=== PATIENT | male | born 1960 | race Caucasian/White ===

== ENCOUNTER 2016-09-29 16:22 | Outpatient (CLI) | payer MEDICAID | END 2016-09-29 16:23 | disposition home or self-care (01) | DX: M17.12 Unilateral primary osteoarthritis, left knee (principal); M25.562 Pain in left knee; M25.552 Pain in left hip; M25.551 Pain in right hip ==

== ENCOUNTER 2017-02-23 15:25 | Outpatient (CLI) | payer MEDICAID ==
[2017-02-23 18:10] LABS: BASOPHILS % (AUTO) 0.9 %; EOSINOPHILS % (AUTO) 0.6 %; HCT - HEMATOCRIT 41.7 % (42.0-52.0); HGB - HEMOGLOBIN 13.9 g/dL (14.0-18.0); LYMPHOCYTES # (AUTO) 1.2 10^3/uL (1.5-3.5); LYMPHOCYTES % (AUTO) 37.1 %; MEAN CORPUSCULAR HEMOGLOBIN 35.3 pg (27.0-31.0); MEAN CORPUSCULAR HGB CONC 33.4 g/dL (32.0-36.0); MEAN CORPUSCULAR VOLUME 105.8 fL (80.0-94.0); MEAN PLATELET VOLUME 7.8 fL (7.4-11.4); MONOCYTES # (AUTO) 0.4 10^3/uL (0.0-1.0); MONOCYTES % (AUTO) 13.1 %; NEUTROPHILS # (AUTO) 1.6 10^3/uL (1.5-6.6); NEUTROPHILS % (AUTO) 48.3 %; NUCLEATED RED BLOOD CELLS AUTO 0.1 /100WBC; RED BLOOD COUNT 3.94 10^6/uL (4.70-6.10); RED CELL DISTRIBUTION WIDTH 14.1 % (12.0-15.0); UNCORRECTED WHITE BLOOD COUNT 3.3 x10^3/uL; WHITE BLOOD COUNT 3.3 x10^3/uL (4.8-10.8)
[2017-02-23 18:30] LABS: ALBUMIN/GLOBULIN RATIO 1.2 (1.0-2.2); BILIRUBIN,TOTAL 0.5 mg/dL (0.2-1.0); BUN - BLOOD UREA NITROGEN 20 mg/dL (6-20); CARBON DIOXIDE - CO2 24 mmol/L (21-32); CHLORIDE 106 mmol/L (101-111); CHOL/HDL RATIO 3.2 (<5.0); CHOLESTEROL 235 mg/dL; CREATININE 0.9 mg/dL (0.6-1.2); GFR - MDRD 87 (>89); GLUCOSE 91 mg/dL (70-100); HDL CHOLESTEROL 73 mg/dL; LDL/HDL RATIO 1.5 (<3.6); POTASSIUM 4.1 mmol/L (3.5-5.0); SODIUM 139 mmol/L (135-145); TOTAL PROTEIN 7.8 g/dL (6.7-8.2); TRIGLYCERIDES 252 mg/dL; VLDL CHOLESTEROL 50 mg/dL
[2017-02-27 14:02] LABS: ANA SCREEN NEGATIVE (NEGATIVE)
== END 2017-02-23 15:26 | disposition home or self-care (01) ==
LOC: LAB.F 15:25
PROVIDERS: ATTEND Nurse Practitioner Family
DX: M25.50 Pain in unspecified joint (principal); Z12.5 Encounter for screening for malignant neoplasm of prostate; Z13.6 Encounter for screening for cardiovascular disorders
CPT/HCPCS: 36415; 80053; 80061; 84153; 85025; 85651; 86038; 86140; 86430

== ENCOUNTER 2017-04-06 16:30 | Outpatient (CLI) | payer MEDICAID ==
--- NOTE | 2017-04-08 08:54 | XRAY Report ---
EXAM: LEFT KNEE RADIOGRAPHY EXAM DATE: 04/06/2017 04:52 PM. CLINICAL HISTORY: PAIN IN LEFT KNEE. COMPARISON: None. TECHNIQUE: 3 views. FINDINGS: Bones: Curvilinear bony density just proximal to the superior aspect of the patella. Joints: Normal. No effusion. No subluxations. Soft Tissues: Mild infrapatellar soft tissue thickening. IMPRESSION: 1. Curvilinear bony density just proximal to the superior aspect of the patella is thought to represe nt enthesopathy at the insertion of the quadriceps tendon. However, correlate with point tenderness i s small avulsion fracture cannot be entirely excluded on this examination. 2. Mild soft tissue thickening in the infrapatellar station is nonspecific but can be seen in the set ting of hematoma and bursitis. [facility] Referring Provider Line: [phone] SITE ID: [id number]
== END 2017-04-06 16:31 | disposition home or self-care (01) ==
LOC: DI.S 16:30
PROVIDERS: ATTEND Nurse Practitioner Family
DX: M85.9 Disorder of bone density and structure, unspecified (principal)

== ENCOUNTER 2017-06-12 16:12 | Outpatient (CLI) | payer MEDICAID ==
--- NOTE | 2017-06-13 11:37 | XRAY Report ---
LUMBAR SPINE, THREE VIEWS: 06/12/2017 HISTORY: Neuropathy, pain. FINDINGS: Approximately 10-degree lumbar levoscoliosis apex L3. Mild retrolisthesis L2 with respect to L3. Degenerative disk space narrowing L3-4, L4-5, and L5-S1. Mild degenerative facet joint arth ropathy lower lumbar levels. IMPRESSION: MILD DEGENERATIVE CHANGE LUMBAR SPINE. TO EXCLUDE LUMBAR SPINAL STENOSIS, SUGGEST CT OR MRI IF CLINICALLY INDICATED. JOB #: [id number] EXT JOB #:[id number]
== END 2017-06-12 16:13 | disposition home or self-care (01) ==
LOC: DI.S 16:12
PROVIDERS: ATTEND Nurse Practitioner Family
DX: G62.9 Polyneuropathy, unspecified (principal)
CPT/HCPCS: 72100

== ENCOUNTER 2017-06-19 17:30 | Outpatient (CLI) | payer MEDICAID | END 2017-06-19 17:31 | disposition critical access hospital (66) | LOC: EMS 17:30 | PROVIDERS: ATTEND Surgery | DX: R41.82 Altered mental status, unspecified (principal); Z72.89 Other problems related to lifestyle | CPT/HCPCS: A0425; A0427 ==

== ENCOUNTER 2017-06-19 17:59 | Emergency (ER) | payer MEDICAID ==
[2017-06-19 18:09] VITALS: BP 157/96
--- NOTE | 2017-06-19 18:46 | ED Physician Documentation ---
PD HPI ALTERED MENTAL STATUS - Stated complaint Stated Complaint: HBD - Chief complaint Chief Complaint: General - History obtained from History obtained from: Patient, EMS - History of Present Illness Timing - onset: Today (just [facility]) Timing - details: Gradual onset Quality / character: Unresponsive (he was found unresponsive in public area and EMS called. They were able to rouse him but he seemed intoxicated. He denied injury nor acute illness. Brought to ED for evaluation. On arrival the patient is wanting to be released so he can catch bus back home.) Associated symptoms: No: Fever, Headache, Dyspnea, NVD Contributing factors: Intoxicated. No: Recent illness, Recent injury Basline status: Alert and oriented X 3, Ambulatory Treatment [facility]: Accucheck Similar symptoms before: Diagnosis (states he drinks regularly) Recently seen: Not recently seen Review of Systems Constitutional: denies: Fever Nose: denies: Rhinorrhea / runny nose, Congestion Throat: denies: Sore throat Cardiac: denies: Chest pain / pressure Respiratory: denies: Cough GI: denies: Abdominal Pain, Vomiting, Diarrhea, Bloody / black stool Skin: denies: Rash, Lesions Musculoskeletal: denies: Neck pain, Back pain Neurologic: denies: Syncope, Headache, Head injury Psychiatric: denies: Depressed, Suicidal PD PAST MEDICAL HISTORY - Past Medical History Cardiovascular: None Respiratory: None Neuro: CVA Endocrine/Autoimmune: None - Allergies Allergies/Adverse Reactions: Allergies Allergy/AdvReac Type Severity Reaction Status Date / Time No Known Drug Allergies Allergy Verified 06/19/17 18:02 - Social History Does the pt smoke?: No Smoking Status: Never smoker Does the pt drink ETOH?: Yes Does the pt have substance abuse?: No PD ED PE NORMAL - Vitals Vital signs reviewed: Yes - General General: Alert and oriented X 3, Well developed/nourished, Other (alcohol smell on breath and somewhat animated but able to talk clearly and walk without ataxia. ) - HEENT HEENT: Atraumatic - Cardiac Cardiac: RRR, No murmur - Respiratory Respiratory: Clear bilaterally - Abdomen Abdomen: Soft, Non tender - Derm Derm: Normal color, Warm and dry - Extremities Extremities: Normal ROM s pain - Neuro Neuro: Alert and oriented X 3, No motor deficit, Normal speech Results - Vitals Vitals: Oxygen O2 Source Room air PD MEDICAL DECISION MAKING - ED course Complexity details: considered differential (here in ED, the patient does have alcohol on breath, but is able to talk clearly and walk to bathroom and back without ataxia. He says he is not injury/ill and wants to leave to catch bus home. Seems reasonable. ), d/w patient Departure - Departure Disposition: 01 Home, Self Care Clinical Impression: Alcohol intoxication Qualifiers: Complication of substance-induced condition: uncomplicated Qualified Code(s): F10.920 - Alcohol use, unspecified with intoxication, uncomplicated Condition: Stable Record reviewed to determine appropriate education?: Yes Instructions: ED Alcohol Intoxication Follow-Up: Rosalia Horn ARNP [Primary Care Provider] - Comments: Avoid excess alcohol. Seek medical treatment for alcohol cessation. Tylenol or ibuprofen if needed for pains. Recheck if any problems. Discharge Date/Time: 06/19/17 19:01
== END 2017-06-19 19:01 | disposition home or self-care (01) ==
LOC: ED 17:59
DX: F10.920 Alcohol use, unspecified with intoxication, uncomplicated (principal); Z86.73 Personal history of transient ischemic attack (TIA), and cerebral infarction without residual deficits
CPT/HCPCS: 99283

== ENCOUNTER 2017-06-28 12:36 | Outpatient (CLI) | payer MEDICAID ==
[2017-06-28 18:23] LABS: ALBUMIN/GLOBULIN RATIO 1.2 (1.0-2.2); BILIRUBIN,TOTAL 0.5 mg/dL (0.2-1.0); BUN - BLOOD UREA NITROGEN 18 mg/dL (6-20); CALCIUM 9.1 mg/dL (8.5-10.3); CARBON DIOXIDE - CO2 25 mmol/L (21-32); CHLORIDE 107 mmol/L (101-111); GFR - MDRD 77 (>89); GLUCOSE 96 mg/dL (70-100); IRON 232 ug/dL (45-182); MAGNESIUM 2.4 mg/dL (1.7-2.8); POTASSIUM 4.1 mmol/L (3.5-5.0); SODIUM 140 mmol/L (135-145); TOTAL IRON BINDING CAPACITY 361 ug/dL (250-450); TOTAL PROTEIN 7.7 g/dL (6.7-8.2); TRANSFERRIN 258 mg/dL (180-329)
[2017-06-28 18:33] LABS: THYROID STIMULATING HORMONE 1.36 uIU/mL (0.34-5.60)
[2017-06-29 07:53] LABS: EOSINOPHILS % (AUTO) 1.1 %; HCT - HEMATOCRIT 39.1 % (42.0-52.0); HGB - HEMOGLOBIN 13.1 g/dL (14.0-18.0); LYMPHOCYTES # (AUTO) 1.8 10^3/uL (1.5-3.5); LYMPHOCYTES % (AUTO) 42.9 %; MEAN CORPUSCULAR HEMOGLOBIN 34.7 pg (27.0-31.0); MEAN CORPUSCULAR HGB CONC 33.5 g/dL (32.0-36.0); MEAN CORPUSCULAR VOLUME 103.5 fL (80.0-94.0); MEAN PLATELET VOLUME 7.3 fL (7.4-11.4); MONOCYTES # (AUTO) 0.7 10^3/uL (0.0-1.0); MONOCYTES % (AUTO) 16.2 %; NEUTROPHILS # (AUTO) 1.6 10^3/uL (1.5-6.6); NEUTROPHILS % (AUTO) 38.8 %; NUCLEATED RED BLOOD CELLS AUTO 0.2 /100WBC; RED BLOOD COUNT 3.77 10^6/uL (4.70-6.10); UNCORRECTED WHITE BLOOD COUNT 4.2 x10^3/uL; WHITE BLOOD COUNT 4.2 x10^3/uL (4.8-10.8)
== END 2017-06-28 12:37 | disposition home or self-care (01) ==
LOC: LAB.F 12:36
PROVIDERS: ATTEND Nurse Practitioner Family
DX: G62.9 Polyneuropathy, unspecified (principal)
CPT/HCPCS: 36415; 80050; 82607; 83540; 83735; 84466

== ENCOUNTER 2017-07-17 12:26 | Outpatient (CLI) | payer MEDICAID ==
--- NOTE | 2017-07-17 23:12 | MRI Preliminary Report ---
Exam: MRI BRAIN W/O Impressions: 1. No acute or subacute ischemic change. 2. Mild generalized cortical atrophy, otherwise negative brain, orbits as detailed. SITE ID: [id number]
--- NOTE | 2017-07-17 23:15 | MRI Report ---
EXAM: MRI BRAIN WITHOUT CONTRAST EXAM DATE: 07/17/2017 01:22 PM. CLINICAL HISTORY: UNSTEADINESS ON FEET. COMPARISON: None. TECHNIQUE: Multiplanar, multisequence T1-weighted and fluid-sensitive MR sequences of the brain were performed. Sequences optimized for routine evaluation. Other: None. IV Contrast: None. Findings: Relevant images are indicated (image number, series number). There is no acute or subacute ischemic changes in the brain. There is no significant hemosiderin deposition in the brain. There is no hemorrhage, mass or midline shift. Basal cisterns, bilateral IACs, bilateral Meckel's cav es clear. Orbital contents negative. Paranasal sinuses, mastoid air cells unremarkable. Mild generalized cortical atrophy, ventricles not dilated. There is no significant white matter disea se present. Pituitary unremarkable. Mild midbrain atrophy. Renal cervical junction, limited evaluation upper cerv ical cord negative. Impressions: 1. No acute or subacute ischemic change. 2. Mild generalized cortical atrophy, otherwise negative brain, orbits as detailed. Referring Provider Line: [phone] SITE ID: [id number]
== END 2017-07-17 12:27 | disposition home or self-care (01) ==
LOC: DI 12:26
PROVIDERS: ATTEND Nurse Practitioner Family
DX: R26.81 Unsteadiness on feet (principal)
CPT/HCPCS: 70551

== ENCOUNTER 2017-09-11 11:34 | Outpatient (CLI) | payer MEDICAID ==
--- NOTE | 2017-09-11 15:00 | Ultrasound Report ---
EXAM: ABDOMEN ULTRASOUND LIMITED, RUQ EXAM DATE: 09/11/2017 12:09 PM. CLINICAL HISTORY: ELEVATED LFTS, ANEMIA. COMPARISON: None. TECHNIQUE: Real-time scanning was performed with static images obtained. FINDINGS: Liver: Normal in size and mildly heterogeneous in echotexture. 14.7 cm. Main portal vein flow: Hepato petal. Biliary System: CBD measures 3.5 mm. No intrahepatic or extrahepatic ductal dilatation. Perihepatic free fluid: None. IMPRESSION: Mild fatty infiltration of the liver. Otherwise negative liver and common bile duct. [facility] Referring Provider Line: [phone] SITE ID: [id number]
== END 2017-09-11 11:35 | disposition home or self-care (01) ==
LOC: DI 11:34
PROVIDERS: ATTEND Internal Medicine Hematology & Oncology
DX: R79.89 Other specified abnormal findings of blood chemistry (principal)
CPT/HCPCS: 76705

== ENCOUNTER 2017-10-09 13:16 | Outpatient (CLI) | payer MEDICAID ==
--- NOTE | 2017-10-09 19:08 | XRAY Report ---
DATE OF SERVICE: 10/09/2017 SKELETAL SURVEY: 10/09/2017 CLINICAL INDICATION: Anemia. Skeletal survey, comprised of lateral skull, frontal and lateral spine, frontal pelvis, frontal chest, and bilateral humeri and femurs was performed. Degenerative changes are present in the spine and hips. No focal osteolytic or osteoblastic lesions are identified. IMPRESSION: Degenerative changes. No radiographic evidence of multiple myeloma. TD: 10/09/2017 20:07
== END 2017-10-09 13:17 | disposition home or self-care (01) ==
LOC: DI 13:16
PROVIDERS: ATTEND Internal Medicine Hematology & Oncology
DX: D64.9 Anemia, unspecified (principal); M16.0 Bilateral primary osteoarthritis of hip; M47.9 Spondylosis, unspecified
CPT/HCPCS: 77075

== ENCOUNTER 2017-12-26 12:47 | Outpatient (CLI) | payer MEDICAID ==
[2017-12-26] MEDS ORDERED: GADOBUTROL 7.5 MMOL/7.5 ML VIAL ONE (12:59)
[2017-12-26] MEDS ORDERED: GADOBUTROL 7.5 MMOL/7.5 ML VIAL IVP ONE (13:52)
--- NOTE | 2017-12-26 17:52 | MRI Report ---
EXAM: MRI CERVICAL SPINE WITHOUT AND WITH CONTRAST EXAM DATE: 12/26/2017 02:37 PM. CLINICAL HISTORY: Paresthesias. COMPARISON: MRI brain from the same date. TECHNIQUE: Multiplanar, multisequence T1-weighted and fluid-sensitive sequences of the cervical spine before and after administration of intravenous contrast. Other: None. IV contrast: 7.5 cc Gadavist. FINDINGS: No suspicious marrow replacement is present in the cervical vertebral bodies. No abnormal T2 signal or enhancement is present in the cervical spinal cord. C2-C3: No posterior disk protrusion. C3-C4: A minimal posterior disk protrusion is seen. Disk/osteophyte complex formation is seen involvi ng the right posterolateral margin of the disk and there is uncovertebral joint spurring on the right . Mild right foraminal stenosis is present. C4-C5: Minimal posterior disk protrusion is seen. Bilateral uncovertebral joint spurring is seen. Mil d right foraminal stenosis. C5-C6: Loss of disk space height is seen. Grade 1 retrolisthesis of C5 relative to C6 is noted. A mil d posterior disk protrusion is seen. Disk/osteophyte complex formation is seen involving the posterol ateral and foraminal margin of the disk. Bilateral uncovertebral joint spurring is seen. At least mod erate bilateral foraminal stenosis is present. Central canal measures 8 mm. Buckling of ligamentum fl avum is seen. C6-C7: A mild subligamentous central disk protrusion is seen. There is narrowing of the ventral CSF s pace and minimal flattening of the ventral cervical spinal cord. No central canal or foraminal stenos is. C7-T1: No posterior disk protrusion. IMPRESSION: 1. Degenerative disk disease, osteophyte formation, and uncovertebral joint spurring are seen at C5-C 6. There is mild central canal stenosis at this level. There is at least moderate bilateral foraminal stenosis at this level. 2. A mild posterior disk protrusion is seen at C6-C7. This does not result in central canal or forami nal stenosis. 3. Mild right foraminal stenosis is present at C3-C4 and at C4-C5. This is due predominantly to uncov ertebral joint spurring. 4. Spondylolisthesis is seen at C5-C6. [facility] Referring Provider Line: [phone] SITE ID: [id number]
--- NOTE | 2017-12-26 17:52 | MRI Report ---
EXAM: MRI BRAIN WITHOUT AND WITH CONTRAST EXAM DATE: 12/26/2017 02:37 PM. CLINICAL HISTORY: Paresthesias. Concern for Guillain-[place] per patient. Numbness and tingling right f oot. Bilateral hand tingling. COMPARISON: MRI cervical spine same date. TECHNIQUE: Multiplanar, multisequence T1-weighted and fluid-sensitive MR sequences of the brain were performed. Sequences optimized for routine evaluation. Other: None. IV Contrast: 7.5 cc Gadavist. FINDINGS: No abnormal diffusion signal is identified in the brain parenchyma. No cerebellar tonsillar ectopia i s present. Ventricles and sulci are within normal limits for the patient's age. No extra-axial fluid collection is present. No abnormal T2 or FLAIR hyperintense signal is identified in the brain parenchyma. Specifically, no a bnormal FLAIR hyperintense signal is identified in the pericallosal/periventricular white matter or i n the infratentorial brain. An expected flow-void is seen in the major intracranial vessels at the skull base. No enhancing mass is identified in the brain parenchyma. Expected enhancement is present in the major dural venous sinuses. No mass is identified in either Me ckel's cave. The cavernous sinuses enhance in symmetric fashion. No mass is present in either orbit. Scattered paranasal sinus mucosal thickening is present. IMPRESSION: 1. Normal contrast-enhanced MRI of the brain. [facility] Referring Provider Line: [phone] SITE ID: [id number]
== END 2017-12-26 12:48 | disposition home or self-care (01) ==
LOC: DI 12:47
PROVIDERS: ATTEND Psychiatry & Neurology Neurology
DX: M50.21 Other cervical disc displacement, high cervical region (principal); M47.892 Other spondylosis, cervical region; M50.31 Other cervical disc degeneration, high cervical region; M43.12 Spondylolisthesis, cervical region
CPT/HCPCS: 70553; 72156; A9585

== ENCOUNTER 2017-12-27 12:47 | Outpatient (CLI) | payer MEDICAID ==
[~2017-12-27 12:47] MED LIST: GADOBUTROL 7.5 MMOL/7.5 ML VIAL ONE
[2017-12-27] MEDS ORDERED: GADOBUTROL 7.5 MMOL/7.5 ML VIAL IVP ONE (14:15)
--- NOTE | 2017-12-27 16:16 | MRI Report ---
EXAM: MRI LUMBAR SPINE WITHOUT AND WITH CONTRAST EXAM DATE: 12/27/2017 02:52 PM. CLINICAL HISTORY: Paresthesias. Right foot numbness and tingling. Decreased range of motion of the ri ght foot. Some dragging of the right foot. Symptoms have been present since May 2017. COMPARISONS: None. TECHNIQUE: Multiplanar, multisequence T1-weighted and fluid-sensitive sequences of the lumbar spine f rom T12 to S1 before and after administration of intravenous contrast. Other: None. IV contrast: 7.5 mL Gadavist. FINDINGS: Spinal Cord: The conus terminates at T12-L1. The conus medullaris and cauda equina are unremarkable. The spinal canal is congenitally shallow. Alignment: No scoliosis or spondylolisthesis. Bone Marrow: Five [id number] lumbar vertebral bodies are assumed. No gross fractures or bone les ions. No bone marrow edema or abnormal enhancement. Disk Levels/Facets: T11-T12: Mild loss of disk space height is seen. Mild lobular broad-based dorsal and left dorsal late ral subligamentous disk protrusion is seen. Mild effacement and flattening of the thecal sac and conu s medullaris is seen. Mild canal stenosis. T12-L1: Unremarkable. L1-L2: Unremarkable. Minimal loss of disk space height is seen. Minimal ventral and lateral bulge of disk/osteophyte complex is seen. No stenosis. L2-L3: Mild degenerative facet changes seen. Fluid is seen in the right facet joint. T2 hypointense d isk signal is seen. Mild dorsal and moderate ventral circumferential disk bulge is seen. Patchy perip heral diskogenic endplate signal change is seen. Effacement of the thecal sac is noted with crowding of cauda equina nerve roots. Moderate canal stenosis. L3-L4: Mild thickening of the ligamentum flavum is seen bilaterally. Minimal loss of disk space heigh t is seen. Minimal dorsal with mild to moderate lateral and ventral circumferential disk bulge is see n. Patchy peripheral diskogenic endplate signal changes seen. Mild left lateral foraminal protrusion and annular fissure is noted. Effacement of the thecal sac is noted. Effacement of exited left L3 ner ve root lateral to the foramen is seen. No stenosis. L4-L5: Mild thickening of the ligamentum flavum is noted. Minimal dorsal with mild lateral and ventra l circumferential disk bulge is seen. Patchy peripheral diskogenic endplate signal change is seen. No stenosis. L5-S1: Unremarkable. Spinal Canal: No enhancing masses within the spinal canal. No epidural abscess. Musculature: Normal. No edema, abnormal enhancement, or fatty atrophy. Other: On axial imaging, a complex 18 mm mass is seen anteriorly in the lower pole of the right kidne y. This demonstrates heterogeneous T1 and T2 signal with heterogeneous enhancement. This does not lui ear to represent a simple cyst by MRI. IMPRESSION: 1. Heterogeneous 18 mm mass anteriorly in the lower pole of the right kidney. Further evaluation with renal CT scan may be of value for further evaluation. 2. Spondylosis in the lower thoracic and upper to mid lumbar spine as noted above. Spinal canal is co ngenitally shallow in this region. -T11-T12: Mild canal stenosis. -L2-L3: Moderate canal stenosis. -L3-L4: Effacement of exited left L3 nerve root lateral to the foramen is seen. Comment: The following findings are so common in adults without low back pain that while we report th eir presence, they must be interpreted with caution and in the context of the clinical situation. (Re sunny Reis et al, Spine 2001) Prevalence of findings in patients without low back pain: Disk degeneration (any evidence): 92% Disk desiccation/T2 signal loss: 83% Disk height loss: 56% Disk bulge: 64% Disk protrusion: 32% Annular tear/high intensity zone: 38% [facility] Referring Provider Line: [phone] SITE ID: [id number]
--- NOTE | 2017-12-27 16:19 | MRI Report ---
EXAM: MRI THORACIC SPINE WITHOUT AND WITH CONTRAST EXAM DATE: 12/27/2017 02:52 PM. CLINICAL HISTORY: PARESTHESIAS. Low back pain. Right foot numbness and tingling. COMPARISONS: None. MRI of the lumbar spine 12/27/2017. TECHNIQUE: Multiplanar, multisequence T1-weighted and fluid-sensitive sequences of the thoracic spine from C7 to L1 before and after administration of intravenous contrast. Other: None. IV contrast: 7.5 cc Gadavist. FINDINGS: Spinal Cord: No signal abnormality in the visualized spinal cord. Alignment: No scoliosis or spondylolisthesis. Bone Marrow: No gross fractures or bone lesion. No bone marrow edema or abnormal enhancement. Disk Levels/Facets: C6-C7: Partially evaluated on sagittal series. Mild central dorsal disk protrusion. No stenosis. C7-T1 through T6-T7: Unremarkable on sagittal series. T7-T8: Unremarkable. T8-T9: Unremarkable. T9-T10: Unremarkable. T10-T11: Unremarkable. T11-T12: Mild loss of disk space height is seen. T2 hypointense disk signal is seen. Dorsal and left dorsolateral subligamentous disk protrusion is seen. Flattening of the thecal sac and spinal cord is seen greater to the left. Mild to moderate canal stenosis. T12-L1: Unremarkable. Spinal Canal: No enhancing masses within the spinal canal. No epidural abscess. Musculature: Normal. No edema, enhancement, or fatty atrophy. Other: The visualized lungs, mediastinum, and abdominal cavity are unremarkable. IMPRESSION: 1. T11-T12: Mild degenerative disk change. Dorsal and left dorsolateral disk protrusion. Mild to mode rate canal stenosis. [facility] Referring Provider Line: [phone] SITE ID: [id number]
== END 2017-12-27 12:48 | disposition home or self-care (01) ==
LOC: DI 12:47
PROVIDERS: ATTEND Psychiatry & Neurology Neurology
DX: M51.24 Other intervertebral disc displacement, thoracic region (principal); M51.34 Other intervertebral disc degeneration, thoracic region; M47.896 Other spondylosis, lumbar region; M51.36 Other intervertebral disc degeneration, lumbar region; N28.89 Other specified disorders of kidney and ureter; M50.223 Other cervical disc displacement at C6-C7 level
CPT/HCPCS: 72157; 72158; A9585

== ENCOUNTER 2018-02-05 14:21 | Outpatient (CLI) | payer MEDICAID ==
[2018-02-05] MEDS ORDERED: IOPAMIDOL-300 100 ML VIAL ONE (14:42)
[2018-02-05] MEDS ORDERED: IOPAMIDOL-300 100 ML VIAL IVP ONE (15:23)
--- NOTE | 2018-02-05 18:13 | CT Report ---
CT ABDOMEN WITH AND WITHOUT CONTRAST: 02/05/2018 CLINICAL INDICATION: Right renal mass on MRI. TECHNIQUE: Axial CT images of the abdomen were obtained prior to and following 100 mL Isovue 300 intravenously, with early arterial and portal venous phases of enhancement. COMPARISON: MRI of the lumbar spine of 12/27/2017. FINDINGS: Limited evaluation of the lung bases is unremarkable. ABDOMEN: There is a 3 mm hypodensity at the dome of the liver, likely representing a tiny cyst. The spleen, pancreas, left kidney and adrenal glands are unremarkable. The right kidney demonstrates a heterogeneous mass in the anterior cortex of the lower pole, measuring 3.0 x 2.9 x 3.0 cm. It demonstrates early arterial enhancement and a small cystic region , which may represent necrosis. Imaging characteristics are suspicious for renal cell carcinoma. The right ureter appears unremarkable, and the right renal vein is patent. The gallbladder is not dilated. No bowel dilatation, free gas, or free fluid is present. No abdominal adenopathy is seen. Osseous structures demonstrate degenerative changes. IMPRESSION: A 3 CM HETEROGENEOUSLY ENHANCING MASS ARISING FROM THE ANTERIOR CORTEX OF THE RIGHT KIDNEY LOWER POLE. THE APPEARANCE IS SUSPICIOUS FOR RENAL CELL CARCINOMA. TD: 02/05/2018 15:37 CRISTÓBAL
== END 2018-02-05 14:22 | disposition home or self-care (01) ==
LOC: DI 14:21
PROVIDERS: ATTEND Nurse Practitioner Family
DX: N28.89 Other specified disorders of kidney and ureter (principal)
CPT/HCPCS: 74170; Q9967

== ENCOUNTER 2018-03-04 13:15 | Outpatient (CLI) | payer MEDICAID ==
[2018-03-04 18:24] LABS: BASOPHILS % (AUTO) 0.5 %; EOSINOPHILS % (AUTO) 0.8 %; HGB - HEMOGLOBIN 14.3 g/dL (14.0-18.0); LYMPHOCYTES # (AUTO) 1.4 10^3/uL (1.5-3.5); MEAN CORPUSCULAR HEMOGLOBIN 35.6 pg (27.0-31.0); MEAN CORPUSCULAR VOLUME 104.5 fL (80.0-94.0); MEAN PLATELET VOLUME 8.6 fL (7.4-11.4); MONOCYTES # (AUTO) 0.7 10^3/uL (0.0-1.0); NEUTROPHILS # (AUTO) 2.1 10^3/uL (1.5-6.6); NEUTROPHILS % (AUTO) 49.7 %; PLT - PLATELET COUNT 145 10^3/uL (130-450); RED BLOOD COUNT 4.03 10^6/uL (4.70-6.10); RED CELL DISTRIBUTION WIDTH 14.4 % (12.0-15.0); WHITE BLOOD COUNT 4.1 x10^3/uL (4.8-10.8)
[2018-03-04 18:52] LABS: ALBUMIN 3.7 g/dL (3.2-5.5); BILIRUBIN,TOTAL 0.8 mg/dL (0.2-1.0); CALCIUM 8.9 mg/dL (8.5-10.3); CREATININE 0.9 mg/dL (0.6-1.2); TOTAL PROTEIN 7.3 g/dL (6.7-8.2)
== END 2018-03-04 13:16 | disposition home or self-care (01) ==
LOC: LAB.F 13:15
PROVIDERS: ATTEND Nurse Practitioner Family
DX: D64.9 Anemia, unspecified (principal); N28.89 Other specified disorders of kidney and ureter
CPT/HCPCS: 36415; 80053; 82043; 82728; 83540; 84466; 85025

== ENCOUNTER 2018-07-02 15:55 | Outpatient (CLI) | payer MEDICAID | END 2018-07-02 15:56 | disposition home or self-care (01) | LOC: RT.S 15:55 | PROVIDERS: ATTEND Nurse Practitioner Family | DX: R07.89 Other chest pain (principal) | CPT/HCPCS: 93005 ==

== ENCOUNTER 2018-09-11 14:29 | Outpatient (CLI) | payer MEDICAID | END 2018-09-11 14:30 | disposition home or self-care (01) | LOC: LAB.F 14:29 | PROVIDERS: ATTEND Nurse Practitioner Family | DX: D64.9 Anemia, unspecified (principal); I10 Essential (primary) hypertension ==

== ENCOUNTER 2018-09-23 11:36 | Outpatient (CLI) | payer MEDICAID ==
[2018-09-23 18:15] LABS: BASOPHILS % (AUTO) 0.7 %; HGB - HEMOGLOBIN 14.9 g/dL (14.0-18.0); LYMPHOCYTES # (AUTO) 1.6 10^3/uL (1.5-3.5); MEAN CORPUSCULAR HEMOGLOBIN 35.5 pg (27.0-31.0); MEAN CORPUSCULAR HGB CONC 33.8 g/dL (32.0-36.0); MEAN PLATELET VOLUME 8.6 fL (7.4-11.4); MONOCYTES # (AUTO) 0.6 10^3/uL (0.0-1.0); MONOCYTES % (AUTO) 13.8 %; NEUTROPHILS % (AUTO) 46.5 %; PLT - PLATELET COUNT 132 10^3/uL (130-450); RED BLOOD COUNT 4.18 10^6/uL (4.70-6.10); RED CELL DISTRIBUTION WIDTH 13.3 % (12.0-15.0); WHITE BLOOD COUNT 4.3 x10^3/uL (4.8-10.8)
[2018-09-23 19:08] LABS: THYROID STIMULATING HORMONE 3.77 uIU/mL (0.34-5.60)
[2018-09-23 19:14] LABS: FERRITIN 496.9 ng/mL (23.9-336.2)
[2018-09-23 19:17] LABS: % IRON SATURATION 50 % (20-50); ALBUMIN/GLOBULIN RATIO 1.2 (1.0-2.2); ALKALINE PHOSPHATASE 52 IU/L (42-121); ALT ALANINE AMINOTRANSFERASE 39 IU/L (10-60); AST ASPARTATE AMINOTRANSFERASE 52 IU/L (10-42); BUN - BLOOD UREA NITROGEN 13 mg/dL (6-20); CALCIUM 9.2 mg/dL (8.5-10.3); CARBON DIOXIDE - CO2 28 mmol/L (21-32); CHLORIDE 100 mmol/L (101-111); CHOL/HDL RATIO 4.1 (<5.0); CHOLESTEROL 236 mg/dL; CREATININE 1.1 mg/dL (0.6-1.2); GFR - MDRD 69 (>89); GLUCOSE 92 mg/dL (70-100); HDL CHOLESTEROL 58 mg/dL; IRON 176 ug/dL (45-182); LDL CHOLESTEROL,CALCULATED 119 mg/dL; LDL/HDL RATIO 2.1 (<3.6); SODIUM 136 mmol/L (135-145); TOTAL IRON BINDING CAPACITY 350 ug/dL (250-450); TOTAL PROTEIN 7.4 g/dL (6.7-8.2); TRANSFERRIN 250 mg/dL (180-329); VLDL CHOLESTEROL 59 mg/dL
== END 2018-09-23 11:37 | disposition home or self-care (01) ==
LOC: LAB.F 11:36
PROVIDERS: ATTEND Nurse Practitioner Family
DX: D64.9 Anemia, unspecified (principal); I10 Essential (primary) hypertension
CPT/HCPCS: 80050; 80061; 82728; 83540; 83721; 84466

== ENCOUNTER 2018-12-29 09:51 | Emergency (ER) | payer MEDICAID ==
--- NOTE | 2018-12-29 11:30 | ED Physician Documentation ---
PD HPI MALE - Stated complaint Stated Complaint: MALE - Chief complaint Chief Complaint: Abd Pain - History obtained from History obtained from: Patient - History of Present Illness Timing - onset: Yesterday (he awoke with firm penis (priapism) yesterday morning and thought it would resolve through the day, but continued into 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. He has started medication trazodone about a week ago for sleep at night and had noticed some unusual firmness of his penis in the mornings for an hour or 2 and then it would dissipate. He thought that would be a similar pattern yesterday but continued with the firmness and it got quite firm through the day and continued into 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. It was fairly uncomfortable and he finally came in for evaluation.) Timing - duration: Days (1) Timing - details: Gradual onset, Still present Associated symptoms: No: Dysuria, Testiclar pain, Scrotal swelling PD HPI MALE CONTRIB FACTORS: Not sexually active Similar symptoms before: Has not had sx before Recently seen: Clinic (For sleep problems and was prescribed trazodone nightly.) Review of Systems Constitutional: denies: Fever Nose: denies: Rhinorrhea / runny nose, Congestion Throat: denies: Sore throat Respiratory: denies: Dyspnea, Cough GI: denies: Nausea, Vomiting : denies: Dysuria, Discharge Skin: denies: Rash, Lesions PD PAST MEDICAL HISTORY - Past Medical History Cardiovascular: None Respiratory: None Endocrine/Autoimmune: None - Present Medications Home Medications: Ambulatory Orders Medication Instructions Recorded Confirmed Acetaminophen [Tylenol] 1 tab PO PRN PRN 09/18/17 09/18/17 Allopurinol 1 tab PO DAILY 09/18/17 09/18/17 Ibuprofen 1 tab PO PRN PRN 09/18/17 09/18/17 Propranolol/Hydrochlorothiazid 1 tab PO DAILY 09/18/17 09/18/17 [Propranolol-Hctz 40-25 mg Tab] - Allergies Allergies/Adverse Reactions: Allergies Allergy/AdvReac Type Severity Reaction Status Date / Time Opioids - Morphine Analogues AdvReac Itching Verified 12/29/18 09:59 - Social History Does the pt smoke?: No Smoking Status: Never smoker Does the pt drink ETOH?: Yes Does the pt have substance abuse?: No PD ED PE NORMAL - Vitals Vital signs reviewed: Yes - General General: Alert and oriented X 3, Well developed/nourished - Neck Neck: Supple, no meningeal sign, No adenopathy - Cardiac Cardiac: RRR, No murmur - Respiratory Respiratory: Clear bilaterally - Male Male : Other (He has a firm priapism without any testicular swelling or tenderness.) - Back Back: No CVA TTP - Derm Derm: Normal color, Warm and dry - Neuro Neuro: Alert and oriented X 3, No motor deficit, Normal speech Results - Vitals Vitals: Vital Signs - 24 hr 12/29/18 12/29/18 09:56 14:10 Temperature 37.0 C 37.2 C Heart Rate 69 64 Respiratory 18 18 Rate Blood Pressure 155/88 H 145/98 H O2 Saturation 99 99 Oxygen O2 Source Room air - Labs Labs: Laboratory Tests 12/29/18 12/29/18 12:54 12:54 WBC 5.8 RBC 3.91 L Hgb 13.5 L Hct 39.5 L MCV 101.1 H MCH 34.4 H MCHC 34.1 RDW 13.7 Plt Count 152 MPV 8.1 Neut # (Auto) 3.8 Lymph # (Auto) 1.2 L [place] # (Auto) 0.7 Eos # (Auto) 0.0 Baso # (Auto) 0.0 Absolute Nucleated RBC 0.00 Nucleated RBC % 0.0 Sodium 138 Potassium 4.2 Chloride 102 Carbon Dioxide 28 Anion Gap 8.0 BUN 13 Creatinine 1.0 Estimated GFR (MDRD) 76 L Glucose 115 H Calcium 9.1 Total Bilirubin 1.2 H AST 36 ALT 29 Alkaline Phosphatase 46 Total Protein 7.1 Albumin 3.7 Globulin 3.4 Albumin/Globulin Ratio 1.1 Lipase 22 Procedures - General procedure General procedure: I did the procedure for priapism with penile aspiration and irrigation. The area around the base of the penis and the shaft were cleansed with chlorhexidine. A dorsalis penis nerve block was done at the base of the nerve using lidocaine with good results of anesthesia along the shaft. The right dorsal aspect of the proximal third of the penis was aspirated using a 19-gauge butterfly with withdrawal of enough fluid for the blood to turn from darker to a little redder and deflation of the priapism. I then irrigated it with some saline but it just reinflated. It was aspirated again and I injected a diluted portion of phenylephrine per recommendations from up-to-date. The blood was aspirated again and this injection aspiration and flushing was repeated several times until there was a good deflation of the penis and I could irrigate with out reexpansion of it. As the last portion of irrigation was done with deflation of the penis a small amount of fluid did go and subcutaneously with bloating of the skin around the base of the shaft. This was stopped as soon as I noticed it was infiltrating there. He had a return of partial expansion of the penis but it was still soft and only about a third full. You could squeeze it and deflated. I contacted on-call urology Dr. De Jesus at [facility] who said this is common post procedure after had been a prolonged priapism due to some clotting and fibrotic change around the exit of the penis. This should improve over the next few days. He is to ice it and do some massaging of the penis to continue the softening. PD MEDICAL DECISION MAKING - ED course Complexity details: reviewed results (His general blood count is okay. I did try to do a arterial blood gas from the penile cavernosum and it was withdrawn directly at the lab said they were unable to run it. I did not repeat the procedure.), considered differential, d/w patient Departure - Departure Disposition: 01 Home, Self Care Clinical Impression: Priapism, drug-induced Condition: Stable Record reviewed to determine appropriate education?: Yes Instructions: ED Priapism Follow-Up: Ron De Jesus MD [Physician No Access] - [facility] [Provider Group] Comments: Stop the trazodone. Follow-up with your primary care regarding other medicines for sleep. He can use some cool towels or ice to the penis today to reduce swelling. The somewhat erect character of her right now is normal for the situation according to the urologist. Return if you have a full erection again. If you are penis returns to normal without any problems in the bruising goes away over the next several days then no follow-up particularly needed. If there is questions or concerns, you can follow-up with the [facility] and I talked with Dr. De Jesus on the phone today. Discharge Date/Time: 12/29/18 14:12
[2018-12-29] MEDS ORDERED: PHENYLEPHRINE 10 MG/ML VIAL IVP ONE (12:14)
[2018-12-29 13:09] LABS: BASOPHILS % (AUTO) 0.4 %; EOSINOPHILS % (AUTO) 0.4 %; HGB - HEMOGLOBIN 13.5 g/dL (14.0-18.0); LYMPHOCYTES # (AUTO) 1.2 10^3/uL (1.5-3.5); MEAN CORPUSCULAR HEMOGLOBIN 34.4 pg (27.0-31.0); MEAN CORPUSCULAR HGB CONC 34.1 g/dL (32.0-36.0); MEAN CORPUSCULAR VOLUME 101.1 fL (80.0-94.0); MEAN PLATELET VOLUME 8.1 fL (7.4-11.4); MONOCYTES # (AUTO) 0.7 10^3/uL (0.0-1.0); MONOCYTES % (AUTO) 12.6 %; NEUTROPHILS # (AUTO) 3.8 10^3/uL (1.5-6.6); NEUTROPHILS % (AUTO) 66.6 %; PLT - PLATELET COUNT 152 10^3/uL (130-450); RED BLOOD COUNT 3.91 10^6/uL (4.70-6.10); RED CELL DISTRIBUTION WIDTH 13.7 % (12.0-15.0); WHITE BLOOD COUNT 5.8 x10^3/uL (4.8-10.8)
[2018-12-29 13:25] LABS: ALBUMIN 3.7 g/dL (3.2-5.5); ALBUMIN/GLOBULIN RATIO 1.1 (1.0-2.2); BILIRUBIN,TOTAL 1.2 mg/dL (0.2-1.0); CALCIUM 9.1 mg/dL (8.5-10.3); TOTAL PROTEIN 7.1 g/dL (6.7-8.2)
[2018-12-29 14:11] VITALS: BP 145/98
== END 2018-12-29 14:12 | disposition home or self-care (01) ==
LOC: ED 09:51
DX: N48.33 Priapism, drug-induced (principal); T43.215A Adverse effect of selective serotonin and norepinephrine reuptake inhibitors, initial encounter
CPT/HCPCS: 36415; 54220; 80053; 83690; 85025; 96374; 99283

== ENCOUNTER 2019-04-21 14:48 | Outpatient (CLI) | payer MEDICAID ==
[2019-04-21 18:36] LABS: CRP - C-REACTIVE PROTEIN 10.3 mg/dL (0-1.0); URIC ACID 7.3 mg/dL (2.6-7.2)
== END 2019-04-21 14:49 | disposition home or self-care (01) ==
LOC: LAB.S 14:48
PROVIDERS: ATTEND Family Medicine
DX: M10.9 Gout, unspecified (principal)
CPT/HCPCS: 36415; 84550; 85651; 86140

== ENCOUNTER 2020-06-23 09:35 | Outpatient (CLI) | payer MEDICAID | END 2020-06-23 09:36 | disposition home or self-care (01) | LOC: LAB.S 09:35 | PROVIDERS: ATTEND Family Medicine | DX: Z53.9 Procedure and treatment not carried out, unspecified reason (principal) ==

== ENCOUNTER 2021-02-18 13:30 | Outpatient (CLI) | payer MEDICAID ==
[2021-02-18] MEDS ORDERED: IOVERSOL 320 100 ML VIAL IVP ONE ×2 (13:43→14:49)
[2021-02-18 14:07] LABS: BILIRUBIN,URINE NEGATIVE (NEGATIVE); GLUCOSE, URINE (UA) NEGATIVE (NEGATIVE); KETONES,URINE (UA) NEGATIVE (NEGATIVE); LEUKOCYTE ESTERASE, URINE NEGATIVE (NEGATIVE); NITRITE,URINE NEGATIVE (NEGATIVE); OCCULT BLOOD,URINE NEGATIVE (NEGATIVE); PROTEIN,URINE NEGATIVE (NEGATIVE); UROBILINOGEN,URINE 0.2 (NORMAL) E.U./dL (NORMAL)
[2021-02-18 14:09] LABS: CLARITY,URINE CLEAR (CLEAR)
[2021-02-18 14:12] LABS: BASOPHILS # (AUTO) 0.1 10^3/uL (0.0-0.1); BASOPHILS % (AUTO) 1.3 %; EOSINOPHILS % (AUTO) 0.2 %; HCT - HEMATOCRIT 41.3 % (42.0-52.0); HGB - HEMOGLOBIN 14.4 g/dL (14.0-18.0); LYMPHOCYTES # (AUTO) 1.7 10^3/uL (1.5-3.5); MEAN CORPUSCULAR HEMOGLOBIN 39.3 pg (27.0-31.0); MEAN CORPUSCULAR HGB CONC 34.9 g/dL (32.0-36.0); MEAN CORPUSCULAR VOLUME 112.8 fL (80.0-94.0); MEAN PLATELET VOLUME 8.7 fL (7.4-11.4); MONOCYTES # (AUTO) 0.5 10^3/uL (0.0-1.0); MONOCYTES % (AUTO) 11.2 %; NEUTROPHILS # (AUTO) 2.4 10^3/uL (1.5-6.6); NEUTROPHILS % (AUTO) 50.7 %; PLT - PLATELET COUNT 170 10^3/uL (130-450); RED BLOOD COUNT 3.66 10^6/uL (4.70-6.10); RED CELL DISTRIBUTION WIDTH 13.4 % (12.0-15.0); WHITE BLOOD COUNT 4.7 x10^3/uL (4.8-10.8)
[2021-02-18 14:20] LABS: BACTERIA,URINE Rare /HPF (None Seen); RBC,URINE 0-5 /HPF (0-5); SQUAMOUS EPITHELIAL CELL,UR FEW Squamous (<= Few); WBC,URINE 0-3 /HPF (0-3)
[2021-02-18 14:25] LABS: ALBUMIN 4.1 g/dL (3.2-5.5); ALBUMIN/GLOBULIN RATIO 1.1 (1.0-2.2); BILIRUBIN,TOTAL 0.9 mg/dL (0.2-1.0); CALCIUM 8.9 mg/dL (8.5-10.3); CREATININE 1.1 mg/dL (0.6-1.2); POTASSIUM 3.4 mmol/L (3.5-5.0); TOTAL PROTEIN 7.9 g/dL (6.7-8.2)
--- NOTE | 2021-02-18 16:34 | CT Report ---
PROCEDURE: ABDOMEN W/WO INDICATIONS: RENAL MASS CONTRAST: IV CONTRAST: Optiray 320 ml: 140 PO CONTRAST: *NO PO CONTRAST TECHNIQUE: Noncontrast 5 mm thick sections acquired from the diaphragms to the symphysis. 5 mm coronal and sagi ttal reformats were then performed. For radiation dose reduction, the following was used: automated exposure control, adjustment of mA and/or kV according to patient size. COMPARISON: 02/05/2018. FINDINGS: Image quality: Excellent. Lung bases: Lung bases are clear. Heart size is normal. Kidneys: Bilateral kidneys are normal in size. There is no hydronephrosis. Tiny 2 to 3 mm nonobstruct ing stone in lower pole of left kidney is seen. Again noted is a heterogeneously enhancing mass invol ving lower pole of right kidney measures 3.7 x 3.1 x 3.6 cm in size series 13 image 32, series 7 imag e 38. Central area of hypodensity is seen suggestive of tumor necrosis. This was also noted in 2018 s tudy and measured 3 x 2.9 x 3 cm in size. Normal contrast excretion is seen without intraluminal fill ing defect. Visualized portion of bilateral ureters are within normal limits. Solid organs: Liver is normal in size. Mild hepatic steatosis is seen. Gallbladder is within normal l imits. Spleen is normal in size and show normal enhancement. Biliary system is non dilated. Pancrea s enhances normally. Kidneys are normal in size and enhancement. No hydronephrosis or nephrolithias is. Peritoneum and bowel: Unenhanced bowel loops are normal in caliber and wall thickness. No free flui d or air. Nodes and vessels: No retroperitoneal or mesenteric adenopathy by size criteria. Aorta and inferior vena cava are normal in size. Miscellaneous: No ventral hernias. Bones: No suspicious bony lesions. No vertebral body compression fractures. Degenerative endplate c hanges and decreased intervertebral disc space throughout lower thoracic and lumbar spine is seen. IMPRESSION: 1. Heterogeneously enhancing mass involving lower pole of right kidney now measures 3.7 x 3.1 x 3.6 c m in size compared to 3 x 2.9 x 3 cm in size on previous study in 2018. 2. Nonobstructing left renal calculus. No enhancing left renal lesion. No hydronephrosis. Normal-appe aring visualized ureter. 3. Hepatic steatosis. 4. No peritoneal or retroperitoneal lymphadenopathy. Reviewed by: Madi Melton MD on 02/18/2021 4:33 PM PDT Approved by: Madi Melton MD on 02/18/2021 4:33 PM PDT Station ID: [id number]
== END 2021-02-18 13:31 | disposition home or self-care (01) ==
LOC: DI 13:30
PROVIDERS: ATTEND Internal Medicine
DX: N28.89 Other specified disorders of kidney and ureter (principal); N20.0 Calculus of kidney; K76.0 Fatty (change of) liver, not elsewhere classified; I10 Essential (primary) hypertension; R78.89 Finding of other specified substances, not normally found in blood
CPT/HCPCS: 36415; 74170; 80053; 81001; 82728; 85025; 85651; Q9967; 87086

== ENCOUNTER 2021-05-23 14:39 | Outpatient (CLI) | payer MEDICAID ==
[2021-05-23 20:22] LABS: ALBUMIN 2.9 g/dL (3.2-5.5); ALBUMIN/GLOBULIN RATIO 0.6 (1.0-2.2); BILIRUBIN,TOTAL 1.5 mg/dL (0.2-1.0); CREATININE 5.7 mg/dL (0.6-1.2); TOTAL PROTEIN 7.8 g/dL (6.7-8.2)
[2021-05-23 20:31] LABS: POTASSIUM 2.3 mmol/L (3.5-5.0)
== END 2021-05-23 14:40 | disposition home or self-care (01) ==
LOC: LAB.S 14:39
PROVIDERS: ATTEND Internal Medicine
DX: I10 Essential (primary) hypertension (principal); R10.9 Unspecified abdominal pain
CPT/HCPCS: 36415; 80053; 82150; 83690

== ENCOUNTER 2021-05-24 11:11 | Inpatient (IN) | payer MEDICAID ==
[2021-05-24] MEDS ORDERED: SODIUM CHLORIDE 0.9% IV STA (11:46)
--- NOTE | 2021-05-24 12:05 | ED Physician Documentation ---
History of Present Illness - Stated complaint Stated Complaint: DIARRHEA - Chief complaint Chief Complaint: Abd Pain - Additonal information Additional information: 60-year-old male presents the emergency department for evaluation of lower a bdominal pain as well as diarrhea for about 2 weeks duration. He was seen by primary care provider yesterday had screening labs obtained which were significant for acute kidney injury and was advised to present to the ER for further evaluation. Patient reports to me that for more than a year he has been having routine imaging of his right kidney for long-term evaluation of a right renal mass. It had been static in size until most recent imaging which showed an increase in the size of the tumor. He is followed by urology Dr. Juan Pablo De La Cruz at [facility] but does not yet know the plan for further evaluation and management of this mass. Patient reports that for about 2 to 3 weeks he has been having watery yellow diarrhea. He is also beginning to have lower abdominal pain with radiation to his left testicle. He denies any fevers. Denies bloody output or melena. He states that he is not vomiting and feels like he is being adequately hydrated. He drinks lots of water as well as smoothies with raw egg. This gentleman lives in [place] and reports difficulty obtaining a follow-up with primary care providers as well as specialty services. Initial presentation to the ER shows a gentleman who is alert but ill-appearing. Noted initial blood pressure of 78/50 with mild tachycardia and no fever. Sepsis protocol was initiated. Review of Systems Constitutional: denies: Fever, Chills Cardiac: denies: Chest pain / pressure, Palpitations, Pedal edema, Calf pain Respiratory: denies: Dyspnea, Cough GI: reports: Abdominal Pain, Diarrhea. denies: Nausea, Vomiting, Bloody / black stool : denies: Dysuria, Frequency, Hesitancy Skin: denies: Rash, Lesions Musculoskeletal: reports: Reviewed and negative Neurologic: reports: Generalized weakness, Near syncope. denies: Focal weakness, Syncope, Reviewed and negative Psychiatric: reports: Reviewed and negative Endocrine: reports: Reviewed and negative PD PAST MEDICAL HISTORY - Past Medical History Cardiovascular: None Respiratory: None Endocrine/Autoimmune: None - Past Surgical History Past Surgical History: No - Present Medications Home Medications: Ambulatory Orders Medication Instructions Recorded Confirmed Acetaminophen [Tylenol] 1 tab PO PRN PRN 09/18/17 09/18/17 Ibuprofen 1 tab PO PRN PRN 09/18/17 09/18/17 allopurinoL [Allopurinol] 100 mg PO DAILY 09/18/17 09/18/17 Lisinopril [Zestril] 40 mg PO DAILY 05/24/21 allopurinoL [Allopurinol] 300 mg PO DAILY 05/24/21 amLODIPine [Norvasc] 5 mg PO DAILY 05/24/21 - Allergies Allergies/Adverse Reactions: Allergies Allergy/AdvReac Type Severity Reaction Status Date / Time Opioids - Morphine Analogues AdvReac Itching Verified 05/24/21 11:30 - Social History Does the pt smoke?: No Smoking Status: Never smoker Does the pt drink ETOH?: Yes Does the pt have substance abuse?: No PD ED PE EXPANDED - General General: Alert, No acute distress, Other (Thin ill-appearing cachectic appearance) - Neck Neck: Supple w/out meningeal sx. No: Adenopathy - Cardiac Cardiac: Regular Rate, Radial strong equal, Pedal strong equal, Cap refill < 2 sec - Respiratory Respiratory: Clear to ausultation ignacio. No: Distress, Labored - Abdomen Abdomen: Normal Bowel sounds, Tender to palpation (Tenderness to the left flank and left lower quadrant without rebound.) - Male Male : Circumcised, Tenderness - Derm Derm: Normal color, Warm and dry. No: Rash - Extremities Extremities: Normal. No: Deformity, Tenderness - Neuro Neuro: Alert and Oriented X 3, CNII-XII intact - GCS Eye Opening: Spontaneous Motor: Obeys Commands Verbal: Oriented Total: 15 Results - Vitals Vitals: Vital Signs - 24 hr 05/24/21 05/24/21 11:22 12:51 Temperature 36.8 C Heart Rate 102 H 89 Respiratory 20 16 Rate Blood Pressure 78/50 L 108/75 O2 Saturation 98 100 Oxygen O2 Source Room air - Labs Labs: Laboratory Tests 05/24/21 05/24/21 05/24/21 09:33 11:55 11:55 WBC 19.8 H RBC 2.84 L Hgb 10.9 L Hct 29.7 L MCV 104.6 H MCH 38.4 H MCHC 36.7 H RDW 15.8 H Plt Count 250 MPV 11.6 H Neut # (Auto) 17.2 H Lymph # (Auto) 0.9 L [place] # (Auto) 1.1 H Eos # (Auto) 0.0 Baso # (Auto) 0.1 Absolute Nucleated RBC 0.06 Nucleated RBC % 0.3 Manual Slide Review Indicated Platelet Morphology RARE GIANT PLATELETS Sodium 130 L Potassium 2.1 L* Chloride 80 L* Carbon Dioxide 25 Anion Gap 25.0 H BUN 102 H* Creatinine 4.5 H Estimated GFR (MDRD) 13 L Glucose 143 H Lactic Acid Calcium 7.3 L Magnesium Total Bilirubin 1.0 AST 84 H ALT 37 Alkaline Phosphatase 102 Total Protein 8.2 Albumin 3.0 L Globulin 5.2 H Albumin/Globulin Ratio 0.6 L Lipase Vitamin B12 Folate Urine Color YELLOW Urine Clarity CLOUDY Urine pH 5.0 Ur Specific [place] >=1.030 H Urine Protein TRACE Urine Glucose (UA) NEGATIVE Urine Ketones NEGATIVE Urine Occult Blood NEGATIVE Urine Nitrite NEGATIVE Urine Bilirubin NEGATIVE Urine Urobilinogen 0.2 (NORMAL) Ur Leukocyte Esterase NEGATIVE Urine RBC 0-5 Urine WBC 0-3 Ur Squamous Epith Cells FEW Squamous Amorphous Sediment Few Urine Bacteria Many H Urine Mucus Few Strands Urine Culture Comments Cancelled 05/24/21 05/24/21 05/24/21 11:55 11:55 11:55 WBC RBC Hgb Hct MCV MCH MCHC RDW Plt Count MPV Neut # (Auto) Lymph # (Auto) [place] # (Auto) Eos # (Auto) Baso # (Auto) Absolute Nucleated RBC Nucleated RBC % Manual Slide Review Platelet Morphology Sodium Potassium Chloride Carbon Dioxide Anion Gap BUN Creatinine Estimated GFR (MDRD) Glucose Lactic Acid 1.5 Calcium Magnesium 1.6 L Total Bilirubin AST ALT Alkaline Phosphatase Total Protein Albumin Globulin Albumin/Globulin Ratio Lipase 61 H Vitamin B12 Folate Urine Color Urine Clarity Urine pH Ur Specific [place] Urine Protein Urine Glucose (UA) Urine Ketones Urine Occult Blood Urine Nitrite Urine Bilirubin Urine Urobilinogen Ur Leukocyte Esterase Urine RBC Urine WBC Ur Squamous Epith Cells Amorphous Sediment Urine Bacteria Urine Mucus Urine Culture Comments 05/24/21 11:55 WBC RBC Hgb Hct MCV MCH MCHC RDW Plt Count MPV Neut # (Auto) Lymph # (Auto) [place] # (Auto) Eos # (Auto) Baso # (Auto) Absolute Nucleated RBC Nucleated RBC % Manual Slide Review Platelet Morphology Sodium Potassium Chloride Carbon Dioxide Anion Gap BUN Creatinine Estimated GFR (MDRD) Glucose Lactic Acid Calcium Magnesium Total Bilirubin AST ALT Alkaline Phosphatase Total Protein Albumin Globulin Albumin/Globulin Ratio Lipase Vitamin B12 634 Folate 9.42 Urine Color Urine Clarity Urine pH Ur Specific [place] Urine Protein Urine Glucose (UA) Urine Ketones Urine Occult Blood Urine Nitrite Urine Bilirubin Urine Urobilinogen Ur Leukocyte Esterase Urine RBC Urine WBC Ur Squamous Epith Cells Amorphous Sediment Urine Bacteria Urine Mucus Urine Culture Comments - Rads (name of study) CT abd Radiology: Final report received (Finding is suggestive of acute pancreatitis with lobulated fluid collection adjacent to the tail the pancreas suggestive of pseudocyst formation. Questionable colonic wall thickening which may be reactive from adjacent inflammatory changes in the pancreas. Low-grade colitis cannot be excluded. ) PD MEDICAL DECISION MAKING - ED course Complexity details: reviewed results, considered differential, d/w patient, d/w family ED course: 60-year-old male who has a history of a known right renal mass presents to the emergency department for evaluation of 2 weeks diarrhea as well as 1 to 2 weeks lower abdominal pain. He was seen by PCP yesterday had screening labs obtained which showed acute kidney injury. He was thus advised to come to the ER. Emergency department he presented alert and well-appearing though thin and cachectic. He was noted to have acute kidney injury with a BUN of 102 and a creatinine of 4.6. Given the 2 weeks of diarrhea this likely is prerenal. He is also noted to be hypokalemic likely secondary to GI losses. 40 mEq of IV potassium has been ordered. A CT of the abdomen without contrast was completed and it is suggestive of acute pancreatitis with likely pseudocyst formation. Patient is noted to have marked leukocytosis. Chest x-ray without acute focal opacity. Urine is pending as well as blood cultures. On presentation he was noted to have initial blood pres sure of 78/50. He was started on at least 2 L of IV fluids which promptly did improve his blood pressure. His lactate was not elevated. I discussed this case with our hospitalist Dr. Calabrese who graciously agrees to admit the patient to the hospital for further evaluation and treatment of his hypokalemia, acute kidney injury, and acute pancreatitis. Any abx to be dictated by Dr. Calabrese. He has requested that we have anesthesia place a CVL to assist with fluids as well as potassium supplementation Departure - Departure Disposition: 66 [facility] DC/Xfer Clinical Impression: DELIO (acute kidney injury), Hypokalemia, Right renal mass Pancreatitis Qualifiers: Chronicity: acute Pancreatitis type: unspecified pancreatitis type Acute pancreatitis complication: unspecified Qualified Code(s): K85.90 - Acute pancreatitis without necrosis or infection, unspecified Discharge Date/Time: 05/24/21 13:52
--- NOTE | 2021-05-24 12:36 | CT Report ---
PROCEDURE: Abdomen/Pelvis WO INDICATIONS: DELIO; diarrhea; hx of kidney tumor TECHNIQUE: After oral contrast ingestion, 5 mm thick sections acquired from the diaphragms to the symphysis. 5 mm coronal and sagittal reformats were then performed. For radiation dose reduction, the following w as used: automated exposure control, adjustment of mA and/or kV according to patient size. COMPARISON: 02/18/2021 and 02/05/2018. FINDINGS: Image quality: Excellent. ABDOMEN: Lung bases: Lung bases are clear. Heart size is normal. Solid organs: Liver and spleen are normal in size. Hepatic steatosis is seen. Gallbladder is within normal limits. Pancreas is enlarged in size with heterogeneous pancreatic parenchymal density. Extensive peripancrea tic fat stranding and trace amount of fluid is seen suggestive of acute pancreatitis. Lobulated fluid collection inferior to tail of pancreas is seen measures up to 7.6 x 5.2 x 18.6 cm in size series 3 image 51 and series 6 image 29 concerning for pseudocyst formation. No adrenal nodules. Kidneys are normal in size, without hydronephrosis. Nonobstructing stone in lowe r pole of left kidney is again seen and unchanged. Patient's known solid mass involving lower pole of right kidney is again seen, and measures up to 3.2 x 3 x 4.1 cm in size on the current study compare d to 3.7 x 3.1 x 3.6 cm in size a previous study, although current evaluation is limited due to lack of contrast opacification. Peritoneum and bowel: There is no bowel obstruction. No gross gastric or small bowel wall thickening. Questionable colonic wall thickening is seen. No abscess collection. No free fluid of free air. Sigm oid diverticulosis is seen, no CT evidence of acute diverticulitis. Nodes and vessels: No retroperitoneal or mesenteric adenopathy by size criteria. Aorta and inferior vena cava are normal in caliber. Miscellaneous: No ventral hernias. PELVIS: Genitourinary: There is mild diffuse bladder wall thickening, no discrete bladder wall mass. Miscellaneous: No inguinal hernias or adenopathy. Bones: No suspicious bony lesions. No vertebral body compression fractures. IMPRESSION: 1. Finding is suggestive of acute pancreatitis with lobulated fluid collection adjacent to tail of pa ncreas as described above suggestive of pseudocyst formation. 2. Questionable colonic wall thickening which may be reactive from adjacent inflammatory changes in t he pancreas. Low-grade colitis cannot be excluded. No bowel obstruction. No free fluid of free air. 3. Patient's known lower pole right renal mass appears smaller on the current study although this may be due to lack of IV contrast. No obstructing renal stone or hydronephrosis. 4. Hepatic steatosis. Reviewed by: Madi Melton MD on 05/24/2021 12:35 PM PDT Approved by: Madi Melton MD on 05/24/2021 12:35 PM PDT Station ID: [id number]
[2021-05-24 12:41] LABS: ALBUMIN/GLOBULIN RATIO 0.6 (1.0-2.2); BASOPHILS # (AUTO) 0.1 10^3/uL (0.0-0.1); BASOPHILS % (AUTO) 0.7 %; CALCIUM 7.3 mg/dL (8.5-10.3); CREATININE 4.5 mg/dL (0.6-1.2); EOSINOPHILS % (AUTO) 0.1 %; HCT - HEMATOCRIT 29.7 % (42.0-52.0); HGB - HEMOGLOBIN 10.9 g/dL (14.0-18.0); LYMPHOCYTES # (AUTO) 0.9 10^3/uL (1.5-3.5); LYMPHOCYTES % (AUTO) 4.5 %; MEAN CORPUSCULAR HEMOGLOBIN 38.4 pg (27.0-31.0); MEAN CORPUSCULAR HGB CONC 36.7 g/dL (32.0-36.0); MEAN CORPUSCULAR VOLUME 104.6 fL (80.0-94.0); MEAN PLATELET VOLUME 11.6 fL (7.4-11.4); MONOCYTES # (AUTO) 1.1 10^3/uL (0.0-1.0); MONOCYTES % (AUTO) 5.3 %; NEUTROPHILS # (AUTO) 17.2 10^3/uL (1.5-6.6); NEUTROPHILS % (AUTO) 86.9 %; NRBC ABSOLUTE COUNT (AUTO) 0.06 x10^3/uL; NUCLEATED RED BLOOD CELLS AUTO 0.3 /100WBC; PLT - PLATELET COUNT 250 10^3/uL (130-450); RED BLOOD COUNT 2.84 10^6/uL (4.70-6.10); RED CELL DISTRIBUTION WIDTH 15.8 % (12.0-15.0); SLIDE REVIEW? Indicated; TOTAL PROTEIN 8.2 g/dL (6.7-8.2); WHITE BLOOD COUNT 19.8 x10^3/uL (4.8-10.8)
[2021-05-24 12:45] LABS: POTASSIUM 2.1 mmol/L (3.5-5.0)
[2021-05-24] MEDS ORDERED: POTASSIUM CHLOR 10 MEQ/100 ML 10 MEQ/100 ML BAG IV STA (13:07)
[2021-05-24] MEDS ORDERED: ONDANSETRON 4 MG/2 ML VIAL IVP PRN (13:08)
[2021-05-24] MEDS ORDERED: ONDANSETRON ODT 4 MG TABLET TL PRN (13:08)
[2021-05-24 13:10] LABS: PLATELET MORPHOLOGY RARE GIANT PLATELETS (NORMAL)
--- NOTE | 2021-05-24 13:13 | HISTORY & PHYSICAL EXAMINATION ---
Chief Complaint - Chief Complaint Chief Complaint: Diarrhea History of Present Illness - Admitted From Admitted From:: Home - History Obtained From Records Reviewed: Yes History obtained from: Patient, ER Physician, EMR - History of Present Illness HPI Comment/Other: This is a 60-year-old male with a past medical history significant for hypertension and gout who presents today complaining of diarrhea and abnormal labs. He states he has had diarrhea now for the past month. He reports having anywhere from 3-10 bowel movements a day. He has not had a formed stool all month and it is predominantly liquid and quite foul-smelling. He denies any recent antibiotic use or travel. He denies a change in his diet. He does report abdominal pain that began about 1 week ago and is predominantly in the lower abdomen and radiates at times into his groin. He does report associated nausea and vomiting but he has not vomited in the past 2 days. Reports no fevers or chills. Denies chest pain, dyspnea, dysuria, urgency, hematuria. He reports having a right renal mass for which she is followed by urology at the [facility]. He states the plan had been to monitor the mass but most recent imaging shows that it has changed in size and he was reportedly sent to his primary care physician yesterday for labs which revealed the renal f ailure and hypokalemia. Here in our emergency department, he is noted to be afebrile with a heart rate in the 90s. He is normotensive. He is not tachypneic and saturating well on room air. Labs are significant for a white count of 19.8 with a left shift. His sodium is 130, potassium 2.1, chloride 80. His BUN is 102 and his creatinine is 4.5. Lactic acid is within normal limits. His lipase is 61. Urinalysis showed bacteria but no leukocyte esterase or nitrites and no pyuria. CT of the abdomen pelvis without contrast was suggestive of acute pancreatitis with a fluid collection suggestive of pseudocyst formation. There was also questionable colitis on CT. There is no evidence of obstruction or hydronephrosis. Given the above findings, medicine was consulted for admission. I did discuss goals of care with the patient and he would like to be a DNR. History - Past Medical History Cardiovascular: reports: Hypertension Respiratory: reports: None Endocrine/Autoimmune: reports: None Musculoskeletal: reports: Gout MRSA Hx?: No - Family & Social History Family History Comment/Other: Reports his mother had a history of breast cancer. He does not know his father's side of the family. Denies any other significant family. Living arrangement: At home Living Situation: With family Social History Notes: He lives at home with his mother who is in her 80s. He reports a heavy history of alcohol use for about 20 to 30 years up until the 1999. He was drinking on a daily basis during that time. He now still drinks alcohol but reports he will drink anywhere from 0 to 5 drinks a week. He reports a prior history of smoking. He will smoke occasional marijuana but denies any other drug use. - POLST Patient has POLST: No Meds/Allgy - Home Medications Home Medications: Ambulatory Orders Medication Instructions Recorded Confirmed Acetaminophen [Tylenol] 1 tab PO PRN PRN 09/18/17 09/18/17 Ibuprofen 1 tab PO PRN PRN 09/18/17 09/18/17 allopurinoL [Allopurinol] 100 mg PO DAILY 09/18/17 09/18/17 Lisinopril [Zestril] 40 mg PO DAILY 05/24/21 allopurinoL [Allopurinol] 300 mg PO DAILY 05/24/21 amLODIPine [Norvasc] 5 mg PO DAILY 05/24/21 - Allergies Allergies/Adverse Reactions: Allergies Allergy/AdvReac Type Severity Reaction Status Date / Time Opioids - Morphine Analogues AdvReac Itching Verified 05/24/21 11:30 Review of Systems - Constitutional Constitutional: denies: Fever, Chills - Cardiovascular Cariovascular: denies: Chest pain, Exertional dyspnea, Decr. exercise tolerance - Respiratory Respiratory: denies: Cough, SOB at rest, SOB with exertion - Gastrointestinal Gastrointestinal: reports: Abdominal pain, Diarrhea, Change in bowel habits, Nausea, Vomiting. denies: Constipation, Poor appetite - Genitourinary Genitourinary: denies: Dysuria, Frequency, Urgency, Hematuria, Incontinence, Flank pain - Musculoskeletal Musculoskeletal: denies: Muscle pain, Back pain - Integumentary Integumentary: denies: Rash - Neurological Neurological: denies: General weakness, Focal weakness - All Other Systems All Other Systems: reports: Reviewed and negative Prior Level of Functionality: He is independent with his ADLs. Exam - Vital Signs Vital Signs: Vital Signs x48h Temp Pulse Resp BP Pulse Ox 05/24/21 12:51 89 16 108/75 100 05/24/21 11:22 36.8 C 102 H 20 78/50 L 98 Conclusion/Plan - Problem List (1) DELIO (acute kidney injury) Conclusion/Plan: He has acute renal failure likely secondary to prerenal losses due to the diarrhea. His creatinine is already improved compared to yesterday but remains quite elevated still and his BUN is greater than 100. Imaging did not reveal an obvious source of obstruction. We will hydrate him with normal saline and avoid nephrotoxins. Hold home lisinopril. Monitor renal function daily as well as urine output. (2) Diarrhea Conclusion/Plan: This is presumed to be infectious in the cause of his renal failure and hyperkalemia. C. difficile and stool cultures are pending. We will hold off on antibiotics unless there is an obvious source of infection. If C. difficile is negative then we will consider Imodium. We will hydrate him with normal saline. (3) Pancreatitis Conclusion/Plan: Concern is for pancreatitis given CT showed pancreatic edema and concern for pseudocyst. He does have mild abdominal pain but surprisingly, his lipase is only in the 60s. Nonetheless, we will trend his lipase and check an amylase. We will keep him n.p.o. for time being we will start him on a clear liquid diet this evening. Hydrate him with normal saline. Pain control with morphine IV as needed. Qualifiers: Chronicity: acute Pancreatitis type: unspecified pancreatitis type Acute pancreatitis complication: unspecified Qualified Code(s): K85.90 - Acute pancreatitis without necrosis or infection, unspecified (4) Hypokalemia Conclusion/Plan: Potassium is decreased at 2.1 and this is likely due to GI losses. Magnesium is also decreased at 1.6. We will replace his magnesium and followed by his potassium aggressively. Central line has been placed and will place him in the intensive care unit for aggressive electrolyte replacement. (5) Hyponatremia Conclusion/Plan: This is likely hypovolemic hyponatremia secondary to GI losses. We will hydrate him with normal saline and recheck a BMP in the morning. (6) Leukocytosis Conclusion/Plan: Suspect this is likely reactive. There is no obvious source of infection at this time. We will hold off antibiotics and follow-up the urinalysis and blood cultures. If there is evidence of infection then we will start antibiotics empirically. (7) Right renal mass Conclusion/Plan: He has known right renal mass for which he follows with urology at the [facility]. He will need continued follow-up of this mass once discharged. - Lab Results Fish Bones: 05/24/21 11:55 05/24/21 11:55 - Diagnostic Imaging Results Diagnostic Imaging Results: positive: Final report reviewed Core Measures - Anticipated LOS I expect patient to be DC'd or transferred within 96 hours.: Yes - Issues Hospital Issues and Management Plan: 60-year-old male presents with diarrhea and now has acute renal failure and likely pancreatitis. We will admit for IV hydration and electrolyte replacement given his severe hypokalemia. - DVT/VTE - Prophylaxis VTE/DVT Device ordered at admit?: Yes VTE/DVT Prophylaxis med ordered at admit?: Yes
--- NOTE | 2021-05-24 13:45 | XRAY Report ---
PROCEDURE: Chest 1 View X-Ray INDICATIONS: leukocytosis; TECHNIQUE: One view of the chest was acquired. COMPARISON: None FINDINGS: Surgical changes and devices: None. Lungs and pleura: No pleural effusions or pneumothorax. Lungs are clear. Mediastinum: Mediastinal contours appear normal. Heart size is normal. Bones and chest wall: No suspicious bony lesions. Overlying soft tissues appear unremarkable. IMPRESSION: No acute process. Reviewed by: Sami Irby MD on 05/24/2021 1:43 PM PDT Approved by: Sami Irby MD on 05/24/2021 1:43 PM PDT Station ID: [id number]
[2021-05-24 13:54] LABS: FOLATE 9.42 ng/mL (5.90 - >24.8)
[2021-05-24] MEDS ORDERED: NS W/20 MEQ KCL 1,000 ML IV SCH (14:00)
[2021-05-24 14:43] LABS: BILIRUBIN,URINE NEGATIVE (NEGATIVE); GLUCOSE, URINE (UA) NEGATIVE (NEGATIVE); KETONES,URINE (UA) NEGATIVE (NEGATIVE); LEUKOCYTE ESTERASE, URINE NEGATIVE (NEGATIVE); NITRITE,URINE NEGATIVE (NEGATIVE); OCCULT BLOOD,URINE NEGATIVE (NEGATIVE); PROTEIN,URINE TRACE mg/dL (NEGATIVE); UROBILINOGEN,URINE 0.2 (NORMAL) E.U./dL (NORMAL)
[2021-05-24 14:44] LABS: CLARITY,URINE CLOUDY (CLEAR)
[2021-05-24 14:50] LABS: AMORPHOUS SEDIMENT,UR Few /LPF; BACTERIA,URINE Many /HPF (None Seen); MUCUS,URINE Few Strands; RBC,URINE 0-5 /HPF (0-5); SQUAMOUS EPITHELIAL CELL,UR FEW Squamous (<= Few); WBC,URINE 0-3 /HPF (0-3)
[2021-05-24] MEDS ORDERED: CALCIUM GLUCONATE 1,000 MG in SODIUM CHLORIDE 0.9% 50 ML IV ONE (15:07)
[2021-05-24] MEDS ORDERED: MAGNESIUM SULFATE 2 GRAM 2 GM/50 ML BAG IV ONE (15:07)
--- NOTE | 2021-05-24 15:22 | ANESTHESIA PROCEDURE NOTE ---
Anesth Central Line Template - Central Line Central Line Preparation: Consent Obtained, Time out completed, Ultrasound used, Sterile prep and drape Central line location: Right IJ Central line type: Triple lumen Central line catheter tip site resides: Superior vena cava (SVC) Central line aftercare: Secured, Placement confirmed (Cath threaded to 18, secured. Tegaderm to site.), No complications, Bundle checklist complete, Pt tolerated well
[2021-05-24] MEDS ORDERED: SODIUM CHLORIDE 0.9% 500 ML IV PRN (15:26)
--- NOTE | 2021-05-24 15:34 | XRAY Report ---
PROCEDURE: Chest for Line Placement INDICATIONS: new CVL @R IJ TECHNIQUE: One view of the chest was acquired. COMPARISON: None FINDINGS: Surgical changes and devices: A right IJ catheter appears well-positioned. Lungs and pleura: No pleural effusions or pneumothorax. Lungs are clear. Mediastinum: Mediastinal contours appear normal. Heart size is normal. Bones and chest wall: No suspicious bony lesions. Overlying soft tissues appear unremarkable. IMPRESSION: 1. No acute cardiopulmonary abnormality. 2. Right IJ catheter appears well-positioned. Reviewed by: Rod Ricardo on 05/24/2021 3:33 PM PDT Approved by: Rod Ricardo on 05/24/2021 3:33 PM PDT Station ID: [id number]
[2021-05-24] MEDS: SODIUM CHLORIDE FLUSH 0.9% 10 ML SYRINGE IVP PRN ×4 (16:14→23:20)
[2021-05-24 16:51] LABS: B. PARAPERTUSSIS- RESP PCR PAN NOT DETECTED; B. PERTUSSIS- RESP PCR PANEL NOT DETECTED; C. PNEUMONIAE- RESP PCR PANEL NOT DETECTED; CORONAVIRUS 229E-RESP PCR NOT DETECTED; CORONAVIRUS HKU1-RESP PCR NOT DETECTED; CORONAVIRUS NL63-RESP PCR NOT DETECTED; CORONAVIRUS OC43-RESP PCR NOT DETECTED; HUMAN METAPNEUMOVIRUS NOT DETECTED; INFLUENZA A- RESP PCR PANEL NOT DETECTED; INFLUENZA B - RESP PCR PANEL NOT DETECTED; M. PNEUMONIAE- RESP PCR PANEL NOT DETECTED; PARAINFLUENZA VIRUS 1 NOT DETECTED; PARAINFLUENZA VIRUS 2 NOT DETECTED; PARAINFLUENZA VIRUS 3 NOT DETECTED; PARAINFLUENZA VIRUS 4 NOT DETECTED; RHINOVIRUS/ENTEROVIRUS NOT DETECTED; RSV- RESP PCR PANEL NOT DETECTED; SARS-CoV-2 -RESP PCR PANEL NOT DETECTED
[2021-05-24] MEDS: LACTATED RINGERS 1,000 ML IV SCH ×2 (16:55→21:39)
[2021-05-24] MEDS: POTASSIUM CHLOR 20 MEQ/100 ML 20 MEQ/100 ML BAG IV SCH ×4 (17:04→20:47)
[2021-05-24] MEDS: PANTOPRAZOLE 40 MG TABLET PO SCH (17:16)
[2021-05-24] MEDS: MORPHINE 2 MG/ML CARPUJECT IVP PRN ×2 (17:27→23:20)
[2021-05-24] MEDS: SODIUM CHLORIDE FLUSH 0.9% 10 ML SYRINGE IVP SCH ×2 (17:30→20:49)
[2021-05-24 19:30] LABS: CALCIUM 7.1 mg/dL (8.5-10.3); CREATININE 3.1 mg/dL (0.6-1.2); POTASSIUM 2.6 mmol/L (3.5-5.0)
[2021-05-24] MEDS: CARBOXYMETHYLCELLULOSE OPHTH DROPS EACHEYE PRN (19:43)
[2021-05-24] MEDS: HEPARIN 5,000 UNIT/ML VIAL SUBQ SCH (20:20)
[2021-05-24] MEDS: POTASSIUM CHLOR 10 MEQ/100 ML 10 MEQ/100 ML BAG IV SCH ×2 (22:07→23:18)
[2021-05-25] MEDS: POTASSIUM CHLOR 10 MEQ/100 ML 10 MEQ/100 ML BAG IV SCH ×2 (00:21→01:19)
[2021-05-25] MEDS: LACTATED RINGERS 1,000 ML IV SCH ×5 (02:32→20:15)
[2021-05-25] MEDS: SODIUM CHLORIDE FLUSH 0.9% 10 ML SYRINGE IVP PRN ×2 (05:11→06:36)
[2021-05-25] MEDS: SODIUM CHLORIDE FLUSH 0.9% 10 ML SYRINGE IVP SCH ×4 (05:11→20:14)
[2021-05-25 05:50] LABS: BASOPHILS # (AUTO) 0.1 10^3/uL (0.0-0.1); BASOPHILS % (AUTO) 0.8 %; EOSINOPHILS % (AUTO) 0.1 %; HCT - HEMATOCRIT 23.9 % (42.0-52.0); HGB - HEMOGLOBIN 8.7 g/dL (14.0-18.0); LYMPHOCYTES # (AUTO) 0.3 10^3/uL (1.5-3.5); LYMPHOCYTES % (AUTO) 2.2 %; MEAN CORPUSCULAR HEMOGLOBIN 39.4 pg (27.0-31.0); MEAN CORPUSCULAR HGB CONC 36.4 g/dL (32.0-36.0); MEAN CORPUSCULAR VOLUME 108.1 fL (80.0-94.0); MEAN PLATELET VOLUME 11.3 fL (7.4-11.4); MONOCYTES # (AUTO) 0.8 10^3/uL (0.0-1.0); MONOCYTES % (AUTO) 5.4 %; NEUTROPHILS # (AUTO) 13.5 10^3/uL (1.5-6.6); NEUTROPHILS % (AUTO) 88.9 %; NRBC ABSOLUTE COUNT (AUTO) 0.04 x10^3/uL; NUCLEATED RED BLOOD CELLS AUTO 0.3 /100WBC; PLT - PLATELET COUNT 228 10^3/uL (130-450); RED BLOOD COUNT 2.21 10^6/uL (4.70-6.10); RED CELL DISTRIBUTION WIDTH 16.4 % (12.0-15.0); WHITE BLOOD COUNT 15.1 x10^3/uL (4.8-10.8)
[2021-05-25 06:04] LABS: ALBUMIN 2.2 g/dL (3.2-5.5); BILIRUBIN,DIRECT 0.3 mg/dL (0.1-0.5); BILIRUBIN,TOTAL 1.5 mg/dL (0.2-1.0); CALCIUM 7.9 mg/dL (8.5-10.3); CREATININE 1.9 mg/dL (0.6-1.2); MAGNESIUM 1.9 mg/dL (1.7-2.8); PHOSPHORUS 3.9 mg/dL (2.5-4.6); POTASSIUM 2.9 mmol/L (3.5-5.0); TOTAL PROTEIN 6.2 g/dL (6.7-8.2)
[2021-05-25] MEDS: PANTOPRAZOLE 40 MG TABLET PO SCH (06:32)
[2021-05-25] MEDS: MORPHINE 2 MG/ML CARPUJECT IVP PRN ×3 (06:36→20:14)
--- NOTE | 2021-05-25 07:31 | PROVIDER PROGRESS NOTE ---
Subjective - Prog Note Date Prog Note Date: 05/25/21 - Subjective Subjective: He reports his diarrhea has resolved. He feels abdominal pain is improved but is still present. No nausea or vomiting. Has been tolerating a clear liquid diet. Current Medications - Current Medications Current Medications: Active Medications Acetaminophen (Acetaminophen 325 Mg Tablet) 650 mg PO Q4HR PRN PRN Reason: Pain 1 to 4 Carboxymethylcellulose (Carboxymethylcellulose Ophth Drops) 1 drops EACHEYE PRN PRN PRN Reason: Dry Eye Last Admin: 05/24/21 19:43 Dose: 1 drops Documented by: Heparin Sodium (Porcine) (Heparin 5,000 Unit/Ml Vial) 5,000 unit SUBQ BID [place] Last Admin: 05/24/21 20:20 Dose: 5,000 unit Documented by: Sodium Chloride (Normal Saline 0.9%) 500 mls @ 20 mls/hr IV Q24H PRN PRN Reason: TKO RATE Last Admin: 05/24/21 17:31 Dose: 20 mls/hr Documented by: Lactated Ringer's (Lr) 1,000 mls @ 200 mls/hr IV .Q5H [facility] Last Admin: 05/25/21 02:32 Dose: 200 mls/hr Documented by: Potassium Chloride (Potassium Chloride) 20 meq in 100 mls @ 100 mls/hr IV Q1H [facility]; Protocol Stop: 05/25/21 10:59 Morphine Sulfate (Morphine 2 Mg/Ml Carpuject) 2 mg IVP Q2HR PRN PRN Reason: PAIN Last Admin: 05/25/21 06:36 Dose: 2 mg Documented by: Ondansetron HCl (Ondansetron Odt 4 Mg Tablet) 4 mg TL Q6HR PRN PRN Reason: Nausea / Vomiting Ondansetron HCl (Ondansetron 4 Mg/2 Ml Vial) 4 mg IVP Q6HR PRN PRN Reason: Nausea / Vomiting Pantoprazole Sodium (Pantoprazole 40 Mg Tablet) 40 mg PO QDAC [facility] Last Admin: 05/25/21 06:32 Dose: 40 mg Documented by: Sodium Chloride (Sodium Chloride Flush 0.9% 10 Ml Syringe) 10 ml IVP 0100,0900,1700 [facility] Last Admin: 05/25/21 05:11 Dose: 10 ml Documented by: Sodium Chloride (Sodium Chloride Flush 0.9% 10 Ml Syringe) 10 ml IVP PRN PRN PRN Reason: NEEDED PER PROVIDER ORDERS Last Admin: 05/25/21 06:36 Dose: 10 ml Documented by: Sodium Chloride (Sodium Chloride Flush 0.9% 10 Ml Syringe) 20 ml IVP PRN PRN PRN Reason: After Blood Draw Last Admin: 05/25/21 05:11 Dose: 20 ml Documented by: Acetaminophen [Tylenol] 1 tab PO PRN PRN 09/18/17 Ibuprofen 1 tab PO PRN PRN 09/18/17 allopurinoL [Allopurinol] 100 mg PO DAILY 09/18/17 Lisinopril [Zestril] 40 mg PO DAILY 05/24/21 allopurinoL [Allopurinol] 300 mg PO DAILY 05/24/21 amLODIPine [Norvasc] 5 mg PO DAILY 05/24/21 Objective - Vital Signs/Intake & Output Reviewed Vital Signs: Yes Vital Signs: Vital Signs Temp Pulse Resp BP Pulse Ox 05/25/21 06:00 37 C 94 21 146/73 H 96 05/25/21 05:00 37 C 93 23 133/68 H 100 05/25/21 04:00 37.3 C 94 20 136/64 H 97 Intake & Output: Intake & Output 05/22/21 05/23/21 05/24/21 05/25/21 23:59 23:59 23:59 23:59 Intake Total 2190.000 1653.334 Output Total 1575 875 Balance 615.000 778.334 - Objective General Appearance: positive: No acute distress, Alert Eyes Bilateral: positive: Normal inspection, Conjunctivae nml ENT: positive: ENT inspection nml Neck: positive: Nml inspection Respiratory: positive: No respiratory distress. negative: Wheezes, Rales Cardiovascular: positive: Regular rate & rhythm. negative: Tachycardia, Sy stolic murmur Abdomen: positive: Nml bowel sounds, No distention, Tenderness (Epigastric and left lower quadrant.). negative: Guarding, Rebound Rectal: positive: Other (He has no testicular tenderness or edema. There is very mild erythema which appears to be due to irritation and not cellulitis. No penile discharge or pain.) Skin: positive: Warm, Dry Extremities: positive: No pedal edema Neurologic/Psychiatric: positive: Motor nml. negative: Disoriented to person, Disoriented to place, Disoriented to time - Lab Results Fish Bones: 05/25/21 14:05 05/25/21 14:05 Other Labs: Lab Results x24hrs 05/25/21 05/25/21 05/25/21 Range/Units 05:19 05:15 05:15 WBC 15.1 H (4.8-10.8) x10^3/uL RBC 2.21 L (4.70-6.10) 10^6/uL Hgb 8.7 L (14.0-18.0) g/dL Hct 23.9 L (42.0-52.0) % MCV 108.1 H (80.0-94.0) fL MCH 39.4 H (27.0-31.0) pg MCHC 36.4 H (32.0-36.0) g/dL RDW 16.4 H (12.0-15.0) % Plt Count 228 (130-450) 10^3/uL MPV 11.3 (7.4-11.4) fL Neut # (Auto) 13.5 H (1.5-6.6) 10^3/uL Lymph # (Auto) 0.3 L (1.5-3.5) 10^3/uL [place] # (Auto) 0.8 (0.0-1.0) 10^3/uL Eos # (Auto) 0.0 (0.0-0.7) 10^3/uL Baso # (Auto) 0.1 (0.0-0.1) 10^3/uL Absolute Nucleated RBC 0.04 x10^3/uL Nucleated RBC % 0.3 /100WBC Manual Slide Review Platelet Morphology (NORMAL) Sodium 135 (135-145) mmol/L Potassium 2.9 L (3.5-5.0) mmol/L Chloride 97 L (101-111) mmol/L Carbon Dioxide 23 (21-32) mmol/L Anion Gap 15.0 H (6-13) BUN 76 H (6-20) mg/dL Creatinine 1.9 H (0.6-1.2) mg/dL Estimated GFR (MDRD) 36 L (>89) Glucose 127 H (70-100) mg/dL POC Whole Bld Glucose 100 (70 - 100) mg/dL Lactic Acid (0.5-2.2) mmol/L Calcium 7.9 L (8.5-10.3) mg/dL Phosphorus 3.9 (2.5-4.6) mg/dL Magnesium 1.9 (1.7-2.8) mg/dL Total Bilirubin 1.5 H (0.2-1.0) mg/dL Direct Bilirubin 0.3 (0.1-0.5) mg/dL AST 74 H (10-42) IU/L ALT 29 (10-60) IU/L Alkaline Phosphatase 80 (42-121) IU/L Total Protein 6.2 L (6.7-8.2) g/dL Albumin 2.2 L (3.2-5.5) g/dL Globulin 4.0 (2.1-4.2) g/dL Albumin/Globulin Ratio (1.0-2.2) Amylase 64 (28-100) U/L Lipase 43 (22-51) U/L Vitamin B12 (180-914) pg/mL Folate (5.90 - >24.8) ng/mL Urine Color Urine Clarity (CLEAR) Urine pH (5.0-7.5) PH Ur Specific [place] (1.002-1.030) Urine Protein (NEGATIVE) mg/dL Urine Glucose (UA) (NEGATIVE) mg/dL Urine Ketones (NEGATIVE) mg/dL Urine Occult Blood (NEGATIVE) Urine Nitrite (NEGATIVE) Urine Bilirubin (NEGATIVE) Urine Urobilinogen (NORMAL) E.U./dL Ur Leukocyte Esterase (NEGATIVE) Urine RBC (0-5) /HPF Urine WBC (0-3) /HPF Ur Squamous Epith Cells (<= Few) Amorphous Sediment /LPF Urine Bacteria (None Seen) /HPF Urine Mucus Urine Culture Comments Nasal Adenovirus (PCR) Nasal B. parapertussis DNA (PCR) Nasal Coronavir 229E PCR Nasal Coronavir HKU1 PCR Nasal Coronavir NL63 PCR Nasal Coronavir OC43 PCR Nasal Enterovir/Rhinovir PCR Nasal Influenza B PCR Nasal Influenza A PCR Nasal Parainfluen 1 PCR Nasal Parainfluen 2 PCR Nasal Parainfluen 3 PCR Nasal Parainfluen 4 PCR Nasal RSV (PCR) Nasal Screen MRSA (PCR) (NEGATIVE) Nasal B.pertussis DNA PCR Nasal C.pneumoniae (PCR) Benjy Human Metapneumo PCR Nasal M.pneumoniae (PCR) Nasal SARS-CoV-2 (PCR) Stl C. diff Tox B Gene (NEGATIVE) 05/24/21 05/24/21 05/24/21 Range/Units 23:24 19:10 19:10 WBC (4.8-10.8) x10^3/uL RBC (4.70-6.10) 10^6/uL Hgb (14.0-18.0) g/dL Hct (42.0-52.0) % MCV (80.0-94.0) fL MCH (27.0-31.0) pg MCHC (32.0-36.0) g/dL RDW (12.0-15.0) % Plt Count (130-450) 10^3/uL MPV (7.4-11.4) fL Neut # (Auto) (1.5-6.6) 10^3/uL Lymph # (Auto) (1.5-3.5) 10^3/uL [place] # (Auto) (0.0-1.0) 10^3/uL Eos # (Auto) (0.0-0.7) 10^3/uL Baso # (Auto) (0.0-0.1) 10^3/uL Absolute Nucleated RBC x10^3/uL Nucleated RBC % /100WBC Manual Slide Review Platelet Morphology (NORMAL) Sodium 131 L (135-145) mmol/L Potassium 2.6 L (3.5-5.0) mmol/L Chloride 90 L (101-111) mmol/L Carbon Dioxide 21 (21-32) mmol/L Anion Gap 20.0 H (6-13) BUN 90 H* (6-20) mg/dL Creatinine 3.1 H (0.6-1.2) mg/dL Estimated GFR (MDRD) 21 L (>89) Glucose 121 H (70-100) mg/dL POC Whole Bld Glucose 112 H (70 - 100) mg/dL Lactic Acid (0.5-2.2) mmol/L Calcium 7.1 L (8.5-10.3) mg/dL Phosphorus (2.5-4.6) mg/dL Magnesium 2.2 (1.7-2.8) mg/dL Total Bilirubin (0.2-1.0) mg/dL Direct Bilirubin (0.1-0.5) mg/dL AST (10-42) IU/L ALT (10-60) IU/L Alkaline Phosphatase (42-121) IU/L Total Protein (6.7-8.2) g/dL Albumin (3.2-5.5) g/dL Globulin (2.1-4.2) g/dL Albumin/Globulin Ratio (1.0-2.2) Amylase (28-100) U/L Lipase (22-51) U/L Vitamin B12 (180-914) pg/mL Folate (5.90 - >24.8) ng/mL Urine Color Urine Clarity (CLEAR) Urine pH (5.0-7.5) PH Ur Specific [place] (1.002-1.030) Urine Protein (NEGATIVE) mg/dL Urine Glucose (UA) (NEGATIVE) mg/dL Urine Ketones (NEGATIVE) mg/dL Urine Occult Blood (NEGATIVE) Urine Nitrite (NEGATIVE) Urine Bilirubin (NEGATIVE) Urine Urobilinogen (NORMAL) E.U./dL Ur Leukocyte Esterase (NEGATIVE) Urine RBC (0-5) /HPF Urine WBC (0-3) /HPF Ur Squamous Epith Cells (<= Few) Amorphous Sediment /LPF Urine Bacteria (None Seen) /HPF Urine Mucus Urine Culture Comments Nasal Adenovirus (PCR) Nasal B. parapertussis DNA (PCR) Nasal Coronavir 229E PCR Nasal Coronavir HKU1 PCR Nasal Coronavir NL63 PCR Nasal Coronavir OC43 PCR Nasal Enterovir/Rhinovir PCR Nasal Influenza B PCR Nasal Influenza A PCR Nasal Parainfluen 1 PCR Nasal Parainfluen 2 PCR Nasal Parainfluen 3 PCR Nasal Parainfluen 4 PCR Nasal RSV (PCR) Nasal Screen MRSA (PCR) (NEGATIVE) Nasal B.pertussis DNA PCR Nasal C.pneumoniae (PCR) Benjy Human Metapneumo PCR Nasal M.pneumoniae (PCR) Nasal SARS-CoV-2 (PCR) Stl C. diff Tox B Gene (NEGATIVE) 05/24/21 05/24/21 05/24/21 Range/Units 18:29 17:35 15:57 WBC (4.8-10.8) x10^3/uL RBC (4.70-6.10) 10^6/uL Hgb (14.0-18.0) g/dL Hct (42.0-52.0) % MCV (80.0-94.0) fL MCH (27.0-31.0) pg MCHC (32.0-36.0) g/dL RDW (12.0-15.0) % Plt Count (130-450) 10^3/uL MPV (7.4-11.4) fL Neut # (Auto) (1.5-6.6) 10^3/uL Lymph # (Auto) (1.5-3.5) 10^3/uL [place] # (Auto) (0.0-1.0) 10^3/uL Eos # (Auto) (0.0-0.7) 10^3/uL Baso # (Auto) (0.0-0.1) 10^3/uL Absolute Nucleated RBC x10^3/uL Nucleated RBC % /100WBC Manual Slide Review Platelet Morphology (NORMAL) Sodium (135-145) mmol/L Potassium (3.5-5.0) mmol/L Chloride (101-111) mmol/L Carbon Dioxide (21-32) mmol/L Anion Gap (6-13) BUN (6-20) mg/dL Creatinine (0.6-1.2) mg/dL Estimated GFR (MDRD) (>89) Glucose (70-100) mg/dL POC Whole Bld Glucose 122 H (70 - 100) mg/dL Lactic Acid (0.5-2.2) mmol/L Calcium (8.5-10.3) mg/dL Phosphorus (2.5-4.6) mg/dL Magnesium (1.7-2.8) mg/dL Total Bilirubin (0.2-1.0) mg/dL Direct Bilirubin (0.1-0.5) mg/dL AST (10-42) IU/L ALT (10-60) IU/L Alkaline Phosphatase (42-121) IU/L Total Protein (6.7-8.2) g/dL Albumin (3.2-5.5) g/dL Globulin (2.1-4.2) g/dL Albumin/Globulin Ratio (1.0-2.2) Amylase (28-100) U/L Lipase (22-51) U/L Vitamin B12 (180-914) pg/mL Folate (5.90 - >24.8) ng/mL Urine Color Urine Clarity (CLEAR) Urine pH (5.0-7.5) PH Ur Specific [place] (1.002-1.030) Urine Protein (NEGATIVE) mg/dL Urine Glucose (UA) (NEGATIVE) mg/dL Urine Ketones (NEGATIVE) mg/dL Urine Occult Blood (NEGATIVE) Urine Nitrite (NEGATIVE) Urine Bilirubin (NEGATIVE) Urine Urobilinogen (NORMAL) E.U./dL Ur Leukocyte Esterase (NEGATIVE) Urine RBC (0-5) /HPF Urine WBC (0-3) /HPF Ur Squamous Epith Cells (<= Few) Amorphous Sediment /LPF Urine Bacteria (None Seen) /HPF Urine Mucus Urine Culture Comments Nasal Adenovirus (PCR) NOT DETECTED Nasal B. parapertussis DNA (PCR) NOT DETECTED Nasal Coronavir 229E PCR NOT DETECTED Nasal Coronavir HKU1 PCR NOT DETECTED Nasal Coronavir NL63 PCR NOT DETECTED Nasal Coronavir OC43 PCR NOT DETECTED Nasal Enterovir/Rhinovir PCR NOT DETECTED Nasal Influenza B PCR NOT DETECTED Nasal Influenza A PCR NOT DETECTED Nasal Parainfluen 1 PCR NOT DETECTED Nasal Parainfluen 2 PCR NOT DETECTED Nasal Parainfluen 3 PCR NOT DETECTED Nasal Parainfluen 4 PCR NOT DETECTED Nasal RSV (PCR) NOT DETECTED Nasal Screen MRSA (PCR) (NEGATIVE) Nasal B.pertussis DNA PCR NOT DETECTED Nasal C.pneumoniae (PCR) NOT DETECTED Benjy Human Metapneumo PCR NOT DETECTED Nasal M.pneumoniae (PCR) NOT DETECTED Nasal SARS-CoV-2 (PCR) NOT DETECTED Stl C. diff Tox B Gene NEGATIVE (NEGATIVE) 05/24/21 05/24/21 05/24/21 Range/Units 14:50 11:55 11:55 WBC (4.8-10.8) x10^3/uL RBC (4.70-6.10) 10^6/uL Hgb (14.0-18.0) g/dL Hct (42.0-52.0) % MCV (80.0-94.0) fL MCH (27.0-31.0) pg MCHC (32.0-36.0) g/dL RDW (12.0-15.0) % Plt Count (130-450) 10^3/uL MPV (7.4-11.4) fL Neut # (Auto) (1.5-6.6) 10^3/uL Lymph # (Auto) (1.5-3.5) 10^3/uL [place] # (Auto) (0.0-1.0) 10^3/uL Eos # (Auto) (0.0-0.7) 10^3/uL Baso # (Auto) (0.0-0.1) 10^3/uL Absolute Nucleated RBC x10^3/uL Nucleated RBC % /100WBC Manual Slide Review Platelet Morphology (NORMAL) Sodium (135-145) mmol/L Potassium (3.5-5.0) mmol/L Chloride (101-111) mmol/L Carbon Dioxide (21-32) mmol/L Anion Gap (6-13) BUN (6-20) mg/dL Creatinine (0.6-1.2) mg/dL Estimated GFR (MDRD) (>89) Glucose (70-100) mg/dL POC Whole Bld Glucose (70 - 100) mg/dL Lactic Acid (0.5-2.2) mmol/L Calcium (8.5-10.3) mg/dL Phosphorus 8.1 H (2.5-4.6) mg/dL Magnesium (1.7-2.8) mg/dL Total Bilirubin (0.2-1.0) mg/dL Direct Bilirubin (0.1-0.5) mg/dL AST (10-42) IU/L ALT (10-60) IU/L Alkaline Phosphatase (42-121) IU/L Total Protein (6.7-8.2) g/dL Albumin (3.2-5.5) g/dL Globulin (2.1-4.2) g/dL Albumin/Globulin Ratio (1.0-2.2) Amylase (28-100) U/L Lipase (22-51) U/L Vitamin B12 634 (180-914) pg/mL Folate 9.42 (5.90 - >24.8) ng/mL Urine Color Urine Clarity (CLEAR) Urine pH (5.0-7.5) PH Ur Specific [place] (1.002-1.030) Urine Protein (NEGATIVE) mg/dL Urine Glucose (UA) (NEGATIVE) mg/dL Urine Ketones (NEGATIVE) mg/dL Urine Occult Blood (NEGATIVE) Urine Nitrite (NEGATIVE) Urine Bilirubin (NEGATIVE) Urine Urobilinogen (NORMAL) E.U./dL Ur Leukocyte Esterase (NEGATIVE) Urine RBC (0-5) /HPF Urine WBC (0-3) /HPF Ur Squamous Epith Cells (<= Few) Amorphous Sediment /LPF Urine Bacteria (None Seen) /HPF Urine Mucus Urine Culture Comments Nasal Adenovirus (PCR) Nasal B. parapertussis DNA (PCR) Nasal Coronavir 229E PCR Nasal Coronavir HKU1 PCR Nasal Coronavir NL63 PCR Nasal Coronavir OC43 PCR Nasal Enterovir/Rhinovir PCR Nasal Influenza B PCR Nasal Influenza A PCR Nasal Parainfluen 1 PCR Nasal Parainfluen 2 PCR Nasal Parainfluen 3 PCR Nasal Parainfluen 4 PCR Nasal RSV (PCR) Nasal Screen MRSA (PCR) NEGATIVE (NEGATIVE) Nasal B.pertussis DNA PCR Nasal C.pneumoniae (PCR) Benjy Human Metapneumo PCR Nasal M.pneumoniae (PCR) Nasal SARS-CoV-2 (PCR) Stl C. diff Tox B Gene (NEGATIVE) 05/24/21 05/24/21 05/24/21 Range/Units 11:55 11:55 11:55 WBC (4.8-10.8) x10^3/uL RBC (4.70-6.10) 10^6/uL Hgb (14.0-18.0) g/dL Hct (42.0-52.0) % MCV (80.0-94.0) fL MCH (27.0-31.0) pg MCHC (32.0-36.0) g/dL RDW (12.0-15.0) % Plt Count (130-450) 10^3/uL MPV (7.4-11.4) fL Neut # (Auto) (1.5-6.6) 10^3/uL Lymph # (Auto) (1.5-3.5) 10^3/uL [place] # (Auto) (0.0-1.0) 10^3/uL Eos # (Auto) (0.0-0.7) 10^3/uL Baso # (Auto) (0.0-0.1) 10^3/uL Absolute Nucleated RBC x10^3/uL Nucleated RBC % /100WBC Manual Slide Review Platelet Morphology (NORMAL) Sodium (135-145) mmol/L Potassium (3.5-5.0) mmol/L Chloride (101-111) mmol/L Carbon Dioxide (21-32) mmol/L Anion Gap (6-13) BUN (6-20) mg/dL Creatinine (0.6-1.2) mg/dL Estimated GFR (MDRD) (>89) Glucose (70-100) mg/dL POC Whole Bld Glucose (70 - 100) mg/dL Lactic Acid 1.5 (0.5-2.2) mmol/L Calcium (8.5-10.3) mg/dL Phosphorus (2.5-4.6) mg/dL Magnesium 1.6 L (1.7-2.8) mg/dL Total Bilirubin (0.2-1.0) mg/dL Direct Bilirubin (0.1-0.5) mg/dL AST (10-42) IU/L ALT (10-60) IU/L Alkaline Phosphatase (42-121) IU/L Total Protein (6.7-8.2) g/dL Albumin (3.2-5.5) g/dL Globulin (2.1-4.2) g/dL Albumin/Globulin Ratio (1.0-2.2) Amylase (28-100) U/L Lipase 61 H (22-51) U/L Vitamin B12 (180-914) pg/mL Folate (5.90 - >24.8) ng/mL Urine Color Urine Clarity (CLEAR) Urine pH (5.0-7.5) PH Ur Specific [place] (1.002-1.030) Urine Protein (NEGATIVE) mg/dL Urine Glucose (UA) (NEGATIVE) mg/dL Urine Ketones (NEGATIVE) mg/dL Urine Occult Blood (NEGATIVE) Urine Nitrite (NEGATIVE) Urine Bilirubin (NEGATIVE) Urine Urobilinogen (NORMAL) E.U./dL Ur Leukocyte Esterase (NEGATIVE) Urine RBC (0-5) /HPF Urine WBC (0-3) /HPF Ur Squamous Epith Cells (<= Few) Amorphous Sediment /LPF Urine Bacteria (None Seen) /HPF Urine Mucus Urine Culture Comments Nasal Adenovirus (PCR) Nasal B. parapertussis DNA (PCR) Nasal Coronavir 229E PCR Nasal Coronavir HKU1 PCR Nasal Coronavir NL63 PCR Nasal Coronavir OC43 PCR Nasal Enterovir/Rhinovir PCR Nasal Influenza B PCR Nasal Influenza A PCR Nasal Parainfluen 1 PCR Nasal Parainfluen 2 PCR Nasal Parainfluen 3 PCR Nasal Parainfluen 4 PCR Nasal RSV (PCR) Nasal Screen MRSA (PCR) (NEGATIVE) Nasal B.pertussis DNA PCR Nasal C.pneumoniae (PCR) Benjy Human Metapneumo PCR Nasal M.pneumoniae (PCR) Nasal SARS-CoV-2 (PCR) Stl C. diff Tox B Gene (NEGATIVE) 05/24/21 05/24/21 05/24/21 Range/Units 11:55 11:55 09:33 WBC 19.8 H (4.8-10.8) x10^3/uL RBC 2.84 L (4.70-6.10) 10^6/uL Hgb 10.9 L (14.0-18.0) g/dL Hct 29.7 L (42.0-52.0) % MCV 104.6 H (80.0-94.0) fL MCH 38.4 H (27.0-31.0) pg MCHC 36.7 H (32.0-36.0) g/dL RDW 15.8 H (12.0-15.0) % Plt Count 250 (130-450) 10^3/uL MPV 11.6 H (7.4-11.4) fL Neut # (Auto) 17.2 H (1.5-6.6) 10^3/uL Lymph # (Auto) 0.9 L (1.5-3.5) 10^3/uL [place] # (Auto) 1.1 H (0.0-1.0) 10^3/uL Eos # (Auto) 0.0 (0.0-0.7) 10^3/uL Baso # (Auto) 0.1 (0.0-0.1) 10^3/uL Absolute Nucleated RBC 0.06 x10^3/uL Nucleated RBC % 0.3 /100WBC Manual Slide Review Indicated Platelet Morphology RARE GIANT PLATELETS (NORMAL) Sodium 130 L (135-145) mmol/L Potassium 2.1 L* (3.5-5.0) mmol/L Chloride 80 L* (101-111) mmol/L Carbon Dioxide 25 (21-32) mmol/L Anion Gap 25.0 H (6-13) BUN 102 H* (6-20) mg/dL Creatinine 4.5 H (0.6-1.2) mg/dL Estimated GFR (MDRD) 13 L (>89) Glucose 143 H (70-100) mg/dL POC Whole Bld Glucose (70 - 100) mg/dL Lactic Acid (0.5-2.2) mmol/L Calcium 7.3 L (8.5-10.3) mg/dL Phosphorus (2.5-4.6) mg/dL Magnesium (1.7-2.8) mg/dL Total Bilirubin 1.0 (0.2-1.0) mg/dL Direct Bilirubin (0.1-0.5) mg/dL AST 84 H (10-42) IU/L ALT 37 (10-60) IU/L Alkaline Phosphatase 102 (42-121) IU/L Total Protein 8.2 (6.7-8.2) g/dL Albumin 3.0 L (3.2-5.5) g/dL Globulin 5.2 H (2.1-4.2) g/dL Albumin/Globulin Ratio 0.6 L (1.0-2.2) Amylase (28-100) U/L Lipase (22-51) U/L Vitamin B12 (180-914) pg/mL Folate (5.90 - >24.8) ng/mL Urine Color YELLOW Urine Clarity CLOUDY (CLEAR) Urine pH 5.0 (5.0-7.5) PH Ur Specific [place] >=1.030 H (1.002-1.030) Urine Protein TRACE (NEGATIVE) mg/dL Urine Glucose (UA) NEGATIVE (NEGATIVE) mg/dL Urine Ketones NEGATIVE (NEGATIVE) mg/dL Urine Occult Blood NEGATIVE (NEGATIVE) Urine Nitrite NEGATIVE (NEGATIVE) Urine Bilirubin NEGATIVE (NEGATIVE) Urine Urobilinogen 0.2 (NORMAL) (NORMAL) E.U./dL Ur Leukocyte Esterase NEGATIVE (NEGATIVE) Urine RBC 0-5 (0-5) /HPF Urine WBC 0-3 (0-3) /HPF Ur Squamous Epith Cells FEW Squamous (<= Few) Amorphous Sediment Few /LPF Urine Bacteria Many H (None Seen) /HPF Urine Mucus Few Strands Urine Culture Comments Cancelled Nasal Adenovirus (PCR) Nasal B. parapertussis DNA (PCR) Nasal Coronavir 229E PCR Nasal Coronavir HKU1 PCR Nasal Coronavir NL63 PCR Nasal Coronavir OC43 PCR Nasal Enterovir/Rhinovir PCR Nasal Influenza B PCR Nasal Influenza A PCR Nasal Parainfluen 1 PCR Nasal Parainfluen 2 PCR Nasal Parainfluen 3 PCR Nasal Parainfluen 4 PCR Nasal RSV (PCR) Nasal Screen MRSA (PCR) (NEGATIVE) Nasal B.pertussis DNA PCR Nasal C.pneumoniae (PCR) Benjy Human Metapneumo PCR Nasal M.pneumoniae (PCR) Nasal SARS-CoV-2 (PCR) Stl C. diff Tox B Gene (NEGATIVE) Assessment/Plan - Problem List (1) DELIO (acute kidney injury) Impression: This is significantly improved. This was likely prerenal in nature due to volu me loss from the diarrhea. His creatinine today is now down to 1.9 and his BUN continues to decrease. There was no evidence of obstruction on imaging. We will continue with gentle IV hydration and avoid nephrotoxins. Continue to hold home lisinopril until his acute kidney injury is resolved. (2) Diarrhea Impression: This appears to have resolved. C. difficile has been negative. Stool cultures are pending. Will use Imodium as needed and continue to monitor. (3) Pancreatitis Impression: His lipase remains within normal limits. His CT did show peripancreatic edema and concern for pseudocyst. He also had abdominal pain although this may be related to cramping due to his diarrhea. Repeat lipase and amylase 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 are within normal limits. Overall, his pain is improved today and so we will start him on a clear liquid diet and continue with IV hydration. We will continue with morphine for pain control. CT did not show any obvious gallstones and given his normal LFTs, we will hold off on an ultrasound. Qualifiers: Chronicity: acute Pancreatitis type: unspecified pancreatitis type Acute pancreatitis complication: unspecified Qualified Code(s): K85.90 - Acute pancreatitis without necrosis or infection, unspecified (4) Hypokalemia Impression: This was likely secondary to GI losses. His potassium is improved to 2.9 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. We will continue with aggressive potassium supplementation. (5) Hyponatremia Impression: This was likely hypovolemic hyponatremia and has resolved with IV hydration. His sodium is now within normal limits. (6) Leukocytosis Impression: His white count is improved today but still elevated at 15,000. This is presumed to be reactive given the lack of evidence of infection. His urinalysis and chest x-ray were unremarkable. He has also been afebrile. We will continue to hold off on antibiotics. We will follow up blood cultures which should be back this afternoon. (7) Macrocytic anemia Impression: His hemoglobin did decrease to 8.7 today which I suspect is likely dilutional given the amount of IV fluids he received. His MCV is elevated at 108. His B12 and folate were within normal limits. We will check iron studies including ferritin. I suspect his anemia may related to his history of alcohol use. He is also on allopurinol at home which could cause a macrocytic anemia. We will also check his stool for occult blood. (8) Right renal mass Impression: He has known right renal mass for which he follows with urology at the [facility]. He will need continued follow-up of this mass once discharged.
[2021-05-25 08:12] LABS: VBG PH 7.467 (7.31-7.41)
[2021-05-25 08:13] LABS: CALCIUM, IONIZED 1.04 mmol/L (1.15-1.33)
[2021-05-25] MEDS: POTASSIUM CHLOR 20 MEQ/100 ML 20 MEQ/100 ML BAG IV SCH ×5 (08:14→16:29)
[2021-05-25] MEDS: HEPARIN 5,000 UNIT/ML VIAL SUBQ SCH ×2 (08:19→20:15)
[2021-05-25 08:27] LABS: % IRON SATURATION 12 % (20-50); IRON 13 ug/dL (45-182); TOTAL IRON BINDING CAPACITY 112 ug/dL (250-450); TRANSFERRIN 80 mg/dL (180-329)
[2021-05-25 08:36] LABS: THYROID STIMULATING HORMONE 2.57 uIU/mL (0.34-5.60)
[2021-05-25] MEDS: CALCIUM CARB (OYSTER SHELL) 500 MG TABLET PO SCH ×2 (09:30→13:14)
--- NOTE | 2021-05-25 10:50 | PHARMACY PROGRESS NOTE ---
- Best Possible Medication History Admit Date and Time: 05/24/21 1309 Processed by: Pharmacy Medication History completed: Yes Patient Interview: Completed (PATIENT ABLE TO TO CONFIRM HOME MEDICATIONS) As the person ultimately responsible for medication therapy, providers are able to order a medication from an existing home medication list in [facility] via the "Reconcile Routine" prior to Confirmation of that medication by help desk support. Such practice is discouraged except when the physician, in their clinical judgment, deems that a medical need exists for a medication without regard to previous use.
[2021-05-25] MEDS: ACETAMINOPHEN 325 MG TABLET PO PRN ×3 (11:21→23:16)
[2021-05-25 14:27] LABS: HCT - HEMATOCRIT 24.7 % (42.0-52.0); HGB - HEMOGLOBIN 8.8 g/dL (14.0-18.0)
[2021-05-25 18:40] LABS: CALCIUM, IONIZED 1.13 mmol/L (1.15-1.33); VBG PH 7.465 (7.31-7.41)
[2021-05-25] MEDS: CARBOXYMETHYLCELLULOSE OPHTH DROPS EACHEYE PRN (20:17)
[2021-05-25] MEDS ORDERED: diphenhydrAMINE INJ 50 MG/ML VIAL IVP PRN (23:54)
[2021-05-26] MEDS: PANTOPRAZOLE 40 MG TABLET PO SCH (05:46)
[2021-05-26] MEDS: ACETAMINOPHEN 325 MG TABLET PO PRN (05:46)
[2021-05-26] MEDS: SODIUM CHLORIDE FLUSH 0.9% 10 ML SYRINGE IVP PRN ×2 (05:47)
[2021-05-26 06:14] LABS: BASOPHILS # (AUTO) 0.1 10^3/uL (0.0-0.1); BASOPHILS % (AUTO) 0.5 %; EOSINOPHILS % (AUTO) 0.2 %; HCT - HEMATOCRIT 22.5 % (42.0-52.0); HGB - HEMOGLOBIN 7.7 g/dL (14.0-18.0); LYMPHOCYTES # (AUTO) 0.6 10^3/uL (1.5-3.5); LYMPHOCYTES % (AUTO) 5.9 %; MEAN CORPUSCULAR HEMOGLOBIN 38.7 pg (27.0-31.0); MEAN CORPUSCULAR HGB CONC 34.2 g/dL (32.0-36.0); MEAN CORPUSCULAR VOLUME 113.1 fL (80.0-94.0); MEAN PLATELET VOLUME 10.7 fL (7.4-11.4); MONOCYTES # (AUTO) 0.7 10^3/uL (0.0-1.0); MONOCYTES % (AUTO) 6.4 %; NEUTROPHILS # (AUTO) 8.6 10^3/uL (1.5-6.6); PLT - PLATELET COUNT 250 10^3/uL (130-450); RED BLOOD COUNT 1.99 10^6/uL (4.70-6.10); WHITE BLOOD COUNT 10.2 x10^3/uL (4.8-10.8)
[2021-05-26 06:16] LABS: SLIDE REVIEW? Indicated
[2021-05-26 06:28] LABS: CALCIUM 8.1 mg/dL (8.5-10.3); CREATININE 1.1 mg/dL (0.6-1.2); MAGNESIUM 1.2 mg/dL (1.7-2.8); PHOSPHORUS 2.5 mg/dL (2.5-4.6); POTASSIUM 3.3 mmol/L (3.5-5.0)
[2021-05-26] MEDS: LACTATED RINGERS 1,000 ML IV SCH (06:40)
[2021-05-26 07:15] LABS: PLATELET ESTIMATE, MANUAL NORMAL (130-450,000) (NORMAL); PLATELET MORPHOLOGY NORMAL APPEARANCE (NORMAL)
--- NOTE | 2021-05-26 07:40 | PROVIDER PROGRESS NOTE ---
Objective - Vital Signs/Intake & Output Vital Signs: Vital Signs x48h Temp Pulse Resp BP Pulse Ox 05/26/21 05:43 36.9 C 92 21 136/75 H 97 Intake & Output: Intake & Output 05/23/21 05/24/21 05/25/21 05/26/21 23:59 23:59 23:59 23:59 Intake Total 2190.000 5851.667 1431.667 Output Total 1575 2175 475 Balance 727.507 1524.667 956.667 - Lab Results Fish Bones: 05/26/21 05:45 05/26/21 05:45 Other Labs: Lab Results x24hrs 05/26/21 05/26/21 05/26/21 Range/Units 05:53 05:45 05:45 WBC 10.2 (4.8-10.8) x10^3/uL RBC 1.99 L (4.70-6.10) 10^6/uL Hgb 7.7 L (14.0-18.0) g/dL Hct 22.5 L (42.0-52.0) % MCV 113.1 H (80.0-94.0) fL MCH 38.7 H (27.0-31.0) pg MCHC 34.2 (32.0-36.0) g/dL RDW 17.0 H (12.0-15.0) % Plt Count 250 (130-450) 10^3/uL MPV 10.7 (7.4-11.4) fL Neut # (Auto) 8.6 H (1.5-6.6) 10^3/uL Lymph # (Auto) 0.6 L (1.5-3.5) 10^3/uL Branch # (Auto) 0.7 (0.0-1.0) 10^3/uL Eos # (Auto) 0.0 (0.0-0.7) 10^3/uL Baso # (Auto) 0.1 (0.0-0.1) 10^3/uL Absolute Nucleated RBC 0.00 x10^3/uL Nucleated RBC % 0.0 /100WBC Manual Slide Review Indicated Platelet Estimate NORMAL (130-450,000) (NORMAL) Platelet Morphology NORMAL APPEARANCE (NORMAL) RBC Morph Micro Appear 2+ MACROCYTOSIS (NORMAL) VBG pH (7.31-7.41) Ionized Calcium (1.15-1.33) mmol/L Sodium 137 (135-145) mmol/L Potassium 3.3 L (3.5-5.0) mmol/L Chloride 100 L (101-111) mmol/L Carbon Dioxide 26 (21-32) mmol/L Anion Gap 11.0 (6-13) BUN 30 H (6-20) mg/dL Creatinine 1.1 (0.6-1.2) mg/dL Estimated GFR (MDRD) 68 L (>89) Glucose 122 H (70-100) mg/dL POC Whole Bld Glucose 111 H (70 - 100) mg/dL Calcium 8.1 L (8.5-10.3) mg/dL Phosphorus 2.5 (2.5-4.6) mg/dL Magnesium 1.2 L (1.7-2.8) mg/dL Iron (45-182) ug/dL TIBC (250-450) ug/dL % Saturation (20-50) % Transferrin (180-329) mg/dL Ferritin (23.9-336.2) ng/mL TSH (0.34-5.60) uIU/mL 05/25/21 05/25/21 05/25/21 Range/Units 23:19 18:25 18:25 WBC (4.8-10.8) x10^3/uL RBC (4.70-6.10) 10^6/uL Hgb (14.0-18.0) g/dL Hct (42.0-52.0) % MCV (80.0-94.0) fL MCH (27.0-31.0) pg MCHC (32.0-36.0) g/dL RDW (12.0-15.0) % Plt Count (130-450) 10^3/uL MPV (7.4-11.4) fL Neut # (Auto) (1.5-6.6) 10^3/uL Lymph # (Auto) (1.5-3.5) 10^3/uL Branch # (Auto) (0.0-1.0) 10^3/uL Eos # (Auto) (0.0-0.7) 10^3/uL Baso # (Auto) (0.0-0.1) 10^3/uL Absolute Nucleated RBC x10^3/uL Nucleated RBC % /100WBC Manual Slide Review Platelet Estimate (NORMAL) Platelet Morphology (NORMAL) RBC Morph Micro Appear (NORMAL) VBG pH 7.465 H (7.31-7.41) Ionized Calcium 1.13 L (1.15-1.33) mmol/L Sodium (135-145) mmol/L Potassium 4.0 (3.5-5.0) mmol/L Chloride (101-111) mmol/L Carbon Dioxide (21-32) mmol/L Anion Gap (6-13) BUN (6-20) mg/dL Creatinine (0.6-1.2) mg/dL Estimated GFR (MDRD) (>89) Glucose (70-100) mg/dL POC Whole Bld Glucose 131 H (70 - 100) mg/dL Calcium (8.5-10.3) mg/dL Phosphorus (2.5-4.6) mg/dL Magnesium (1.7-2.8) mg/dL Iron (45-182) ug/dL TIBC (250-450) ug/dL % Saturation (20-50) % Transferrin (180-329) mg/dL Ferritin (23.9-336.2) ng/mL TSH (0.34-5.60) uIU/mL 05/25/21 05/25/21 05/25/21 Range/Units 14:05 14:05 07:50 WBC (4.8-10.8) x10^3/uL RBC (4.70-6.10) 10^6/uL Hgb 8.8 L (14.0-18.0) g/dL Hct 24.7 L (42.0-52.0) % MCV (80.0-94.0) fL MCH (27.0-31.0) pg MCHC (32.0-36.0) g/dL RDW (12.0-15.0) % Plt Count (130-450) 10^3/uL MPV (7.4-11.4) fL Neut # (Auto) (1.5-6.6) 10^3/uL Lymph # (Auto) (1.5-3.5) 10^3/uL Branch # (Auto) (0.0-1.0) 10^3/uL Eos # (Auto) (0.0-0.7) 10^3/uL Baso # (Auto) (0.0-0.1) 10^3/uL Absolute Nucleated RBC x10^3/uL Nucleated RBC % /100WBC Manual Slide Review Platelet Estimate (NORMAL) Platelet Morphology (NORMAL) RBC Morph Micro Appear (NORMAL) VBG pH (7.31-7.41) Ionized Calcium (1.15-1.33) mmol/L Sodium (135-145) mmol/L Potassium 3.5 (3.5-5.0) mmol/L Chloride (101-111) mmol/L Carbon Dioxide (21-32) mmol/L Anion Gap (6-13) BUN (6-20) mg/dL Creatinine (0.6-1.2) mg/dL Estimated GFR (MDRD) (>89) Glucose (70-100) mg/dL POC Whole Bld Glucose (70 - 100) mg/dL Calcium (8.5-10.3) mg/dL Phosphorus (2.5-4.6) mg/dL Magnesium (1.7-2.8) mg/dL Iron (45-182) ug/dL TIBC (250-450) ug/dL % Saturation (20-50) % Transferrin (180-329) mg/dL Ferritin 3144.0 H (23.9-336.2) ng/mL TSH 2.57 (0.34-5.60) uIU/mL 05/25/21 05/25/21 Range/Units 07:50 07:50 WBC (4.8-10.8) x10^3/uL RBC (4.70-6.10) 10^6/uL Hgb (14.0-18.0) g/dL Hct (42.0-52.0) % MCV (80.0-94.0) fL MCH (27.0-31.0) pg MCHC (32.0-36.0) g/dL RDW (12.0-15.0) % Plt Count (130-450) 10^3/uL MPV (7.4-11.4) fL Neut # (Auto) (1.5-6.6) 10^3/uL Lymph # (Auto) (1.5-3.5) 10^3/uL Branch # (Auto) (0.0-1.0) 10^3/uL Eos # (Auto) (0.0-0.7) 10^3/uL Baso # (Auto) (0.0-0.1) 10^3/uL Absolute Nucleated RBC x10^3/uL Nucleated RBC % /100WBC Manual Slide Review Platelet Estimate (NORMAL) Platelet Morphology (NORMAL) RBC Morph Micro Appear (NORMAL) VBG pH 7.467 H (7.31-7.41) Ionized Calcium 1.04 L (1.15-1.33) mmol/L Sodium (135-145) mmol/L Potassium (3.5-5.0) mmol/L Chloride (101-111) mmol/L Carbon Dioxide (21-32) mmol/L Anion Gap (6-13) BUN (6-20) mg/dL Creatinine (0.6-1.2) mg/dL Estimated GFR (MDRD) (>89) Glucose (70-100) mg/dL POC Whole Bld Glucose (70 - 100) mg/dL Calcium (8.5-10.3) mg/dL Phosphorus (2.5-4.6) mg/dL Magnesium (1.7-2.8) mg/dL Iron 13 L (45-182) ug/dL TIBC 112 L (250-450) ug/dL % Saturation 12 L (20-50) % Transferrin 80 L (180-329) mg/dL Ferritin (23.9-336.2) ng/mL TSH (0.34-5.60) uIU/mL Assessment/Plan - Problem List (3) Pancreatitis Qualifiers: Chronicity: acute Pancreatitis type: unspecified pancreatitis type Acute pancreatitis complication: unspecified Qualified Code(s): K85.90 - Acute pancreatitis without necrosis or infection, unspecified
[2021-05-26] MEDS ORDERED: POTASSIUM CHLORIDE 20 MEQ TABLET PO ONE (08:00)
[2021-05-26] MEDS ORDERED: MAGNESIUM SULFATE 2 GRAM 2 GM/50 ML BAG IV ONE (08:00)
[2021-05-26] MEDS ORDERED: MAGNESIUM OXIDE 400 MG TABLET PO SCH (08:00)
[2021-05-26 08:06] LABS: ABSOLUTE RETICS # AUTO 0.047 10^6/uL (0.020-0.110); RED BLOOD COUNT 1.92 10^6/uL (4.70-6.10); RETICULOCYTE COUNT % (AUTO) 2.43 % (0.5-2.3)
[2021-05-26 08:50] VITALS: BP 140/73
[2021-05-26] MEDS: HEPARIN 5,000 UNIT/ML VIAL SUBQ SCH (10:01)
[2021-05-26] MEDS: SODIUM CHLORIDE FLUSH 0.9% 10 ML SYRINGE IVP SCH (10:02)
--- NOTE | 2021-05-26 11:21 | Discharge Plan ---
Discharge Plan Problem Reviewed?: Yes Disposition: Against Medical Advice Health Concerns: You were admitted to the hospital because of acute renal failure due to dehydration from your diarrhea. You also have found to have pancreatitis. You treated with IV fluids and your renal function has returned to baseline. It was noted during the state that your blood counts had decreased. The cause of this is not clear but there has been no obvious evidence of bleeding. We would like to monitor you further given your blood counts are continuing to decrease but you have chosen to leave AGAINST MEDICAL ADVICE and to go home. Please follow-up with your primary care patient to have blood work done next week to make sure your blood counts as well as your potassium and magnesium are stable. You may need an evaluation by reservoir engineering consultant. You may take 400 mg of magnesium daily and 10 mEq of potassium daily for supplementation. Please return to the emergency department if you notice any evidence of bleeding, develop lightheadedness or you pass out. No Smoking: If you smoke, Please STOP! Call for help. Follow-up with: Kentrell Gonzales MD [Primary Care Provider] -
--- NOTE | 2021-05-26 11:24 | DISCHARGE SUMMARY ---
Discharge Summary Admit Date: 05/24/21 Discharge Date: 05/26/21 Discharging Provider: Leon Calabrese Primary Care Provider: Kentrell Gonzales Code Status: Do Not Attempt Resuscitation Condition at Discharge: Fair Discharge Disposition: Against Medical Advice - DIAGNOSES Admission Diagnoses: Acute kidney injury Diarrhea Pancreatitis Hypokalemia Hyponatremia Leukocytosis Right renal mass Discharge Diagnoses with Status of Each Condition: Acute kidney injury - resolved. Diarrhea - resolved. Pancreatitis - ongoing. Hypokalemia - ongoing. Hyponatremia - resolved Hypomagnesemia - ongoing. Leukocytosis - resolved. Microcytic anemia - ongoing. Right renal mass - ongoing. - HPI History of Present Illness: This is a 60-year-old male with a past medical history significant for hypertension and gout who presents today complaining of diarrhea and abnormal labs. He states he has had diarrhea now for the past month. He reports having anywhere from 3-10 bowel movements a day. He has not had a formed stool all month and it is predominantly liquid and quite foul-smelling. He denies any recent antibiotic use or travel. He denies a change in his diet. He does report abdominal pain that began about 1 week ago and is predominantly in the lower abdomen and radiates at times into his groin. He does report associated nausea and vomiting but he has not vomited in the past 2 days. Reports no fevers or chills. Denies chest pain, dyspnea, dysuria, urgency, hematuria. He reports having a right renal mass for which she is followed by urology at the [facility]. He states the plan had been to monitor the mass but most recent imaging shows that it has changed in size and he was reportedly sent to his primary care physician yesterday for labs which revealed the renal failure and hypokalemia. Here in our emergency department, he is noted to be afebrile with a heart rate in the 90s. He is normotensive. He is not tachypneic and saturating well on room air. Labs are significant for a white count of 19.8 with a left shift. His sodium is 130, potassium 2.1, chloride 80. His BUN is 102 and his creatinine is 4.5. Lactic acid is within normal limits. His lipase is 61. Urinalysis showed bacteria but no leukocyte esterase or nitrites and no pyuria. CT of the abdomen pelvis without contrast was suggestive of acute pancreatitis with a fluid collection suggestive of pseudocyst formation. There was also questionable colitis on CT. There is no evidence of obstruction or hydronephrosis. Given the above findings, medicine was consulted for admission. I did discuss goals of care with the patient and he would like to be a DNR. - HOSPITAL COURSE Hospital Course: The patient was admitted to the intensive care unit for acute renal failure secondary to dehydration. He also had severe hypokalemia with a potassium of 2.1. A central line was placed for aggressive IV hydration electrolyte replacement. His renal function improved on a daily basis and is back to baseline on the day he left AGAINST MEDICAL ADVICE. His potassium has also improved although remains low at 3.3. He was tested for C. difficile and this came back negative. Stool cultures were ordered and are pending. There was concern for pancreatitis given his CT showed peripancreatic edema with a pseudocyst and he had abdominal pain. Interestingly, his lipase and amylase were both within normal limits. He was treated with IV fluids and pain control. He was started on a clear liquid diet which was advanced to a full liquid diet on the day he left AGAINST MEDICAL ADVICE. His stay, it was noted his hemoglobin decreased from 10.9 on day of admission to 8.7 the following day. This was felt to be dilutional but iron studies were ordered as well as B12 and folate. His folate and B12 were within normal limits. Iron was decreased at thirteen but his TIBC was also low at 112 and percent saturation at 12 as well as his transferrin at 80. Ferritin was noted to be quite elevated at 3144. It was felt this was likely due to anemia of chronic disease and that the ferritin was significantly elevated due to it being an acute phase reactant. We did check his stool for occult blood but this was negative. I have recommended the patient remain hospitalized for further work-up of his anemia given the following day it decreased to 7.7. The patient ultimately decided to leave AGAINST MEDICAL ADVICE despite discussing the risks and benefits. I informed him that I would like to keep him hospitalized to further work-up his anemia and ensure there is no obvious bleeding that has not yet been detected. He stated there is nothing we can do to convince him to stay and that he was tired of the hospital bed and that he is wants to go back home to his home environment. I did ask him to follow-up with his primary care provider and he states he will see them early next week and will have lab draws during that visit. He also states he will take potassium and magnesium supplementation. I did ask him to discuss with his primary care physician regarding discontinuing the allopurinol as this can cause a macrocytic anemia. I also encouraged him to follow-up with a plate setter. I asked him to return to emergency department if he develops a ny evidence of bleeding, lightheadedness, syncope. - ALLERGIES Allergies/Adverse Reactions: Allergies Allergy/AdvReac Type Severity Reaction Status Date / Time Opioids - Morphine Analogues AdvReac Itching Verified 05/24/21 11:30 - MEDICATIONS Home Medications: Ambulatory Orders Medication Instructions Recorded Confirmed Lisinopril [Zestril] 40 mg PO DAILY 05/24/21 05/25/21 allopurinoL [Allopurinol] 400 mg PO DAILY 05/24/21 05/25/21 amLODIPine [Norvasc] 5 mg PO DAILY 05/24/21 05/25/21 - PHYSICAL EXAM AT DISCHARGE General Appearance: positive: No acute distress, Alert Eyes Bilateral: positive: Normal inspection, Conjunctivae nml ENT: positive: ENT inspection nml Neck: positive: Nml inspection Respiratory: positive: No respiratory distress. negative: Wheezes, Rales Cardiovascular: positive: Tachycardia. negative: Irregularly irregular, Bradycardia, Systolic murmur Abdomen: positive: No distention, Tenderness (He has epigastric and left lower quadrant tenderness.). negative: Guarding, Rebound Skin: positive: Warm, Dry Extremities: positive: No pedal edema Neurologic/Psychiatric: positive: Motor nml. negative: Disoriented to person, Disoriented to place, Disoriented to time - LABS Result Diagrams: 05/26/21 05:45 05/26/21 05:45 - FOLLOW UP Follow Up: He was asked to follow-up with his primary care provider to ensure that he has labs obtained to make sure his hemoglobin is stable - TIME SPENT Time Spent in Discharge (Minutes): 33
[2021-05-26] MEDS ORDERED: LACTOBACILLUS RHAMNOSUS GG CAPSULE PO SCH (12:00)
== END 2021-05-26 11:50 | disposition left against medical advice (07) | DRG 682 ==
LOC: ED 11:11 → ICU 13:08
PROVIDERS: ADMIT Internal Medicine; ATTEND Internal Medicine
PROC: 02HV33Z Insertion of Infusion Device into Superior Vena Cava, Percutaneous Approach (ICD-10-PCS; principal; 2021-05-24)
DX: N17.9 Acute kidney failure, unspecified (principal); K85.90 Acute pancreatitis without necrosis or infection, unspecified; E87.1 Hypo-osmolality and hyponatremia; R19.7 Diarrhea, unspecified; E87.6 Hypokalemia; Z66 Do not resuscitate; Z87.891 Personal history of nicotine dependence; D72.829 Elevated white blood cell count, unspecified; N28.89 Other specified disorders of kidney and ureter; E83.42 Hypomagnesemia; D50.9 Iron deficiency anemia, unspecified; I10 Essential (primary) hypertension; M10.9 Gout, unspecified; E86.0 Dehydration; Z53.29 Procedure and treatment not carried out because of patient's decision for other reasons; Z20.822 Contact with and (suspected) exposure to COVID-19
CPT/HCPCS: 0202U; 36415; 71045; 74176; 80048; 80053; 80076; 81001; 81599; 82150; 82272; 82330; 82607; 82728; 82746; 83540; 83605; 83690; 83735; 84100; 84132; 84443; 84466; 85014; 85018; 85025; 85045; 86850; 86900; 86901; 87040; 87086; 87150; 87493; 99284; 99285; A9270; J1200; J7040; J7120; 82310; 87045; 87046

== ENCOUNTER 2021-05-31 12:25 | Inpatient (IN) | payer MEDICAID ==
[2021-05-31 13:30] LABS: BASOPHILS % (AUTO) 0.8 %; EOSINOPHILS % (AUTO) 0.2 %; HCT - HEMATOCRIT 23.2 % (42.0-52.0); LYMPHOCYTES % (AUTO) 11.8 %; MEAN CORPUSCULAR HGB CONC 34.5 g/dL (32.0-36.0); MEAN CORPUSCULAR VOLUME 113.2 fL (80.0-94.0); MEAN PLATELET VOLUME 9.4 fL (7.4-11.4); MONOCYTES % (AUTO) 13.6 %; NEUTROPHILS % (AUTO) 70.7 %; PLT - PLATELET COUNT 570 10^3/uL (130-450); RED BLOOD COUNT 2.05 10^6/uL (4.70-6.10); WHITE BLOOD COUNT 12.9 x10^3/uL (4.8-10.8)
[2021-05-31 13:32] LABS: SLIDE REVIEW? Indicated
[2021-05-31 13:44] LABS: ALBUMIN 2.1 g/dL (3.2-5.5); ALBUMIN/GLOBULIN RATIO 0.5 (1.0-2.2); BILIRUBIN,TOTAL 0.8 mg/dL (0.2-1.0); CALCIUM 8.2 mg/dL (8.5-10.3); CREATININE 0.7 mg/dL (0.6-1.2); MAGNESIUM 1.6 mg/dL (1.7-2.8); PHOSPHORUS 2.6 mg/dL (2.5-4.6); TOTAL PROTEIN 6.7 g/dL (6.7-8.2)
--- NOTE | 2021-05-31 13:50 | ED Physician Documentation ---
History of Present Illness - Stated complaint Stated Complaint: STOMACH PX - Chief complaint Chief Complaint: Abd Pain - History obtained from History obtained from: Patient - History of Present Illness Timing: How many weeks ago (2) Pain level max: 8 Pain level now: 5 - Additonal information Additional information: Patient is a 60-year-old male who presents to the emergency department with abdominal pain ongoing for the past several weeks. Was seen here recently admitted for pancreatitis, multiple electrolyte abnormalities and anemia. He signed out AMA, and has been at home for the past several days. He states he began to feel worse again with worsening abdominal pain. Worse with movement, palpation, eating and drinking. He has a known renal mass that he has been followed by the [facility] for. No fevers. No chills. Nothing makes it better Review of Systems Constitutional: denies: Fever, Chills Throat: denies: Sore throat Cardiac: denies: Chest pain / pressure, Palpitations Respiratory: denies: Cough GI: reports: Abdominal Pain (LLQ abd pain), Diarrhea. denies: Vomiting PD PAST MEDICAL HISTORY - Past Medical History Cardiovascular: None Respiratory: None Neuro: Other Endocrine/Autoimmune: None GI: Other : None Musculoskeletal: Osteoarthritis, Gout Derm: None - Past Surgical History Past Surgical History: No HEENT: Tonsil/Adenoidectomy - Present Medications Home Medications: Ambulatory Orders Medication Instructions Recorded Confirmed Lisinopril [Zestril] 40 mg PO DAILY 05/24/21 05/25/21 allopurinoL [Allopurinol] 400 mg PO DAILY 05/24/21 05/25/21 amLODIPine [Norvasc] 5 mg PO DAILY 05/24/21 05/25/21 - Allergies Allergies/Adverse Reactions: Allergies Allergy/AdvReac Type Severity Reaction Status Date / Time Opioids - Morphine Analogues AdvReac Itching Verified 05/31/21 12:40 - Social History Does the pt smoke?: No Smoking Status: Never smoker Does the pt drink ETOH?: Yes Does the pt have substance abuse?: No - Immunizations Immunizations are current?: No - POLST Patient has POLST: No PD ED PE NORMAL - Vitals Vital signs reviewed: Yes - General General: Alert and oriented X 3, No acute distress - HEENT HEENT: Other (dry lips and tongue) - Neck Neck: Supple, no meningeal sign - Cardiac Cardiac: RRR - Respiratory Respiratory: No respiratory distress, Clear bilaterally - Abdomen Abdomen: Soft, Non distended, Other (Mild diffuse tenderness to palpation without peritoneal signs) - Back Back: No CVA TTP, No spinal TTP - Derm Derm: Warm and dry - Extremities Extremities: No edema - Neuro Neuro: Alert and oriented X 3 - Psych Psych: Normal mood, Normal affect Results - Vitals Vitals: Vital Signs - 24 hr 05/31/21 05/31/21 12:40 15:01 Temperature 37 C Heart Rate 114 H 108 H Respiratory 20 18 Rate Blood Pressure 99/62 107/65 O2 Saturation 99 100 Oxygen O2 Source Room air - Labs Labs: Laboratory Tests 05/31/21 05/31/21 05/31/21 13:10 13:10 13:10 WBC 12.9 H RBC 2.05 L Hgb 8.0 L Hct 23.2 L MCV 113.2 H MCH 39.0 H MCHC 34.5 RDW 16.0 H Plt Count 570 H MPV 9.4 Neut # (Auto) Not Reportable Lymph # (Auto) Not Reportable Harris # (Auto) Not Reportable Eos # (Auto) Not Reportable Baso # (Auto) Not Reportable Absolute Nucleated RBC Not Reportable Total Counted 100 Band Neuts % (Manual) 1 Abnorm Lymph % (Manual) 0 Metamyelocytes % 1 H Nucleated RBC % Not Reportable Neutrophils # (Manual) 8.9 H Lymphocytes # (Manual) 2.3 Monocytes # (Manual) 1.4 H Eosinophils # (Manual) 0.1 Basophils # (Manual) 0.0 Differential Comment MANUAL DIFFERENTIAL Manual Slide Review Indicated WBC Morphology NORMAL RHINA Platelet Estimate INCREASED (>450,000) Platelet Morphology NORMAL RHINA RBC Morph Micro Appear 1+ POLYCHROMASIA PT INR APTT Sodium 136 Potassium 3.0 L Chloride 97 L Carbon Dioxide 19 L Anion Gap 20.0 H BUN 7 Creatinine 0.7 Estimated GFR (MDRD) 114 Glucose 108 H Calcium 8.2 L Phosphorus 2.6 Magnesium 1.6 L Total Bilirubin 0.8 AST 105 H ALT 42 Alkaline Phosphatase 105 Total Protein 6.7 Albumin 2.1 L Globulin 4.6 H Albumin/Globulin Ratio 0.5 L Amylase Lipase 49 Urine Color Urine Clarity Urine pH Ur Specific [place] Urine Protein Urine Glucose (UA) Urine Ketones Urine Occult Blood Urine Nitrite Urine Bilirubin Urine Urobilinogen Ur Leukocyte Esterase Ur Microscopic Review Urine Culture Comments Ethyl Alcohol Blood Type O POSITIVE Antibody Screen NEGATIVE 05/31/21 05/31/21 05/31/21 13:10 13:55 14:48 WBC RBC Hgb Hct MCV MCH MCHC RDW Plt Count MPV Neut # (Auto) Lymph # (Auto) Harris # (Auto) Eos # (Auto) Baso # (Auto) Absolute Nucleated RBC Total Counted Band Neuts % (Manual) Abnorm Lymph % (Manual) Metamyelocytes % Nucleated RBC % Neutrophils # (Manual) Lymphocytes # (Manual) Monocytes # (Manual) Eosinophils # (Manual) Basophils # (Manual) Differential Comment Manual Slide Review WBC Morphology Platelet Estimate Platelet Morphology RBC Morph Micro Appear PT 14.1 H INR 1.3 H APTT 23.7 L Sodium Potassium Chloride Carbon Dioxide Anion Gap BUN Creatinine Estimated GFR (MDRD) Glucose Calcium Phosphorus Magnesium Total Bilirubin AST ALT Alkaline Phosphatase Total Protein Albumin Globulin Albumin/Globulin Ratio Amylase 38 Lipase Urine Color YELLOW Urine Clarity CLEAR Urine pH 6.0 Ur Specific [place] <=1.005 Urine Protein NEGATIVE Urine Glucose (UA) NEGATIVE Urine Ketones NEGATIVE Urine Occult Blood NEGATIVE Urine Nitrite NEGATIVE Urine Bilirubin NEGATIVE Urine Urobilinogen 0.2 (NORMAL) Ur Leukocyte Esterase NEGATIVE Ur Microscopic Review NOT INDICATED Urine Culture Comments NOT INDICATED Ethyl Alcohol 200.2 Blood Type Antibody Screen - Rads (name of study) CT abd/pelvis Radiology: Final report received, EMP read contemporaneously, See rad report PD MEDICAL DECISION MAKING - ED course Complexity details: reviewed results, re-evaluated patient, considered differential, d/w patient, d/w financial services education consultant ED course: Patient is a 60-year-old male, longstanding history of alcoholism presents to the emergency department worsening pancreatitis. Does not have evidence of secondary infection. No fevers. Blood cultures were drawn but antibiotics held. No vomiting. Pain well controlled. Will keep n.p.o., placed on IV fluids and admit for further care. Discussed the case with Dr. Hillman, hospitalist accepts This document was made in part using voice recognition software. While efforts are made to proofread this document, sound alike and grammatical errors may occur. Would likely benefit from daily pancreatic enzymes as well as his pancreatic insufficiency is likely causing his chronic diarrhea. IMPRESSION: 1. Interval worsening of previous appearance of pancreatitis with enlarging adjacent fluid collections consistent with pseudocyst formation. In addition, there is more heterogeneous low attenuation appearance of the pancreas parenchyma with decreased enhancement on current exam suspicious for developing necrotizing pancreatitis. 2. Hepatic steatosis. 3. Right renal mass most suggestive of malignancy. Departure - Departure Disposition: 64 [facility] DC/Xfer Clinical Impression: Alcoholism, Pancreatic insufficiency Pancreatitis Qualifiers: Chronicity: acute Pancreatitis type: unspecified pancreatitis type Acute pancreatitis complication: unspecified Qualified Code(s): K85.90 - Acute pancreatitis without necrosis or infection, unspecified Leukocytosis Qualifiers: Leukocytosis type: unspecified Qualified Code(s): D72.829 - Elevated white blood cell count, unspecified Diarrhea Qualifiers: Diarrhea type: unspecified type Qualified Code(s): R19.7 - Diarrhea, unspecified Condition: Stable Discharge Date/Time: 05/31/21 16:52
[2021-05-31 13:51] LABS: ABNORMAL LYMPHS % (MANUAL) 0 %
[2021-05-31 13:54] LABS: BAND NEUTROPHILS % (MANUAL) 1 %; EOSINOPHILS # (MANUAL) 0.1 10^3/uL (0-0.7); LYMPHOCYTES # (MANUAL) 2.3 10^3/uL (1.5-3.5); LYMPHOCYTES % (MANUAL) 18 %; METAMYELOCYTES % (MANUAL) 1 %; MONOCYTES # (MANUAL) 1.4 10^3/uL (0.0-1.0); NEUTROPHILS # (MANUAL) 8.9 10^3/uL (1.5-6.6)
[2021-05-31 13:57] LABS: PLATELET ESTIMATE, MANUAL INCREASED (>450,000) (NORMAL); PLATELET MORPHOLOGY NORMAL APP (NORMAL); WBC MORPHOLOGY (MULTIPLE) NORMAL APP (NORMAL)
[2021-05-31 13:58] LABS: DIFFERENTIAL COMMENT MANUAL DIFFERENTIAL
[2021-05-31 14:03] LABS: ETOH - ETHANOL 200.2 mg/dL
[2021-05-31] MEDS ORDERED: IOPAMIDOL-300 100 ML VIAL ONE (14:05)
[2021-05-31] MEDS ORDERED: SODIUM CHLORIDE 0.9% 1,000 ML IV STA ×3 (14:07→15:37)
[2021-05-31] MEDS ORDERED: oxyCODONE 5 MG TABLET PO STA (14:07)
[2021-05-31 14:08] LABS: INR 1.3 (0.8-1.2); PT - PROTHROMBIN TIME 14.1 secs (9.9-12.6)
[2021-05-31 14:15] LABS: PARTIAL THROMBOPLASTIN TIME 23.7 secs (24.9-33.3)
[2021-05-31] MEDS ORDERED: IOPAMIDOL-300 100 ML VIAL IVP ONE (14:40)
[2021-05-31 15:15] LABS: BILIRUBIN,URINE NEGATIVE (NEGATIVE); GLUCOSE, URINE (UA) NEGATIVE (NEGATIVE); KETONES,URINE (UA) NEGATIVE (NEGATIVE); LEUKOCYTE ESTERASE, URINE NEGATIVE (NEGATIVE); NITRITE,URINE NEGATIVE (NEGATIVE); OCCULT BLOOD,URINE NEGATIVE (NEGATIVE); PROTEIN,URINE NEGATIVE (NEGATIVE); UROBILINOGEN,URINE 0.2 (NORMAL) E.U./dL (NORMAL)
[2021-05-31 15:17] LABS: CLARITY,URINE CLEAR (CLEAR)
--- NOTE | 2021-05-31 15:29 | CT Report ---
PROCEDURE: Abdomen/Pelvis W INDICATIONS: diffuse abd pain CONTRAST: IV CONTRAST: Isovue 300 ml: 100 PO CONTRAST: *NO PO CONTRAST TECHNIQUE: After the administration of oral and IV contrast, 5 mm thick sections acquired from the diaphragms to the symphysis. 5 mm thick coronal and sagittal reformats were acquired. For radiation dose reducti on, the following was used: automated exposure control, adjustment of mA and/or kV according to derek ent size. COMPARISON: CT abdomen pelvis 05/24/2021 FINDINGS: Image quality: Excellent. ABDOMEN: Lung bases: Lung bases are clear. Heart size is normal. Solid organs: Liver demonstrates steatosis. Spleen is unremarkable. Gallbladder is unremarkable Orion iary system is non dilated. No adrenal nodules. There is a punctate nonobstructing left renal calculu s. In addition, heterogeneously enhancing in ureter right lower pole renal mass is identified measuri ng 4.1 x 3.2 cm, much better visualized on current exam with presence of contrast. As identified on prior exam, the pancreas is atrophic. In addition, there has been progression of pre vious heterogeneous parenchymal attenuation appearing overall more diffusely low attenuation and decr eased enhancement particularly within the pancreatic distal body and tail. The complex fluid collecti ons identified at the region of the pancreatic tail as well as anterior to the body and head remain p resent and have enlarged compared to prior exam. Portions of the fluid collection particularly along the pancreatic tail have also extended to the paracolic gutter and deep left pelvic sidewall compared to prior exam. Peritoneum and bowel: Bowel loops demonstrate normal wall thickness and caliber. Nodes and vessels: No retroperitoneal or mesenteric adenopathy by size criteria. Aorta and inferior vena cava are normal in size. Miscellaneous: No ventral hernias. PELVIS: Genitourinary: Bladder wall thickness is normal. Miscellaneous: No inguinal hernias or adenopathy. Bones: No suspicious bony lesions. No vertebral body compression fractures. IMPRESSION: 1. Interval worsening of previous appearance of pancreatitis with enlarging adjacent fluid collection s consistent with pseudocyst formation. In addition, there is more heterogeneous low attenuation appe arance of the pancreas parenchyma with decreased enhancement on current exam suspicious for developin g necrotizing pancreatitis. 2. Hepatic steatosis. 3. Right renal mass most suggestive of malignancy. Reviewed by: Marily Narayan MD on 05/31/2021 3:28 PM PDT Approved by: Marily Narayan MD on 05/31/2021 3:28 PM PDT Station ID: [id number]
[2021-05-31] MEDS ORDERED: PANTOPRAZOLE 40 MG VIAL IVP STA (15:43)
[2021-05-31] MEDS ORDERED: SODIUM CHLORIDE FLUSH 0.9% 10 ML SYRINGE IVP PRN (15:53)
[2021-05-31] MEDS ORDERED: ONDANSETRON 4 MG/2 ML VIAL IVP PRN (15:53)
--- NOTE | 2021-05-31 15:53 | HISTORY & PHYSICAL EXAMINATION ---
Chief Complaint - Chief Complaint Chief Complaint: abdominal pain, continues to drink ETOH History of Present Illness - Admitted From Admitted From:: ED (from home) - History Obtained From Records Reviewed: ED, prior records History obtained from: Dr Elder, patient - History of Present Illness HPI Comment/Other: PCP Dr Kentrell Gonzales Per ED; patient known to service, was just dc/d last week 05/26 for alcoholic pancreatitis, left AMA, continued to drink since discharge with worsening adominal /epigastric pain. BAL 200 today On presentation; VS notable for modestly elevated HR 108, 114, BP 99/62, 107/65, no hypoxia 99-100 % on RA, Afebrile Labs notable for; Modest leukocytosis 12.9 1% bands ( was 19.8 on 05/24 admit; 10.2 on 05/26 discharge); hypokalemia K 3.0 (was 3.3 on discharge ) Anion gap acidosis w/ C02 19, AG 20, BUN/CR normal at 7/0.7. (was 30/1.1 05/25, Cr 5.7 on 05/23 admit) BAL 200 AST ALT 105/42. Lipase and amylase not elevated ( likely chronic pancreatitis; lipase has not been elevated w/ 05/24 admit despite clear pancreatic inflammation on CT ) Ua negative/ unremarkable Corresponding CTAbdomen today worse than last week with increasing pseudocysts and evident necrosis,no gas CT detail; Atrophic pancreas . Interval worsening of previous appearance of pancreatitis w/ enlarging adjacent fluid collections c/w pseudocyst formation enlarged compared w/ prior exam. . Also more heterogeneouslow attenuation appear ance of pancreas parenchyma w/ decreased enhancement suspicious for developing necrotizing pancreatitis gabriel distal body and tail. Portions of the fluid collection gabriel along pancreatic tail extended to paracolic gutter and deep left pelvic sidewall c/w prior exam late april. Per patient/and review of recent H/P and AMA discharge 60 year old male who was an inpatient from 05/24 - 05/25; presented at that time with primary complaint of ~ 1 month diarrhea,lower abdominal pain that raiated to groin with nausea and voting but no emesis x 2 days prior. No fever, chills or other new symptoms He was hemodynamically stable , but with leukocytosis WBC of 19.8 and a left shift. Abdominal CT w/ pancreatic inflammaton and pseudocysts (though with lower abdominal pain and ? colitis on CT) and DELIO.BUN / Cr 104/4.5 and significant hypokalemia He reported "Diarrhea" x 1 month reported 3-10 BM's / day, unformed, loose floating and foul smelling and had already seen PCP re: the diarrhea. Denies change in diet. . Stool negative for Cdif last week. Managed conservatively w/ IVF but in the ICU due to significatn hypkalemia K 2.1, and required a central line. Renal fxn improved, however, with volume repletion anemia more pronounced. Hgb 8.7 No evident acute bleed, stool negative. Folate, B12 in normal range; FE 13, TIBC 112, % sat 12, transferrin 80 Ferritin 3144 (in setting of acute pancreatitis), Provider; Dr Calabrese recommended stay for further eval of anemia but patient declined to stay for furhter eval of the anemia. He chose to leave AMA on 05/26. 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 " Has little insight into the severeity of his pancreatic inflammation r/t ETOH. Denies binging. "I just drink vodka and water , "not even 4/day". On return home; patient continued to drink. His abdominal pain has not improved since d/c 5 days ago on 05/26. He drinks vodka with water, very unclear how much he drinks, but reports he just lives his life which is great bc he's retired, I dont drive and I'm retired so I drink. History - Past Medical History Cardiovascular: reports: None Respiratory: reports: None Neuro: reports: Other Endocrine/Autoimmune: reports: None GI: reports: Other : reports: None Musculoskeletal: reports: Osteoarthritis, Gout Derm: reports: None MRSA Hx?: No - Past Surgical History HEENT: reports: Tonsil/Adenoidectomy - Family & Social History Family History Comment/Other: Reports his mother had a history of breast cancer. He does not know his father's side of the family. Denies any other significant family. Living Situation: With family Social History Notes: He lives at home with his mother who is in her 80s. heavy history of daily lcohol use for about 20 to 30 years up until the 1999. Graduated from [employer], worked in dept of [employer]. was too busy to drink at best working yrs (x weekends Fridays would drink a bottle of wine.) He now still drinks alcohol but reports he will drink anywhere from 0 to 5 drinks a week. ETOH form is usually; vodkaand water He reports a prior history of smoking. He will smoke occasional marijuana but denies any other drug use. - Substance History Abuse: Recurrent use of substance despite neg consequences: Alcohol (as above) - POLST Patient has POLST: No Meds/Allgy - Home Medications Home Medications: Ambulatory Orders Medication Instructions Recorded Confirmed Lisinopril [Zestril] 40 mg PO DAILY 05/24/21 06/01/21 allopurinoL [Allopurinol] 400 mg PO DAILY 05/24/21 06/01/21 amLODIPine [Norvasc] 5 mg PO DAILY 05/24/21 06/01/21 - Allergies Allergies/Adverse Reactions: Allergies Allergy/AdvReac Type Severity Reaction Status Date / Time Opioids - Morphine Analogues AdvReac Itching Verified 05/31/21 12:40 Review of Systems - Constitutional Constitutional: reports: Weight loss (20 lbs, mostly due to only loose foul smelling stools x at least 1 month mother having him take shakes, smoohies) - Eyes Eyes: denies: Field loss, Vision loss, Dipolpia - Ears, Nose & Throat Ears, Nose & Throat: denies: Dentures, Sore throat, Dental pain - Cardiovascular Cariovascular: denies: Palpitations, Chest pain, Edema - Respiratory Respiratory: denies: Cough, Sputum production, Wheezing - Gastrointestinal Gastrointestinal: reports: Other (as per HPI) - Genitourinary Genitourinary: denies: Dysuria, Frequency, Urgency - Musculoskeletal Musculoskeletal: reports: Gout (history of; always in r great toe; none in at least a year). denies: Muscle pain, Back pain, Muscle aches, Joint pain - Integumentary Integumentary: reports: Rash - Neurological Neurological: denies: Focal weakness, Headache, Abnormal gait - Psychiatric Psychiatric: reports: Other (says life is great). denies: Depression - Endocrine Endocrine: denies: Polyuria, Polydypsia, Polyphagia - Hematologic/Lymphatic Hematologic/Lymphatic: denies: Bruising, Bleeding tendencies Exam - Vital Signs Reviewed Vital Signs: Yes Vital Signs: Vital Signs x48h Temp Pulse Resp BP Pulse Ox 05/31/21 15:01 108 H 18 107/65 100 05/31/21 12:40 37 C 114 H 20 99/62 99 - Physical Exam General Appearance: positive: No acute distress, Alert, Other (general pallor, nontoxic appearing, very tangential (story telling) bearded man) Eyes Bilateral: positive: Normal inspection, PERRL, No scleral icterus. negative: Conjunctivae nml (conjunctival pallor) Respiratory: positive: Chest non-tender, No respiratory distress, Breath sounds nml, Other (no tachpnea) Cardiovascular: positive: Regular rate & rhythm, Tachycardia (Heart rate 100- 110, BP stable, no peripheral mottling) Abdomen: positive: Other (rounded abdomen, non distended, positive but sl hypoactive BS, no guarding, epigastric tenderness ONLY if firmly palpated, modest tenderness across lower abdomen) Skin: positive: Warm, Dry, Pallor Extremities: negative: Pedal edema Neurologic/Psychiatric: positive: Oriented x3, Mood/affect nml (normal affect, but he is somewhat dismissive re: certain information that is detail about how severe his pancreatitis is) Conclusion/Plan - Problem List (1) Pancreatitis Conclusion/Plan: related to alcohol (Technically this is day 8 of his recent pancreatitis presentation) worse since last CT w/ enlarging pseudocysts, necrosis/ no gas in necrosis hemodynamically stable, non acute abdomen at this time, no hemoconcentration on presentation but at risk for decompensation w/ necrosis; will check CRP blood cx was sent in ED HR low 100's continue aggressive IVF continue supportive care, IVF, NPO x chips, I/O, he prefers PO oxycodone for pain Re necrosis; per uptodate; no correlation between extent of necrosis and risk of infection; infection can occur early in course of necrotizing pancreatitis; more often seen late in clinical course ; after 10 days; most monomicrobial w/ gut derived orgs. Will add ABX if any sign of clinical instability / sepsis/ worse WBC, fever or fail to improve 7-10 days hosp. Qualifiers: Chronicity: acute Pancreatitis type: unspecified pancreatitis type Acute pancreatitis complication: unspecified Qualified Code(s): K85.90 - Acute pancreatitis without necrosis or infection, unspecified (2) Thrombocytosis Conclusion/Plan: 570k, was 250k on 05/26 AMA discarge likely reactive with #1 neccrotic pancreatitis no signs of thrombosis may be sl element of hemoconcentration too prophylactic LMWH recheck in AM after cont'd iVF (3) Pancreatic insufficiency Conclusion/Plan: chronic diarrhea and nonelevated lipase despite severity of pancreatitis argues his pancreas has marked reduction exocrine function Cdif neg last week foul floating stools most c/w pancreatic insufficiency add pancrease on d/c (4) High anion gap metabolic acidosis Conclusion/Plan: nontoxic appearing, not binge driking so doubt ETOH ketoacidosis Cirs criteria of HR, WBC likely r/t pancreatitis rather than infection (lactate not checked, but dont think this is sepsis also had AGA last admit of 20 which quicly recovered, also at DELIO at that time but Delio largely resolved May be mixed SAM with diarrhea/ bicarb losses, starvatio ketosis, recheck in am (5) Anemia of chronic disease Conclusion/Plan: stable values checked last week ferritin 3144 ( in setting of acute pancreatitis; Fe 13 TIBC 112 % sat 12 transferrin 80 no evident blood loss 05/25 occult blood neg (6) Alcoholism Conclusion/Plan: Chronic; BAL 200 on admit Patient loves his life which includes alcohol little motivation to change add Ciwa w/ low dose ativan titrate as needed Add Thiamine/mvi tomorrow if adding some po (7) DNR (do not resuscitate) Conclusion/Plan: "Ryanne had a great awesome life" Confirms wants no resuscitation if cardiopulm arrest (8) Hypokalemia Conclusion/Plan: r/t poor PO intake and chronic diarrhea replete PO and IV as above, likely pancreatic insufficiency cdif neg last week Pancrease on d/c to help mitigate k loss - Lab Results Fish Bones: 06/03/21 05:34 06/03/21 05:34 - Diagnostic Imaging Results Diagnostic Imaging Results: positive: Final report reviewed Diagnostic Imaging Results Comments: 1) Atrophic pancreas . Interval worsening of previous appearance of pancreatitis w/ enlarging adjacent fluid collections c/w pseudocyst formation enlarged compared w/ prior exam. . Also more heterogeneouslow attenuation appearance of pancreas parenchyma w/ decreased enhancement suspicious for developing necrotizing pancreatitis gabriel distal body and tail. Portions of the fluid collection gabriel along pancreatic tail extended to paracolic gutter and deep left pelvic sidewall c/w prior exam late april. 2) hepatic steatosis 3) ? R renal mass, ? malignancy
[2021-05-31] MEDS: SODIUM CHLORIDE FLUSH 0.9% 10 ML SYRINGE IVP SCH (17:43)
[2021-05-31] MEDS: SODIUM CHLORIDE 0.9% 1,000 ML IV SCH (17:43)
[2021-05-31 19:06] LABS: B. PARAPERTUSSIS- RESP PCR PAN NOT DETECTED; B. PERTUSSIS- RESP PCR PANEL NOT DETECTED; C. PNEUMONIAE- RESP PCR PANEL NOT DETECTED; CORONAVIRUS 229E-RESP PCR NOT DETECTED; CORONAVIRUS HKU1-RESP PCR NOT DETECTED; CORONAVIRUS NL63-RESP PCR NOT DETECTED; CORONAVIRUS OC43-RESP PCR NOT DETECTED; HUMAN METAPNEUMOVIRUS NOT DETECTED; INFLUENZA A- RESP PCR PANEL NOT DETECTED; INFLUENZA B - RESP PCR PANEL NOT DETECTED; M. PNEUMONIAE- RESP PCR PANEL NOT DETECTED; PARAINFLUENZA VIRUS 1 NOT DETECTED; PARAINFLUENZA VIRUS 2 NOT DETECTED; PARAINFLUENZA VIRUS 3 NOT DETECTED; PARAINFLUENZA VIRUS 4 NOT DETECTED; RHINOVIRUS/ENTEROVIRUS NOT DETECTED; RSV- RESP PCR PANEL NOT DETECTED; SARS-CoV-2 -RESP PCR PANEL NOT DETECTED
[2021-05-31] MEDS ORDERED: LORazepam 2 MG/ML VIAL IVP PRN (19:11)
[2021-05-31] MEDS ORDERED: POTASSIUM CHLORIDE 20 MEQ TABLET PO SCH (19:18)
[2021-05-31] MEDS: NS W/20 MEQ KCL 1,000 ML IV SCH (20:04)
[2021-05-31] MEDS: POTASSIUM CHLOR 10 MEQ/100 ML 10 MEQ/100 ML BAG IV SCH ×2 (22:51→23:47)
[2021-05-31] MEDS: CARBOXYMETHYLCELLULOSE OPHTH DROPS EACHEYE PRN (23:52)
[2021-06-01] MEDS: ACETAMINOPHEN 500 MG TABLET PO PRN ×4 (00:30→23:42)
[2021-06-01] MEDS: POTASSIUM CHLOR 10 MEQ/100 ML 10 MEQ/100 ML BAG IV SCH ×2 (00:57→02:01)
[2021-06-01] MEDS: CARBOXYMETHYLCELLULOSE OPHTH DROPS EACHEYE PRN ×2 (02:02→17:06)
[2021-06-01] MEDS: SODIUM CHLORIDE FLUSH 0.9% 10 ML SYRINGE IVP SCH ×4 (02:03→23:31)
[2021-06-01] MEDS: NS W/20 MEQ KCL 1,000 ML IV SCH (03:48)
[2021-06-01] MEDS: SODIUM CHLORIDE 0.9% 1,000 ML IV SCH (06:40)
[2021-06-01] MEDS ORDERED: SODIUM CHLORIDE 0.9% 1,000 ML IV SCH (07:12)
--- NOTE | 2021-06-01 07:29 | PROVIDER PROGRESS NOTE ---
Subjective - Prog Note Date Prog Note Date: 06/01/21 Prog Note Time: 07:27 - Subjective Pt reports feeling: No change (re: the increased HR, and fever, doesnt remotely feel like he is withdrawing. wouuld like ice chips) Subjective: feel llike crap Current Medications - Current Medications Current Medications: Active Medications Generic Name Dose Route Start Last Admin Trade Name Freq PRN Reason Stop Dose Admin Acetaminophen 500 mg 05/31/21 23:52 06/01/21 00:30 Acetaminophen 500 Mg Tablet PO 500 mg Q4HR PRN Administration Pain or Fever > 38C (100.4F) Carboxymethylcellulose 1 drops 05/31/21 23:24 06/01/21 02:02 Carboxymethylcellulose Ophth Drops EACHEYE 1 drops PRN PRN Administration Dry Eye Enoxaparin Sodium 40 mg 06/01/21 09:00 Enoxaparin 40 Mg/0.4 Ml Syringe SUBQ DAILY BAYRON Potassium Chloride/Sodium Chloride 1,000 mls @ 125 mls/hr 05/31/21 19:00 06/01/21 03:48 Normal Saline 0.9% W/20 Meq Kcl IV 125 mls/hr .Q8H BAYRON Administration Sodium Chloride 1,000 mls @ 150 mls/hr 06/01/21 07:12 Normal Saline 0.9% IV .Q6H40M BAYRON Meropenem 500 mg/ Sodium 100 mls @ 200 mls/hr 06/01/21 08:00 Chloride IV Q8H BAYRON Lorazepam 1 mg 05/31/21 19:11 Lorazepam 2 Mg/Ml Vial IVP 06/02/21 23:59 Q30M PRN CIWA >8 Protocol Ondansetron HCl 4 mg 05/31/21 15:53 Ondansetron 4 Mg/2 Ml Vial IVP Q6HR PRN Nausea / Vomiting Sodium Chloride 10 ml 05/31/21 15:53 Sodium Chloride Flush 0.9% 10 Ml Syringe IVP PRN PRN NEEDED PER PROVIDER ORDERS Sodium Chloride 10 ml 05/31/21 17:00 06/01/21 02:03 Sodium Chloride Flush 0.9% 10 Ml Syringe IVP Not Given 0100,0900,1700 BAYRON Lisinopril [Zestril] 40 mg PO DAILY 05/24/21 allopurinoL [Allopurinol] 400 mg PO DAILY 05/24/21 amLODIPine [Norvasc] 5 mg PO DAILY 05/24/21 Objective - Vital Signs/Intake & Output Reviewed Vital Signs: Yes Vital Signs: Vital Signs x48h Temp Pulse Resp BP Pulse Ox 06/01/21 05:48 38.3 C H 112 H 27 H 141/72 H 96 05/31/21 23:46 38.3 C H 112 H 27 H 141/72 H 96 developed 38.3 fever last pm ~ 11p and tachycardia to 120's Intake & Output: Intake & Output 05/29/21 05/30/21 05/31/21 06/01/21 23:59 23:59 23:59 23:59 Intake Total 2819.993 1266.667 Balance 2819.993 1266.667 - Objective General Appearance: positive: No acute distress (looks tired, ill today but non toxic, no confusion), Mild distress Eyes Bilateral: negative: Conjunctivae nml (conjunctival pallor) Respiratory: positive: No respiratory distress, Breath sounds nml Cardiovascular: positive: Regular rate & rhythm (rate ~ 120 when examined this am). negative: Systolic murmur Abdomen: positive: No distention. negative: Non-tender (Tender over lower abdomen, slight distension c/w 9/7 . + Bowel sounds, epigastric tenderness only w/ modest palpation (at rest , no epigastric pain)), Guarding, Rebound Skin: positive: Warm, Dry Extremities: negative: Pedal edema Neurologic/Psychiatric: positive: Oriented x3 - Lab Results Fish Bones: 06/02/21 07:36 06/02/21 07:36 Other Labs: Lab Results x24hrs 05/31/21 05/31/21 05/31/21 Range/Units 15:59 14:48 13:55 WBC (4.8-10.8) x10^3/uL RBC (4.70-6.10) 10^6/uL Hgb (14.0-18.0) g/dL Hct (42.0-52.0) % MCV (80.0-94.0) fL MCH (27.0-31.0) pg MCHC (32.0-36.0) g/dL RDW (12.0-15.0) % Plt Count (130-450) 10^3/uL MPV (7.4-11.4) fL Neut # (Auto) Lymph # (Auto) [facility] # (Auto) Eos # (Auto) Baso # (Auto) Absolute Nucleated RBC Total Counted Band Neuts % (Manual) (0 - 10) % Abnorm Lymph % (Manual) % Metamyelocytes % ( - 0) % Nucleated RBC % Neutrophils # (Manual) (1.5-6.6) 10^3/uL Lymphocytes # (Manual) (1.5-3.5) 10^3/uL Monocytes # (Manual) (0.0-1.0) 10^3/uL Eosinophils # (Manual) (0-0.7) 10^3/uL Basophils # (Manual) (0-0.1) 10^3/uL Differential Comment Manual Slide Review WBC Morphology (NORMAL) Platelet Estimate (NORMAL) Platelet Morphology (NORMAL) RBC Morph Micro Appear (NORMAL) PT 14.1 H (9.9-12.6) secs INR 1.3 H (0.8-1.2) APTT 23.7 L (24.9-33.3) secs Sodium (135-145) mmol/L Potassium (3.5-5.0) mmol/L Chloride (101-111) mmol/L Carbon Dioxide (21-32) mmol/L Anion Gap (6-13) BUN (6-20) mg/dL Creatinine (0.6-1.2) mg/dL Estimated GFR (MDRD) (>89) Glucose (70-100) mg/dL Calcium (8.5-10.3) mg/dL Phosphorus (2.5-4.6) mg/dL Magnesium (1.7-2.8) mg/dL Total Bilirubin (0.2-1.0) mg/dL AST (10-42) IU/L ALT (10-60) IU/L Alkaline Phosphatase (42-121) IU/L Total Protein (6.7-8.2) g/dL Albumin (3.2-5.5) g/dL Globulin (2.1-4.2) g/dL Albumin/Globulin Ratio (1.0-2.2) Amylase (28-100) U/L Lipase (22-51) U/L Urine Color YELLOW Urine Clarity CLEAR (CLEAR) Urine pH 6.0 (5.0-7.5) PH Ur Specific [place] <=1.005 (1.002-1.030) Urine Protein NEGATIVE (NEGATIVE) mg/dL Urine Glucose (UA) NEGATIVE (NEGATIVE) mg/dL Urine Ketones NEGATIVE (NEGATIVE) mg/dL Urine Occult Blood NEGATIVE (NEGATIVE) Urine Nitrite NEGATIVE (NEGATIVE) Urine Bilirubin NEGATIVE (NEGATIVE) Urine Urobilinogen 0.2 (NORMAL) (NORMAL) E.U./dL Ur Leukocyte Esterase NEGATIVE (NEGATIVE) Ur Microscopic Review NOT INDICATED Urine Culture Comments NOT INDICATED Nasal Adenovirus (PCR) NOT DETECTED Nasal B. parapertussis DNA (PCR) NOT DETECTED Nasal Coronavir 229E PCR NOT DETECTED Nasal Coronavir HKU1 PCR NOT DETECTED Nasal Coronavir NL63 PCR NOT DETECTED Nasal Coronavir OC43 PCR NOT DETECTED Nasal Enterovir/Rhinovir PCR NOT DETECTED Nasal Influenza B PCR NOT DETECTED Nasal Influenza A PCR NOT DETECTED Nasal Parainfluen 1 PCR NOT DETECTED Nasal Parainfluen 2 PCR NOT DETECTED Nasal Parainfluen 3 PCR NOT DETECTED Nasal Parainfluen 4 PCR NOT DETECTED Nasal RSV (PCR) NOT DETECTED Nasal B.pertussis DNA PCR NOT DETECTED Nasal C.pneumoniae (PCR) NOT DETECTED Benjy Human Metapneumo PCR NOT DETECTED Nasal M.pneumoniae (PCR) NOT DETECTED Nasal SARS-CoV-2 (PCR) NOT DETECTED Ethyl Alcohol mg/dL Blood Type Antibody Screen 05/31/21 05/31/21 05/31/21 Range/Units 13:10 13:10 13:10 WBC (4.8-10.8) x10^3/uL RBC (4.70-6.10) 10^6/uL Hgb (14.0-18.0) g/dL Hct (42.0-52.0) % MCV (80.0-94.0) fL MCH (27.0-31.0) pg MCHC (32.0-36.0) g/dL RDW (12.0-15.0) % Plt Count (130-450) 10^3/uL MPV (7.4-11.4) fL Neut # (Auto) Lymph # (Auto) [facility] # (Auto) Eos # (Auto) Baso # (Auto) Absolute Nucleated RBC Total Counted Band Neuts % (Manual) (0 - 10) % Abnorm Lymph % (Manual) % Metamyelocytes % ( - 0) % Nucleated RBC % Neutrophils # (Manual) (1.5-6.6) 10^3/uL Lymphocytes # (Manual) (1.5-3.5) 10^3/uL Monocytes # (Manual) (0.0-1.0) 10^3/uL Eosinophils # (Manual) (0-0.7) 10^3/uL Basophils # (Manual) (0-0.1) 10^3/uL Differential Comment Manual Slide Review WBC Morphology (NORMAL) Platelet Estimate (NORMAL) Platelet Morphology (NORMAL) RBC Morph Micro Appear (NORMAL) PT (9.9-12.6) secs INR (0.8-1.2) APTT (24.9-33.3) secs Sodium 136 (135-145) mmol/L Potassium 3.0 L (3.5-5.0) mmol/L Chloride 97 L (101-111) mmol/L Carbon Dioxide 19 L (21-32) mmol/L Anion Gap 20.0 H (6-13) BUN 7 (6-20) mg/dL Creatinine 0.7 (0.6-1.2) mg/dL Estimated GFR (MDRD) 114 (>89) Glucose 108 H (70-100) mg/dL Calcium 8.2 L (8.5-10.3) mg/dL Phosphorus 2.6 (2.5-4.6) mg/dL Magnesium 1.6 L (1.7-2.8) mg/dL Total Bilirubin 0.8 (0.2-1.0) mg/dL AST 105 H (10-42) IU/L ALT 42 (10-60) IU/L Alkaline Phosphatase 105 (42-121) IU/L Total Protein 6.7 (6.7-8.2) g/dL Albumin 2.1 L (3.2-5.5) g/dL Globulin 4.6 H (2.1-4.2) g/dL Albumin/Globulin Ratio 0.5 L (1.0-2.2) Amylase 38 (28-100) U/L Lipase 49 (22-51) U/L Urine Color Urine Clarity (CLEAR) Urine pH (5.0-7.5) PH Ur Specific [place] (1.002-1.030) Urine Protein (NEGATIVE) mg/dL Urine Glucose (UA) (NEGATIVE) mg/dL Urine Ketones (NEGATIVE) mg/dL Urine Occult Blood (NEGATIVE) Urine Nitrite (NEGATIVE) Urine Bilirubin (NEGATIVE) Urine Urobilinogen (NORMAL) E.U./dL Ur Leukocyte Esterase (NEGATIVE) Ur Microscopic Review Urine Culture Comments Nasal Adenovirus (PCR) Nasal B. parapertussis DNA (PCR) Nasal Coronavir 229E PCR Nasal Coronavir HKU1 PCR Nasal Coronavir NL63 PCR Nasal Coronavir OC43 PCR Nasal Enterovir/Rhinovir PCR Nasal Influenza B PCR Nasal Influenza A PCR Nasal Parainfluen 1 PCR Nasal Parainfluen 2 PCR Nasal Parainfluen 3 PCR Nasal Parainfluen 4 PCR Nasal RSV (PCR) Nasal B.pertussis DNA PCR Nasal C.pneumoniae (PCR) Benjy Human Metapneumo PCR Nasal M.pneumoniae (PCR) Nasal SARS-CoV-2 (PCR) Ethyl Alcohol 200.2 mg/dL Blood Type O POSITIVE Antibody Screen NEGATIVE 05/31/21 Range/Units 13:10 WBC 12.9 H (4.8-10.8) x10^3/uL RBC 2.05 L (4.70-6.10) 10^6/uL Hgb 8.0 L (14.0-18.0) g/dL Hct 23.2 L (42.0-52.0) % MCV 113.2 H (80.0-94.0) fL MCH 39.0 H (27.0-31.0) pg MCHC 34.5 (32.0-36.0) g/dL RDW 16.0 H (12.0-15.0) % Plt Count 570 H (130-450) 10^3/uL MPV 9.4 (7.4-11.4) fL Neut # (Auto) Not Reportable Lymph # (Auto) Not Reportable [facility] # (Auto) Not Reportable Eos # (Auto) Not Reportable Baso # (Auto) Not Reportable Absolute Nucleated RBC Not Reportable Total Counted 100 Band Neuts % (Manual) 1 (0 - 10) % Abnorm Lymph % (Manual) 0 % Metamyelocytes % 1 H ( - 0) % Nucleated RBC % Not Reportable Neutrophils # (Manual) 8.9 H (1.5-6.6) 10^3/uL Lymphocytes # (Manual) 2.3 (1.5-3.5) 10^3/uL Monocytes # (Manual) 1.4 H (0.0-1.0) 10^3/uL Eosinophils # (Manual) 0.1 (0-0.7) 10^3/uL Basophils # (Manual) 0.0 (0-0.1) 10^3/uL Differential Comment MANUAL DIFFERENTIAL Manual Slide Review Indicated WBC Morphology NORMAL RHINA (NORMAL) Platelet Estimate INCREASED (>450,000) (NORMAL) Platelet Morphology NORMAL RHINA (NORMAL) RBC Morph Micro Appear 1+ POLYCHROMASIA (NORMAL) PT (9.9-12.6) secs INR (0.8-1.2) APTT (24.9-33.3) secs Sodium (135-145) mmol/L Potassium (3.5-5.0) mmol/L Chloride (101-111) mmol/L Carbon Dioxide (21-32) mmol/L Anion Gap (6-13) BUN (6-20) mg/dL Creatinine (0.6-1.2) mg/dL Estimated GFR (MDRD) (>89) Glucose (70-100) mg/dL Calcium (8.5-10.3) mg/dL Phosphorus (2.5-4.6) mg/dL Magnesium (1.7-2.8) mg/dL Total Bilirubin (0.2-1.0) mg/dL AST (10-42) IU/L ALT (10-60) IU/L Alkaline Phosphatase (42-121) IU/L Total Protein (6.7-8.2) g/dL Albumin (3.2-5.5) g/dL Globulin (2.1-4.2) g/dL Albumin/Globulin Ratio (1.0-2.2) Amylase (28-100) U/L Lipase (22-51) U/L Urine Color Urine Clarity (CLEAR) Urine pH (5.0-7.5) PH Ur Specific [place] (1.002-1.030) Urine Protein (NEGATIVE) mg/dL Urine Glucose (UA) (NEGATIVE) mg/dL Urine Ketones (NEGATIVE) mg/dL Urine Occult Blood (NEGATIVE) Urine Nitrite (NEGATIVE) Urine Bilirubin (NEGATIVE) Urine Urobilinogen (NORMAL) E.U./dL Ur Leukocyte Esterase (NEGATIVE) Ur Microscopic Review Urine Culture Comments Nasal Adenovirus (PCR) Nasal B. parapertussis DNA (PCR) Nasal Coronavir 229E PCR Nasal Coronavir HKU1 PCR Nasal Coronavir NL63 PCR Nasal Coronavir OC43 PCR Nasal Enterovir/Rhinovir PCR Nasal Influenza B PCR Nasal Influenza A PCR Nasal Parainfluen 1 PCR Nasal Parainfluen 2 PCR Nasal Parainfluen 3 PCR Nasal Parainfluen 4 PCR Nasal RSV (PCR) Nasal B.pertussis DNA PCR Nasal C.pneumoniae (PCR) Benjy Human Metapneumo PCR Nasal M.pneumoniae (PCR) Nasal SARS-CoV-2 (PCR) Ethyl Alcohol mg/dL Blood Type Antibody Screen Assessment/Plan - Problem List (1) Pancreatitis Impression: necrotizing pancreatitis with pseudocyst worse since last CT 05/24 w/ pancreatic pseudocysts, necrosis/ no gas in necrosis Developed fever last PM; and increasing tachycardia started meropenem today 06/01 Looks ill but not toxic no other symptoms suggesting fever and Hr represens ETOH withdrawal as opposed to pancreatitis NS changed to LR and rate increased; goal HR < 100, BP ok continue supportive care, IVF, NPO x chips 96 % RA oxygenation, , no severe hemoconcentration, BUN not elevated (7 on admit, 6 today) Re: possible severity predictorCRP at 48 hrs >150 predictor of severilty; < 10 last week>>>>339 today As above, managing conservatively and treating as infected necrosis Prefers oxycodone to IV analgesic increase oxycodone to 10 mg and reeval May have peptobismol mother bringing in (524 ,g q 1 hr , max 4100 mg/24 hr) (per uptodate; no correlation between extent of necrosis and risk of infection; infection can occur early in course of necrotizing pancreatitis; more often seen late in clinical course ; after 10 days (note Mr Melgoza started 05/24); most monomicrobial w/ gut derived orgs. blood cx was sent in ED ABX if any sign of clinical instability / sepsis/ iworse WBC, fever or fail to improve 7-10 days hosp. ) (2) Thrombocytosis :520K today 06/01 r/t pancreatic inflammation (570k on admit) 250k on 05/26 AMA discahrge likely reactive with #1 neccrotic pancreatitis no signs of thrombosis may be sl elwment of hemoconcentration too prophylactic LMWH 40 mg /day since admit recheck cbc in am (3) Pancreatic insufficiency Conclusion/Plan: chronic diarrhea and nonelevated lipase despite severity of pancreatitis argues his pancreas has marked reduction exocrine function add pancrease on d/c (4) High anion gap metabolic acidosis resolved AG 10 today 05/31 nontoxic appearing, not binge driking so doubt ETOH ketoacidosis Cirs criteria of HR, WBC likely r/t pancreatitis rather than infection (lactate not checked, but dont think this is sepsis also had AGA last admit of 20 which quicly recovered, also at [facility] at that time but Del[facility] largely resolved May be mixed SAM with diarrhea/ bicarb losses, starvatio ketosis, recheck in am (5) Anemia of chronic disease/ likely mixed w/macrocytic anemia from ETOH Conclusion/Plan: stable values checked last week B12 634 Ferritin ? 3000 (but in setting of pancreatitis), low Fe, no evident blood loss (6) Alcoholism Conclusion/Plan: On CIWA; score Chronic; BAL 200 on admit Patient loves his life which includes alcohol little motivation to change add Ciwa w/ low dose ativan titrate as needed Add Thiamine/mvi tomorrow if adding some po (7) Hypokalemia/Hypomagnesemia K improved after repletion, PO and IV r/t poor PO intake and chronic diarrhea K repleted PO and IV as above, likely pancreatic insufficiency cdif neg last week Pancrease on d/c to help mitigate k loss Mag 1.6 9; starting IV repletion 8 DNR (do not resuscitate) Conclusion/Plan: "Ryanne had a great awesome life" Confirms wants no resuscitation if cardiopulm arrest Qualifiers: Chronicity: acute Pancreatitis type: unspecified pancreatitis type Acute pancreatitis complication: unspecified Qualified Code(s): K85.90 - Acute pancreatitis without necrosis or infection, unspecified
[2021-06-01 07:35] LABS: HCT - HEMATOCRIT 23.8 % (42.0-52.0); HGB - HEMOGLOBIN 7.9 g/dL (14.0-18.0); MEAN CORPUSCULAR HEMOGLOBIN 38.9 pg (27.0-31.0); MEAN CORPUSCULAR HGB CONC 33.2 g/dL (32.0-36.0); MEAN CORPUSCULAR VOLUME 117.2 fL (80.0-94.0); MEAN PLATELET VOLUME 9.3 fL (7.4-11.4); RED BLOOD COUNT 2.03 10^6/uL (4.70-6.10); RED CELL DISTRIBUTION WIDTH 16.5 % (12.0-15.0); WHITE BLOOD COUNT 10.2 x10^3/uL (4.8-10.8)
[2021-06-01 07:43] LABS: ALBUMIN/GLOBULIN RATIO 0.5 (1.0-2.2); ALKALINE PHOSPHATASE 88 IU/L (42-121); ALT ALANINE AMINOTRANSFERASE 36 IU/L (10-60); AST ASPARTATE AMINOTRANSFERASE 91 IU/L (10-42); BILIRUBIN,TOTAL 0.9 mg/dL (0.2-1.0); BUN - BLOOD UREA NITROGEN 7 mg/dL (6-20); CALCIUM 7.8 mg/dL (8.5-10.3); CARBON DIOXIDE - CO2 24 mmol/L (21-32); CHLORIDE 103 mmol/L (101-111); CREATININE 0.7 mg/dL (0.6-1.2); GFR - MDRD 114 (>89); GLUCOSE 112 mg/dL (70-100); IONIZED CALCIUM IF INDICATED YES; POTASSIUM 3.8 mmol/L (3.5-5.0); SODIUM 137 mmol/L (135-145); TOTAL PROTEIN 6.1 g/dL (6.7-8.2)
[2021-06-01 07:47] LABS: CALCIUM, IONIZED 1.06 mmol/L (1.15-1.33); VBG PH 7.424 (7.31-7.41)
[2021-06-01] MEDS: ENOXAPARIN 40 MG/0.4 ML SYRINGE SUBQ SCH (08:15)
[2021-06-01] MEDS: MEROPENEM 1 GM in SODIUM CHLORIDE 0.9% MINIBAG 100 ML IV SCH ×3 (08:16→22:10)
[2021-06-01] MEDS ORDERED: oxyCODONE 5 MG TABLET PO PRN (08:39)
[2021-06-01] MEDS ORDERED: NS W/20 MEQ KCL 1,000 ML IV SCH (08:41)
--- NOTE | 2021-06-01 09:09 | PHARMACY PROGRESS NOTE ---
- Best Possible Medication History Admit Date and Time: 05/31/21 1553 Processed by: Pharmacy Medication History completed: Yes Patient Interview: Completed (MED REC COMPLETED, PATIENT ABLET TO CONFIRM HOME MEDICATIONS) As the person ultimately responsible for medication therapy, providers are able to order a medication from an existing home medication list in [facility] via the "Reconcile Routine" prior to Confirmation of that medication by customer support coordinator. Such practice is discouraged except when the physician, in their clinical judgment, deems that a medical need exists for a medication without regard to previous use.
[2021-06-01] MEDS ORDERED: LACTATED RINGERS 1,000 ML IV SCH (11:00)
[2021-06-01] MEDS ORDERED: MAGNESIUM SULFATE 2 GRAM 2 GM/50 ML BAG IV ONE (15:00)
[2021-06-01] MEDS: LACTATED RINGERS 1,000 ML IV SCH ×3 (16:20→23:42)
[2021-06-01 16:31] LABS: CREATININE 0.8 mg/dL (0.6-1.2); POTASSIUM 3.8 mmol/L (3.5-5.0)
[2021-06-01] MEDS: oxyCODONE 5 MG TABLET PO PRN ×2 (18:27→23:42)
[2021-06-01] MEDS ORDERED: BISMUTH SUBSALICYLATE 524 MG ORAL PRN (19:25)
[2021-06-02] MEDS: ACETAMINOPHEN 500 MG TABLET PO PRN ×5 (03:54→22:16)
[2021-06-02] MEDS: oxyCODONE 5 MG TABLET PO PRN ×5 (03:55→22:16)
[2021-06-02] MEDS: LACTATED RINGERS 1,000 ML IV SCH ×4 (05:35→18:43)
[2021-06-02] MEDS: MEROPENEM 1 GM in SODIUM CHLORIDE 0.9% MINIBAG 100 ML IV SCH ×3 (05:37→21:45)
[2021-06-02 07:46] LABS: BASOPHILS # (AUTO) 0.1 10^3/uL (0.0-0.1); BASOPHILS % (AUTO) 0.8 %; EOSINOPHILS % (AUTO) 0.1 %; HCT - HEMATOCRIT 21.3 % (42.0-52.0); HGB - HEMOGLOBIN 7.1 g/dL (14.0-18.0); LYMPHOCYTES # (AUTO) 0.9 10^3/uL (1.5-3.5); LYMPHOCYTES % (AUTO) 9.3 %; MEAN CORPUSCULAR HGB CONC 33.3 g/dL (32.0-36.0); MEAN PLATELET VOLUME 9.4 fL (7.4-11.4); MONOCYTES # (AUTO) 0.9 10^3/uL (0.0-1.0); MONOCYTES % (AUTO) 8.8 %; NEUTROPHILS # (AUTO) 7.7 10^3/uL (1.5-6.6); NEUTROPHILS % (AUTO) 76.7 %; PLT - PLATELET COUNT 428 10^3/uL (130-450); RED BLOOD COUNT 1.82 10^6/uL (4.70-6.10)
[2021-06-02 07:52] LABS: CALCIUM 7.9 mg/dL (8.5-10.3); CREATININE 0.7 mg/dL (0.6-1.2); POTASSIUM 3.9 mmol/L (3.5-5.0)
--- NOTE | 2021-06-02 08:19 | PROVIDER PROGRESS NOTE ---
Subjective - Prog Note Date Prog Note Date: 06/02/21 Prog Note Time: 08:17 - Subjective Pt reports feeling: No change (did sleep last night 4 hrs x 2 , credits RNs last flaquita for coming up w/ regimen of oxycodone 5, tylenol and peptobismol which has managed his pain, Voiding frequently some abdominal pain w/ deep breath, having occas loose stools thinks he has some urinary dribbleing, " am I incontinent?") Current Medications - Current Medications Current Medications: Active Medications Generic Name Dose Route Start Last Admin Trade Name Freq PRN Reason Stop Dose Admin Acetaminophen 500 mg 05/31/21 23:52 06/02/21 03:54 Acetaminophen 500 Mg Tablet PO 500 mg Q4HR PRN Administration Pain or Fever > 38C (100.4F) Carboxymethylcellulose 1 drops 05/31/21 23:24 06/01/21 17:06 Carboxymethylcellulose Ophth Drops EACHEYE 1 drops PRN PRN Administration Dry Eye Enoxaparin Sodium 40 mg 06/01/21 09:00 06/01/21 08:15 Enoxaparin 40 Mg/0.4 Ml Syringe SUBQ 40 mg DAILY BAYRON Administration Meropenem 1 gm/ Sodium 100 mls @ 200 mls/hr 06/01/21 08:00 06/02/21 06:57 Chloride IV Infused Q8HR BAYRON Infusion Magnesium Sulfate 2 gm in 50 mls @ 50 mls/hr 06/02/21 09:00 Magnesium Sulfate IV 06/02/21 09:59 ONCE ONE Lactated Ringer's 1,000 mls @ 100 mls/hr 06/02/21 08:15 Lr IV .Q10H BAYRON Lorazepam 1 mg 05/31/21 19:11 Lorazepam 2 Mg/Ml Vial IVP 06/02/21 23:59 Q30M PRN CIWA >8 Protocol Non-Formulary Medication 524 mg 06/01/21 19:25 06/02/21 03:56 Pepto Bismol ORAL 524 mg Q3H PRN Administration Diarrhea Ondansetron HCl 4 mg 05/31/21 15:53 Ondansetron 4 Mg/2 Ml Vial IVP Q6HR PRN Nausea / Vomiting Oxycodone HCl 10 mg 06/01/21 18:00 06/02/21 03:55 Oxycodone 5 Mg Tablet PO 5 mg Q4HR PRN Administration PAIN Sodium Chloride 10 ml 05/31/21 15:53 Sodium Chloride Flush 0.9% 10 Ml Syringe IVP PRN PRN NEEDED PER PROVIDER ORDERS Sodium Chloride 10 ml 05/31/21 17:00 06/01/21 23:31 Sodium Chloride Flush 0.9% 10 Ml Syringe IVP Not Given 0100,0900,1700 BAYRON Lisinopril [Zestril] 40 mg PO DAILY 05/24/21 allopurinoL [Allopurinol] 400 mg PO DAILY 05/24/21 amLODIPine [Norvasc] 5 mg PO DAILY 05/24/21 Objective - Vital Signs/Intake & Output Reviewed Vital Signs: Yes Vital Signs: 11pm 37.4, afebrile (T max 06/01 38.5 8 am) 104 142/70 RR 17 99%RA Intake & Output: Intake & Output 05/30/21 05/31/21 06/01/21 06/02/21 23:59 23:59 23:59 23:59 Intake Total 2819.993 5685.000 1100 Output Total 300 Balance 2819.993 5385.000 1100 - Objective General Appearance: positive: No acute distress, Other (seems to be in a good mood today) Eyes Bilateral: positive: Other (conjunctival pallor). negative: No scleral icterus Respiratory: positive: Chest non-tender, No respiratory distress, Other (sl decreased in bases) Cardiovascular: positive: Regular rate & rhythm (HR ~ 100), No murmur Abdomen: positive: Other (rounded abd, . + active BS, no guarding, diffusely tender mildly, points to whole right side as most uncomfortable) Skin: positive: Warm, Dry, Skin rash (mild scattered papular erythematous rash on back/ mildly pruritic, looks like "heat " rash from plastic matress) Extremities: negative: Pedal edema Neurologic/Psychiatric: positive: Oriented x3, Motor nml - Lab Results Fish Bones: 06/03/21 05:34 06/03/21 05:34 Other Labs: note; completed note on 06/03; populated fish bones are from 06/03Lab Results x24hrs 06/02/21 06/02/21 06/01/21 Range/Units 07:36 07:36 16:15 WBC 10.0 (4.8-10.8) x10^3/uL RBC 1.82 L (4.70-6.10) 10^6/uL Hgb 7.1 L (14.0-18.0) g/dL Hct 21.3 L (42.0-52.0) % MCV 117.0 H (80.0-94.0) fL MCH 39.0 H (27.0-31.0) pg MCHC 33.3 (32.0-36.0) g/dL RDW 16.0 H (12.0-15.0) % Plt Count 428 (130-450) 10^3/uL MPV 9.4 (7.4-11.4) fL Neut # (Auto) 7.7 H (1.5-6.6) 10^3/uL Lymph # (Auto) 0.9 L (1.5-3.5) 10^3/uL [place] # (Auto) 0.9 (0.0-1.0) 10^3/uL Eos # (Auto) 0.0 (0.0-0.7) 10^3/uL Baso # (Auto) 0.1 (0.0-0.1) 10^3/uL Absolute Nucleated RBC 0.00 x10^3/uL Nucleated RBC % 0.0 /100WBC Sodium 134 L (135-145) mmol/L Potassium 3.9 (3.5-5.0) mmol/L Chloride 100 L (101-111) mmol/L Carbon Dioxide 24 (21-32) mmol/L Anion Gap 10.0 (6-13) BUN 5 L (6-20) mg/dL Creatinine 0.7 (0.6-1.2) mg/dL Estimated GFR (MDRD) 114 (>89) Glucose 113 H (70-100) mg/dL Calcium 7.9 L (8.5-10.3) mg/dL C-React Prot High Sens 339.4 mg/L 06/01/21 Range/Units 16:15 WBC (4.8-10.8) x10^3/uL RBC (4.70-6.10) 10^6/uL Hgb (14.0-18.0) g/dL Hct (42.0-52.0) % MCV (80.0-94.0) fL MCH (27.0-31.0) pg MCHC (32.0-36.0) g/dL RDW (12.0-15.0) % Plt Count (130-450) 10^3/uL MPV (7.4-11.4) fL Neut # (Auto) (1.5-6.6) 10^3/uL Lymph # (Auto) (1.5-3.5) 10^3/uL [place] # (Auto) (0.0-1.0) 10^3/uL Eos # (Auto) (0.0-0.7) 10^3/uL Baso # (Auto) (0.0-0.1) 10^3/uL Absolute Nucleated RBC x10^3/uL Nucleated RBC % /100WBC Sodium 133 L (135-145) mmol/L Potassium 3.8 (3.5-5.0) mmol/L Chloride 98 L (101-111) mmol/L Carbon Dioxide 24 (21-32) mmol/L Anion Gap 11.0 (6-13) BUN 6 (6-20) mg/dL Creatinine 0.8 (0.6-1.2) mg/dL Estimated GFR (MDRD) 98 (>89) Glucose 113 H (70-100) mg/dL Calcium 8.0 L (8.5-10.3) mg/dL C-React Prot High Sens mg/L Assessment/Plan - Problem List (1) Pancreatitis Impression: 1) necrotizing pancreatitis with pseudocyst CT 05/[address] 05/24 . Now increasing pancreatic pseudocysts, and necrosis/ no gas in necrosis Fever 38.3 9/7 pm, (T max 38.5) and increasing tachycardia >>started meropenem 05/31 Looked ill yesterday but not toxic, no oxygen requirment; looks improved CRP 339>> 296 today (predictor of severity; > 150 at 48 hrs was < 10 last week) Sirs criteria of HR, WBC likely r/t pancreatitis rather than infection HR continues ~ 100 no other symptoms to suggest the fever and HR represented ETOH withdrawal, thus treating as infected necrosis conservatively Looks improved today; afebrile, Thrombocytosis and CRP improving tho still elevated, blood cultures negatiave LR at 200 cc/hr yesterday, voiding, no evident hemoconcentration Reduce LR to 100 today continue supportive care, IVF, NPO x chips Nutrition notes infrequent necrotic pancreatitis here re: feeding [facility]; for severe pancreatitits [place] feeds added early to AVOID necrosis; technically this is ~ Day 10 since he left AMA last week Checking w/ GI [facility] re: re: recommendation for feeding, duration of meropenem Addendum; d/w [employer] 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 [facility] 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; recommended watih ~ 2 days longer before trying PO food, IF doesnt tolerate, ideally should have [place] (beyond ligament of treitz) Antibiotics should be 10 - 14 days, Doesnt need to be IV Re: possible severity predictorCRP at 48 hrs >150 predictor of severilty; < 10 last week>>>>339 today As above, managing conservatively and treating as infected necrosis Prefers oxycodone to IV analgesic increase oxycodone to 10 mg and reeval May have peptobismol mother bringing in (524 ,g q 1 hr , max 4100 mg/24 hr) (2) Thrombocytosis reactive with #1 necrotic pancreatitis improving 250k on 05/26 AMA discahrge>>590K (05/31) >>520K (06/01)>> 428K (meropenem started 06/01 am) no signs of thrombosis prophylactic LMWH 40 mg /day since admit recheck cbc in am (3) Pancreatic insufficiency Conclusion/Plan: chronic diarrhea and nonelevated lipase despite severity of pancreatitis argues his pancreas has marked reduction exocrine function add pancrease on d/c (if GI indicates PO feed appropriate, will add here in hospital) (4) High anion gap metabolic acidosis resolved (was 20 on admit) lactate was not checked on admit May have corey be mixed SAM with diarrhea/ bicarb losses, starvation ketosis, (5) Anemia of chronic disease/ likely mixed w/macrocytic anemia from ETOH H/H today most c/w dilution, do not suspect active bleed As per H/P had anemia w/u last week, most c/w values checked last week B12 634 Ferritin ? 3000 (but in setting of pancreatitis), low Fe, Will add MVI and thiamine to daily Rx no evident blood loss recheck in am (6) Alcoholism Conclusion/Plan: On CIWA; score 0, no withdrawal Chronic; BAL 200 on admit MVI in PPN (7) Hypokalemia/Hypomagnesemia K improved after repletion, PO and IV 3.0 on admit, 3.9 today will have K in PPN r/t poor PO intake and chronic diarrhea got Mag 2 grm last pm and 2 gram this am 8 DNR (do not resuscitate) Conclusion/Plan: "Ryanne had a great awesome life" Confirms wants no resuscitation if cardiopulm arrest Given POLST to review, he does not want "heroics" Qualifiers: Chronicity: acute Pancreatitis type: unspecified pancreatitis type Acute pancreatitis complication: unspecified Qualified Code(s): K85.90 - Acute pancreatitis without necrosis or infection, unspecified
[2021-06-02] MEDS ORDERED: MAGNESIUM SULFATE 2 GRAM 2 GM/50 ML BAG IV ONE ×2 (09:00→09:30)
[2021-06-02] MEDS: ENOXAPARIN 40 MG/0.4 ML SYRINGE SUBQ SCH (09:15)
[2021-06-02] MEDS: SODIUM CHLORIDE FLUSH 0.9% 10 ML SYRINGE IVP SCH ×2 (09:15→16:55)
[2021-06-02] MEDS ORDERED: BISMUTH SUBSALICYLATE PO PRN (09:35)
[2021-06-02] MEDS ORDERED: PRENATAL VITAMIN TABLET PO SCH (12:00)
[2021-06-02] MEDS: BISMUTH SUBSALICYLATE 525 MG PO PRN ×3 (14:13→22:16)
[2021-06-02] MEDS ORDERED: CALAMINE/ZINC OXIDE 177 ML BOTTLE TOP PRN (16:21)
[2021-06-02] MEDS: PPN (CLINIMIX E 4.25/5) 2,000 ML with MULTIVITAMIN 10 ML, TRACE ELEMENTS 1 ML IV SCH ×3 (18:44)
[2021-06-02] MEDS: FAT EMULSION 20% 250 ML IV SCH (18:49)
[2021-06-03] MEDS: SODIUM CHLORIDE FLUSH 0.9% 10 ML SYRINGE IVP SCH ×3 (01:40→16:36)
[2021-06-03] MEDS: BISMUTH SUBSALICYLATE 525 MG PO PRN ×5 (02:21→22:25)
[2021-06-03] MEDS: ACETAMINOPHEN 500 MG TABLET PO PRN ×5 (02:22→22:25)
[2021-06-03] MEDS: oxyCODONE 5 MG TABLET PO PRN ×5 (02:22→22:25)
[2021-06-03] MEDS: MEROPENEM 1 GM in SODIUM CHLORIDE 0.9% MINIBAG 100 ML IV SCH ×3 (05:28→22:20)
[2021-06-03] MEDS: LACTATED RINGERS 1,000 ML IV SCH ×2 (05:28→08:36)
[2021-06-03 05:52] LABS: BASOPHILS % (AUTO) 0.5 %; EOSINOPHILS % (AUTO) 0.2 %; HCT - HEMATOCRIT 25.1 % (42.0-52.0); HGB - HEMOGLOBIN 8.1 g/dL (14.0-18.0); LYMPHOCYTES % (AUTO) 12.6 %; MEAN CORPUSCULAR HEMOGLOBIN 38.2 pg (27.0-31.0); MEAN CORPUSCULAR HGB CONC 32.3 g/dL (32.0-36.0); MEAN CORPUSCULAR VOLUME 118.4 fL (80.0-94.0); MEAN PLATELET VOLUME 9.4 fL (7.4-11.4); MONOCYTES % (AUTO) 9.7 %; NEUTROPHILS % (AUTO) 70.6 %; PLT - PLATELET COUNT 443 10^3/uL (130-450); RED BLOOD COUNT 2.12 10^6/uL (4.70-6.10); RED CELL DISTRIBUTION WIDTH 15.9 % (12.0-15.0); WHITE BLOOD COUNT 11.1 x10^3/uL (4.8-10.8)
[2021-06-03 05:56] LABS: ABNORMAL LYMPHS % (MANUAL) 0 %
[2021-06-03 06:13] LABS: CALCIUM 8.4 mg/dL (8.5-10.3); CREATININE 0.7 mg/dL (0.6-1.2); POTASSIUM 3.3 mmol/L (3.5-5.0)
[2021-06-03 06:14] LABS: BAND NEUTROPHILS % (MANUAL) 2 %; LYMPHOCYTES # (MANUAL) 1.9 10^3/uL (1.5-3.5); LYMPHOCYTES % (MANUAL) 17 %; MONOCYTES # (MANUAL) 1.3 10^3/uL (0.0-1.0); MYELOCYTES % (MANUAL) 1 %; NEUTROPHILS # (MANUAL) 7.8 10^3/uL (1.5-6.6)
[2021-06-03 06:15] LABS: DIFFERENTIAL COMMENT MANUAL DIFFERENTIAL; PLATELET ESTIMATE, MANUAL NORMAL (130-450,000) (NORMAL); PLATELET MORPHOLOGY NORMAL APPEARANCE (NORMAL); WBC MORPHOLOGY (MULTIPLE) NORMAL APPEARANCE (NORMAL)
[2021-06-03] MEDS: POTASSIUM CHLOR 10 MEQ/100 ML 10 MEQ/100 ML BAG IV SCH ×5 (07:23→12:27)
[2021-06-03 08:24] LABS: MAGNESIUM 1.7 mg/dL (1.7-2.8); PHOSPHORUS 3.6 mg/dL (2.5-4.6)
--- NOTE | 2021-06-03 08:35 | PROVIDER PROGRESS NOTE ---
Subjective - Prog Note Date Prog Note Date: 06/03/21 Prog Note Time: 17:54 (seen early this a) - Subjective Pt reports feeling: No change Subjective: Ok night doesnt plan to leave AMA "the ICU was just too noisy last time" No SOB, no fever, voiding well, just flatus, no BM overnight "you already told me that 3x" (abd girth increased today; I mentioned his protein is low in his blood. he dismissed explanation of low protein thinking I'm referring to the H/H yesterday. "I noted yesterday his H/H were artificially low from the LR at 200 overnight; he acknowledged understanding, understood that H/H was "skewed" w/ the fluid" Yeah, you circumvented me with that call to [facility] yesterday; I'm not going to [facility] (explained yesterday I consulted w/ GI to confirm current management and plan w/ the necrotizing pancreatitis) Generally pleasant but kind of argumentative today. "just shoot me if I get sicker" Current Medications - Current Medications Current Medications: Active Medications Generic Name Dose Route Start Last Admin Trade Name Freq PRN Reason Stop Dose Admin Acetaminophen 500 mg 05/31/21 23:52 06/03/21 02:22 Acetaminophen 500 Mg Tablet PO 500 mg Q4HR PRN Administration Pain or Fever > 38C (100.4F) Calamine 1 applic 06/02/21 16:21 06/02/21 16:55 Calamine/Zinc Oxide 177 Ml Bottle TOP 1 applic PRN PRN Administration SKIN CARE Carboxymethylcellulose 1 drops 05/31/21 23:24 06/01/21 17:06 Carboxymethylcellulose Ophth Drops EACHEYE 1 drops PRN PRN Administration Dry Eye Enoxaparin Sodium 40 mg 06/01/21 09:00 06/02/21 09:15 Enoxaparin 40 Mg/0.4 Ml Syringe SUBQ 40 mg DAILY BAYRON Administration Meropenem 1 gm/ Sodium 100 mls @ 200 mls/hr 06/01/21 08:00 06/03/21 05:59 Chloride IV Infused Q8HR BAYRON Infusion Fat Emulsion Intravenous 250 mls @ 21 mls/hr 06/02/21 19:00 06/03/21 06:45 Intralipid 20% IV Infused 1900 BAYRON Infusion Multivitamins 10 ml/ TRACE 2,011 mls @ 83 mls/hr 06/02/21 19:00 06/02/21 18:44 ELEMENTS 1 ml/ Amino Acids/ IV 83 mls/hr Electrolytes/Dextrose 1900 BAYRON Administration Potassium Chloride 10 meq in 100 mls @ 100 mls/hr 06/03/21 07:00 06/03/21 07:23 Potassium Chloride IV 06/03/21 11:59 100 mls/hr Q1H BAYRON Administration Lactated Ringer's 1,000 mls @ 21 mls/hr 06/03/21 08:30 Lr IV .[id number] BAYRON Pt Own Med ( 525 mg 06/02/21 10:48 06/03/21 02:21 Pepto Bismol 525 Mg) PO 525 mg Q4H PRN Administration Diarrhea Ondansetron HCl 4 mg 05/31/21 15:53 Ondansetron 4 Mg/2 Ml Vial IVP Q6HR PRN Nausea / Vomiting Oxycodone HCl 5 mg 06/02/21 18:40 06/03/21 02:22 Oxycodone 5 Mg Tablet PO 5 mg Q4HR PRN Administration PAIN Sodium Chloride 10 ml 05/31/21 15:53 Sodium Chloride Flush 0.9% 10 Ml Syringe IVP PRN PRN NEEDED PER PROVIDER ORDERS Sodium Chloride 10 ml 05/31/21 17:00 06/03/21 01:40 Sodium Chloride Flush 0.9% 10 Ml Syringe IVP Not Given 0100,0900,1700 [facility] Lisinopril [Zestril] 40 mg PO DAILY 05/24/21 allopurinoL [Allopurinol] 400 mg PO DAILY 05/24/21 amLODIPine [Norvasc] 5 mg PO DAILY 05/24/21 Objective - Vital Signs/Intake & Output Reviewed Vital Signs: Yes Vital Signs: Vital Signs x48h Temp Pulse Resp BP Pulse Ox 06/03/21 07:47 37 C 100 18 140/69 H 98 Intake & Output: Intake & Output 05/31/21 06/01/21 06/02/21 06/03/21 23:59 23:59 23:59 23:59 Intake Total 2819.993 5685.000 3350 995 Output Total 300 1100 Balance 2819.993 5385.000 2250 995 - Objective General Appearance: positive: No acute distress, Alert, Other (a bit argumentative as per Subjective) Eyes Bilateral: positive: Conjunctivae nml (some conjunctival pallor) Respiratory: positive: Chest non-tender, No respiratory distress, Breath sounds nml (perhaps decreased BS at bases, no crackles, no egophony, no tachypnea) Cardiovascular: positive: Regular rate & rhythm, No murmur, Other (HR ~ 100) Abdomen: positive: Nml bowel sounds, Other (full urinal noted in bathroom, voiding wwell). negative: No distention (soft, but increased girth today, "bulging flanks" is a bit generous but larger girth than 06/02. not distended, not taut, not typmanic on percussion) Skin: positive: Warm, Dry, Skin rash (unremarkable rash on back, looks like "heat rash" from plastic mattress) Extremities: positive: Pedal edema (trace pretibial edema) Neurologic/Psychiatric: positive: Oriented x3, Mood/affect nml - Lab Results Fish Bones: 06/03/21 05:34 06/03/21 05:34 Other Labs: Lab Results x24hrs 06/03/21 06/03/21 06/03/21 Range/Units 05:34 05:34 05:34 WBC 11.1 H (4.8-10.8) x10^3/uL RBC 2.12 L (4.70-6.10) 10^6/uL Hgb 8.1 L (14.0-18.0) g/dL Hct 25.1 L (42.0-52.0) % MCV 118.4 H (80.0-94.0) fL MCH 38.2 H (27.0-31.0) pg MCHC 32.3 (32.0-36.0) g/dL RDW 15.9 H (12.0-15.0) % Plt Count 443 (130-450) 10^3/uL MPV 9.4 (7.4-11.4) fL Neut # (Auto) Not Reportable Lymph # (Auto) Not Reportable Kane # (Auto) Not Reportable Eos # (Auto) Not Reportable Baso # (Auto) Not Reportable Absolute Nucleated RBC Not Reportable Total Counted 100 Band Neuts % (Manual) 2 (0 - 10) % Abnorm Lymph % (Manual) 0 % Myelocytes % 1 H ( - 0) % Nucleated RBC % Not Reportable Neutrophils # (Manual) 7.8 H (1.5-6.6) 10^3/uL Lymphocytes # (Manual) 1.9 (1.5-3.5) 10^3/uL Monocytes # (Manual) 1.3 H (0.0-1.0) 10^3/uL Eosinophils # (Manual) 0.0 (0-0.7) 10^3/uL Basophils # (Manual) 0.0 (0-0.1) 10^3/uL Differential Comment MANUAL DIFFERENTIAL WBC Morphology NORMAL APPEARANCE (NORMAL) Platelet Estimate NORMAL (130-450,000) (NORMAL) Platelet Morphology NORMAL APPEARANCE (NORMAL) RBC Morph Micro Appear 1+ ANISOCYTOSIS (NORMAL) Sodium 136 (135-145) mmol/L Potassium 3.3 L (3.5-5.0) mmol/L Chloride 98 L (101-111) mmol/L Carbon Dioxide 27 (21-32) mmol/L Anion Gap 11.0 (6-13) BUN 6 (6-20) mg/dL Creatinine 0.7 (0.6-1.2) mg/dL Estimated GFR (MDRD) 114 (>89) Glucose 126 H (70-100) mg/dL Calcium 8.4 L (8.5-10.3) mg/dL Phosphorus (2.5-4.6) mg/dL Magnesium (1.7-2.8) mg/dL C-React Prot High Sens 337.0 mg/L Triglycerides ( - 149) mg/dL 06/03/21 06/02/21 Range/Units 05:05 07:36 WBC (4.8-10.8) x10^3/uL RBC (4.70-6.10) 10^6/uL Hgb (14.0-18.0) g/dL Hct (42.0-52.0) % MCV (80.0-94.0) fL MCH (27.0-31.0) pg MCHC (32.0-36.0) g/dL RDW (12.0-15.0) % Plt Count (130-450) 10^3/uL MPV (7.4-11.4) fL Neut # (Auto) Lymph # (Auto) Kane # (Auto) Eos # (Auto) Baso # (Auto) Absolute Nucleated RBC Total Counted Band Neuts % (Manual) (0 - 10) % Abnorm Lymph % (Manual) % Myelocytes % ( - 0) % Nucleated RBC % Neutrophils # (Manual) (1.5-6.6) 10^3/uL Lymphocytes # (Manual) (1.5-3.5) 10^3/uL Monocytes # (Manual) (0.0-1.0) 10^3/uL Eosinophils # (Manual) (0-0.7) 10^3/uL Basophils # (Manual) (0-0.1) 10^3/uL Differential Comment WBC Morphology (NORMAL) Platelet Estimate (NORMAL) Platelet Morphology (NORMAL) RBC Morph Micro Appear (NORMAL) Sodium (135-145) mmol/L Potassium (3.5-5.0) mmol/L Chloride (101-111) mmol/L Carbon Dioxide (21-32) mmol/L Anion Gap (6-13) BUN (6-20) mg/dL Creatinine (0.6-1.2) mg/dL Estimated GFR (MDRD) (>89) Glucose (70-100) mg/dL Calcium (8.5-10.3) mg/dL Phosphorus 3.6 (2.5-4.6) mg/dL Magnesium 1.7 (1.7-2.8) mg/dL C-React Prot High Sens 296.3 mg/L Triglycerides 130 ( - 149) mg/dL Assessment/Plan - Problem List (1) Pancreatitis Impression: Alcoholic pancreatitis/necrotizing pancreatitis with pseudocyst CT 05/[address] 05/24 . Now with increasing pancreatic pseudocysts, and necrosis/ (no gas in necrosis) Fever 38.3 05/31 pm, (T max 38.5) and increasing tachycardia >>started meropenem 05/31 , afebrile since Looked ill 06/01 but not toxic, no oxygen requirment CRP 339 06/01 >> 296 06/02>> (predictor of severity; > 150 at 48 hrs CRP was < 10 last week) Cirs criteria of HR, WBC likely r/t pancreatitis rather than infection HR continues ~ 100 no other symptoms to suggest the fever and HR represented ETOH withdrawal on 06/01, thus treating as infected necrosis conservatively Looked improved last 2 days although CRP, platelet count and WBC all slightlyt elevated again today 06/03 Blood cultures negative Hemodynamically stable, HR has stayed ~ 100 (and was ~ 100 last admit as well) Reduced LR rate to 21 cc/hr w/ start of PPN yesterday (82 c/hr) given evident 3rd spacing today,(caicedo abd, tr pretibial edema) / otherwise no change in abdoinal exam continue NPO x chips/meds (see detail below from GI) For pain, patient prefers PO; oxycodone 5 mg q4prn, tylenoln and prn peptobismol (mother had brought in) I/O was inaccurate til 06/02 3982 in today, 3182 out Spoke w/ GI on 06/02 re:: recommendation for feeding, duration of meropenem w/ necrotizing pancreatitis -Antibiotics should be 10 - 14 days, Doesnt need to be IV Meropenem Day 3 today 06/03 If clinically improving (tolerating PO food, inflammatory markers improving "consider Augmentin vs higher generation cephalosporin(GNR coverage) and Flagyl ("would ask ID") RE feeding; advised wait 1-2 days days (til clearly improving re: inflammatory markers, hemodynamic stability; could try low fat diet, but if pain, NJ feeds beyond Ligament of Treitz Plan; PPN started 06/02 Possibly try clear liquids (e.g "Enlive") on Sunday, if tolerates w/ no pain, try low fat diet on Sun Needs panc enzyme replacement when solids start for exocrine dysfxn. GI Did note pt certainly could worsen and pancreas service at would certainly accept such a patient (if beds open) (2) Thrombocytosis reactive with #1 necrotic pancreatitis as above slight increase today again, though clinically looks stable 250k on 05/26 AMA discahrge>>590K (05/31) >>520K (06/01)>> 428K 06/02>> 443 (meropenem started 06/01 am) no signs of thrombosis prophylactic LMWH 40 mg /day since admit recheck cbc in am (3) Pancreatic insufficiency Conclusion/Plan: chronic diarrhea and nonelevated lipase despite severity of pancreatitis argues his pancreas has marked reduction exocrine function add pancrease on d/c (if GI indicates PO feed appropriate, will add here in hospital) (4) High anion gap metabolic acidosis RESOLVED (was 20 on admit) lactate was not checked on admit May have corey be mixed SAM with diarrhea/ bicarb losses, starvation ketosis, (5) Anemia of chronic disease/ likely mixed w/macrocytic anemia from ETOH H/H 06/02 most c/w dilution when ringers at 200/hr overnight, do not suspect active bleed and H/H more c/w his baseline now Hgb 8.1 As per H/P had anemia w/u last week, most c/w ACD (also macrocytic r/t poor nutrition/ likely mixed) values checked last week B12 634 Ferritin > 3000 (but in setting of pancreatitis), low Fe, Added MVI and thiamine to regimen 99 , but will get PPN (w/ MVI) (6) Alcoholism Conclusion/Plan: On CIWA; score 0, no withdrawal Will d/c CIWA today 06/03 Chronic; BAL 200 on admit MVI in PPN (7) Hypokalemia/Hypomagnesemia K improved after repletion, PO and IV 3.0 on admit, 3.9 yesterday, is on PPN now w/ Mag/ K in bag 3.3 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 ; got 50 meq IV K 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 06/03 r/t poor PO intake and chronic diarrhea Replete PO if needs repletion recheck in am w/ mag 8 DNR (do not resuscitate) Conclusion/Plan: "Ryanne had a great awesome life" Confirms wants no resuscitation if cardiopulm arrest Given POLST to review, he does not want "heroics" 9) Possible BPH; low volume ~ 100 cc residual yesterday will add flomax at hs Qualifiers: Chronicity: acute Pancreatitis type: unspecified pancreatitis type Acute pancreatitis complication: unspecified Qualified Code(s): K85.90 - Acute pancreatitis without necrosis or infection, unspecified
[2021-06-03] MEDS: ENOXAPARIN 40 MG/0.4 ML SYRINGE SUBQ SCH (08:36)
[2021-06-03] MEDS: diphenhydrAMINE 25 MG CAPSULE PO PRN ×2 (16:42→23:05)
[2021-06-03] MEDS: FAT EMULSION 20% 250 ML IV SCH (18:32)
[2021-06-03] MEDS: PPN (CLINIMIX E 4.25/5) 2,000 ML with MULTIVITAMIN 10 ML, TRACE ELEMENTS 1 ML IV SCH ×3 (18:32)
[2021-06-03] MEDS: TAMSULOSIN 0.4 MG CAPSULE PO SCH (20:04)
[2021-06-04] MEDS: diphenhydrAMINE 25 MG CAPSULE PO PRN ×2 (05:36→23:49)
[2021-06-04] MEDS: ACETAMINOPHEN 500 MG TABLET PO PRN ×3 (05:58→18:44)
[2021-06-04] MEDS: SODIUM CHLORIDE FLUSH 0.9% 10 ML SYRINGE IVP SCH ×3 (06:01→19:27)
[2021-06-04] MEDS: MEROPENEM 1 GM in SODIUM CHLORIDE 0.9% MINIBAG 100 ML IV SCH ×3 (06:10→21:35)
[2021-06-04 06:15] LABS: BASOPHILS % (AUTO) 0.6 %; EOSINOPHILS % (AUTO) 0.3 %; HCT - HEMATOCRIT 23.2 % (42.0-52.0); HGB - HEMOGLOBIN 7.6 g/dL (14.0-18.0); LYMPHOCYTES % (AUTO) 11.9 %; MEAN CORPUSCULAR HEMOGLOBIN 38.4 pg (27.0-31.0); MEAN CORPUSCULAR HGB CONC 32.8 g/dL (32.0-36.0); MEAN CORPUSCULAR VOLUME 117.2 fL (80.0-94.0); MEAN PLATELET VOLUME 9.7 fL (7.4-11.4); MONOCYTES % (AUTO) 11.5 %; NEUTROPHILS % (AUTO) 67.3 %; PLT - PLATELET COUNT 369 10^3/uL (130-450); RED BLOOD COUNT 1.98 10^6/uL (4.70-6.10); RED CELL DISTRIBUTION WIDTH 16.2 % (12.0-15.0); WHITE BLOOD COUNT 10.1 x10^3/uL (4.8-10.8)
[2021-06-04 06:20] LABS: ABNORMAL LYMPHS % (MANUAL) 0 %
[2021-06-04 06:21] LABS: CALCIUM 8.2 mg/dL (8.5-10.3); CREATININE 0.6 mg/dL (0.6-1.2); MAGNESIUM 1.5 mg/dL (1.7-2.8); POTASSIUM 3.5 mmol/L (3.5-5.0)
[2021-06-04 06:41] LABS: BAND NEUTROPHILS % (MANUAL) 2 %; DIFFERENTIAL COMMENT MANUAL DIFFERENTIAL; EOSINOPHILS # (MANUAL) 0.1 10^3/uL (0-0.7); LYMPHOCYTES # (MANUAL) 1.1 10^3/uL (1.5-3.5); LYMPHOCYTES % (MANUAL) 11 %; METAMYELOCYTES % (MANUAL) 1 %; MONOCYTES # (MANUAL) 1.1 10^3/uL (0.0-1.0); NEUTROPHILS # (MANUAL) 7.7 10^3/uL (1.5-6.6); PLATELET ESTIMATE, MANUAL NORMAL (130-450,000) (NORMAL); PLATELET MORPHOLOGY NORMAL APPEARANCE (NORMAL); WBC MORPHOLOGY (MULTIPLE) NORMAL APPEARANCE (NORMAL)
[2021-06-04] MEDS: ENOXAPARIN 40 MG/0.4 ML SYRINGE SUBQ SCH (09:19)
[2021-06-04] MEDS: oxyCODONE 5 MG TABLET PO PRN ×2 (11:46→18:44)
[2021-06-04] MEDS: BISMUTH SUBSALICYLATE 525 MG PO PRN (11:47)
[2021-06-04] MEDS: LACTATED RINGERS 1,000 ML IV SCH (14:52)
--- NOTE | 2021-06-04 17:51 | PROVIDER PROGRESS NOTE ---
Assessment/Plan - Problem List (1) Necrotizing pancreatitis Assessment/Plan: Alcoholic pancreatitis/necrotizing pancreatitis with pseudocyst, by CT worse since last CT 05/24 . Fever and tachycardia >>started meropenem on 05/31 , afebrile since CRP 339 and slow,y improving His LR and PPN continue Spoke w/ GI on 06/02/21 who recommended -Antibiotics should be 10 - 14 days, currently on iv Meropenem, Doesnt need to be IV,can change to Augmentin plus Flagyl when taking po diet without pain (tolerating PO food, inflammatory markers improving), try low fat diet, but if he gets pain,then needs NJ feeds (delovered beyond Ligament of Treitz). GI Did note pt certainly could worsen and pancreas service at would certainly accept such a patient (if beds open). Will continue clear liquids on Sunday, if tolerates w/ no pain, try low fat diet pureed on Sun For pain, patient prefers PO; oxycodone 5 mg q4prn, tylenoln and prn peptobismol (mother had brought in) (2) Pancreatic insufficiency Assessment/Plan: His diet will start with clear liquids and then bland pured foods for many days to see if he can tolerate this. He will be started on pancreatic enzymes as his diet advances (3) Anemia Assessment/Plan: Stable but very low Hgb Values checked last week: B12 634 Ferritin ? 3000 (but in setting of pancreati tis), low Fe no evident blood loss Will check Folate Will replace if low Follow CBC daily, replace if Hgb under 7. (4) Alcohol abuse Assessment/Plan: Patient admitted to me "I really did myself and when I have been a heavy drinker since I was young". Social work consult was ordered at admission and he refused to be seen by the renal social worker. He is getting thiamine and supplements parenterally (5) Urinary retention Assessment/Plan: Added on meds for BPH since here (6) Hypomagnesemia Assessment/Plan: To his poor p.o. intake and alcohol abuse. Replace (7) Severe protein-calorie malnutrition Assessment/Plan: Related to his poor p.o. intake and alcoholism. He is getting supplements (8) Hypokalemia Assessment/Plan: Improved with replacement (9) Thrombocytosis Assessment/Plan: Resolved - Current Meds Current Meds: Current Medications Generic Name Dose Route Start Last Admin Trade Name Freq PRN Reason Stop Dose Admin Acetaminophen 500 mg 05/31/21 23:52 06/04/21 11:47 Acetaminophen 500 Mg Tablet PO 500 mg Q4HR PRN Administration Pain or Fever > 38C (100.4F) Calamine 1 applic 06/02/21 16:21 06/02/21 16:55 Calamine/Zinc Oxide 177 Ml Bottle TOP 1 applic PRN PRN Administration SKIN CARE Carboxymethylcellulose 1 drops 05/31/21 23:24 06/01/21 17:06 Carboxymethylcellulose Ophth Drops EACHEYE 1 drops PRN PRN Administration Dry Eye Diphenhydramine HCl 25 mg 06/03/21 14:58 06/04/21 05:36 Diphenhydramine 25 Mg Capsule PO 25 mg Q6H PRN Administration Allergy Symptoms Enoxaparin Sodium 40 mg 06/01/21 09:00 06/04/21 09:19 Enoxaparin 40 Mg/0.4 Ml Syringe SUBQ 40 mg DAILY BAYRON Administration Meropenem 1 gm/ Sodium 100 mls @ 200 mls/hr 06/01/21 08:00 06/04/21 14:30 Chloride IV Infused Q8HR BAYRON Infusion Fat Emulsion Intravenous 250 mls @ 21 mls/hr 06/02/21 19:00 06/04/21 06:27 Intralipid 20% IV Infused 1900 BAYRON Infusion Multivitamins 10 ml/ TRACE 2,011 mls @ 83 mls/hr 06/02/21 19:00 06/03/21 18:32 ELEMENTS 1 ml/ Amino Acids/ IV 83 mls/hr Electrolytes/Dextrose 1900 BAYRON Administration Lactated Ringer's 1,000 mls @ 21 mls/hr 06/03/21 08:30 06/04/21 14:52 Lr IV 21 mls/hr .[id number] BAYRON Administration Pt Own Med ( 525 mg 06/02/21 10:48 06/04/21 11:47 Pepto Bismol 525 Mg) PO 525 mg Q4H PRN Administration Diarrhea Oxycodone HCl 5 mg 06/02/21 18:40 06/04/21 11:46 Oxycodone 5 Mg Tablet PO 5 mg Q4HR PRN Administration PAIN Sodium Chloride 10 ml 05/31/21 17:00 06/04/21 09:19 Sodium Chloride Flush 0.9% 10 Ml Syringe IVP 10 ml 0100,0900,1700 BAYRON Administration Tamsulosin HCl 0.4 mg 06/03/21 21:00 06/03/21 20:04 Tamsulosin 0.4 Mg Capsule PO 0.4 mg QPM BAYRON Administration - Lab Result Fish Bone Diagrams: 06/05/21 05:42 06/05/21 05:42 - Additional Planning My Orders: My Active Orders 06/05/21 Breakfast Clear Liquid Diet [DIET] 06/05/21 05:00 BMP - BASIC METABOLIC PANEL [CHEM] DAILYLAB CBC - COMP BLD CT W/AUTO DIFF [HEME] DAILYLAB CRP - C-REACTIVE PROTEIN [CHEM] DAILYLAB MAGNESIUM [CHEM] DAILYLAB 06/06/21 05:00 BMP - BASIC METABOLIC PANEL [CHEM] DAILYLAB CBC - COMP BLD CT W/AUTO DIFF [HEME] DAILYLAB 06/07/21 05:00 BMP - BASIC METABOLIC PANEL [CHEM] DAILYLAB CBC - COMP BLD CT W/AUTO DIFF [HEME] DAILYLAB 06/08/21 05:00 BMP - BASIC METABOLIC PANEL [CHEM] DAILYLAB CBC - COMP BLD CT W/AUTO DIFF [HEME] DAILYLAB Subjective - Subjective Patient Reports: Resting Comfortably, Pain, Other (He got clear liquids (by mistake) and had no pain.) Nursing Reports: Pain (Still requesting pain meds of oxycodone and Tylenol every 8 hours) Objective Vital Signs: Vital Signs - 24 hr 06/03/21 06/04/21 06/04/21 23:04 08:00 12:53 Temperature 37.5 C 37.1 C 37.4 C Heart Rate [ 110 H 101 H 118 H Monitoring electrodes] Respiratory 18 18 20 Rate Blood Pressure 131/75 H 135/78 H 136/76 H [Left Brachial artery] O2 Saturation 95 96 95 06/04/21 15:39 Temperature 37.2 C Heart Rate [ 103 H Monitoring electrodes] Respiratory 20 Rate Blood Pressure 130/77 [Left Brachial artery] O2 Saturation 95 Oxygen O2 Source Room air I&O (Last 24 Hrs): Intake and Output Totals x24h 06/02/21 06/03/21 06/04/21 23:59 23:59 23:59 Intake Total 3350 4082.4 1445.6 Output Total 1100 1075 375 Balance 2250 3007.4 1070.6 General: Alert, Oriented x3 HEENT: Mucous membr. moist/pink, Other (Very pale) Neck: Supple Neuro: Alert, Non Focal Cardiovascular: Regular rate, No murmurs Respiratory: No respiratory distress, Breath sounds nml Abdomen: Soft, No tenderness, Other (Diminished bowel sounds, distended abd) Extremities: No clubbing, No edema - Results Results: Laboratory Results WBC 10.1 x10^3/uL (4.8-10.8) 06/04/21 05:53 RBC 1.98 10^6/uL (4.70-6.10) L 06/04/21 05:53 Hgb 7.6 g/dL (14.0-18.0) L 06/04/21 05:53 Hct 23.2 % (42.0-52.0) L 06/04/21 05:53 MCV 117.2 fL (80.0-94.0) H 06/04/21 05:53 MCH 38.4 pg (27.0-31.0) H 06/04/21 05:53 MCHC 32.8 g/dL (32.0-36.0) 06/04/21 05:53 RDW 16.2 % (12.0-15.0) H 06/04/21 05:53 Plt Count 369 10^3/uL (130-450) 06/04/21 05:53 MPV 9.7 fL (7.4-11.4) 06/04/21 05:53 Neut # (Auto) Not Reportable 06/04/21 05:53 Lymph # (Auto) Not Reportable 06/04/21 05:53 [facility] # (Auto) Not Reportable 06/04/21 05:53 Eos # (Auto) Not Reportable 06/04/21 05:53 Baso # (Auto) Not Reportable 06/04/21 05:53 Absolute Nucleated RBC Not Reportable 06/04/21 05:53 Total Counted 100 06/04/21 05:53 Band Neuts % (Manual) 2 % (0-10) 06/04/21 05:53 Abnorm Lymph % (Manual) 0 % 06/04/21 05:53 Metamyelocytes % 1 % (-0) H 06/04/21 05:53 Myelocytes % 1 % (-0) H 06/03/21 05:34 Nucleated RBC % Not Reportable 06/04/21 05:53 Neutrophils # (Manual) 7.7 10^3/uL (1.5-6.6) H 06/04/21 05:53 Lymphocytes # (Manual) 1.1 10^3/uL (1.5-3.5) L 06/04/21 05:53 Monocytes # (Manual) 1.1 10^3/uL (0.0-1.0) H 06/04/21 05:53 Eosinophils # (Manual) 0.1 10^3/uL (0-0.7) 06/04/21 05:53 Basophils # (Manual) 0.0 10^3/uL (0-0.1) 06/04/21 05:53 Differential Comment MANUAL DIFFERENTIAL 06/04/21 05:53 Manual Slide Review Indicated 05/31/21 13:10 WBC Morphology NORMAL APPEARANCE (NORMAL) 06/04/21 05:53 Platelet Estimate NORMAL (130-450,000) (NORMAL) 06/04/21 05:53 Platelet Morphology NORMAL APPEARANCE (NORMAL) 06/04/21 05:53 RBC Morph Micro Appear 1+ HYPOCHROMASIA (NORMAL) 1+ POLYCHROMASIA (NORMAL) 1+ MACROCYTOSIS (NORMAL) 1+ ANISOCYTOSIS (NORMAL) 06/04/21 05:53 RBC Morph Micro Appear 1+ HYPOCHROMASIA (NORMAL) 1+ POLYCHROMASIA (NORMAL) 1+ MACROCYTOSIS (NORMAL) 1+ ANISOCYTOSIS (NORMAL) 06/04/21 05:53 RBC Morph Micro Appear 1+ HYPOCHROMASIA (NORMAL) 1+ POLYCHROMASIA (NORMAL) 1+ MACROCYTOSIS (NORMAL) 1+ ANISOCYTOSIS (NORMAL) 06/04/21 05:53 RBC Morph Micro Appear 1+ HYPOCHROMASIA (NORMAL) 1+ POLYCHROMASIA (NORMAL) 1+ MACROCYTOSIS (NORMAL) 1+ ANISOCYTOSIS (NORMAL) 06/04/21 05:53 PT 14.1 secs (9.9-12.6) H 05/31/21 13:55 INR 1.3 (0.8-1.2) H 05/31/21 13:55 APTT 23.7 secs (24.9-33.3) L 05/31/21 13:55 VBG pH 7.424 (7.31-7.41) H 06/01/21 07:22 Ionized Calcium 1.06 mmol/L (1.15-1.33) L 06/01/21 07:22 Sodium 135 mmol/L (135-145) 06/04/21 05:53 Potassium 3.5 mmol/L (3.5-5.0) 06/04/21 05:53 Chloride 98 mmol/L (101-111) L 06/04/21 05:53 Carbon Dioxide 27 mmol/L (21-32) 06/04/21 05:53 Anion Gap 10.0 (6-13) 06/04/21 05:53 BUN 7 mg/dL (6-20) 06/04/21 05:53 Creatinine 0.6 mg/dL (0.6-1.2) 06/04/21 05:53 Estimated GFR (MDRD) 137 (>89) 06/04/21 05:53 Glucose 122 mg/dL (70-100) H 06/04/21 05:53 Calcium 8.2 mg/dL (8.5-10.3) L 06/04/21 05:53 Ionized Calcium YES 06/01/21 07:22 Phosphorus 3.6 mg/dL (2.5-4.6) 06/03/21 05:05 Magnesium 1.5 mg/dL (1.7-2.8) L 06/04/21 05:53 Total Bilirubin 0.9 mg/dL (0.2-1.0) 06/01/21 07:22 AST 91 IU/L (10-42) H 06/01/21 07:22 ALT 36 IU/L (10-60) 06/01/21 07:22 Alkaline Phosphatase 88 IU/L (42-121) 06/01/21 07:22 C-Reactive Protein 23.4 mg/dL (0-1.0) H 06/04/21 10:50 C-React Prot High Sens 337.0 mg/L 06/03/21 05:34 Total Protein 6.1 g/dL (6.7-8.2) L 06/01/21 07:22 Albumin 2.0 g/dL (3.2-5.5) L 06/01/21 07:22 Globulin 4.1 g/dL (2.1-4.2) 06/01/21 07:22 Albumin/Globulin Ratio 0.5 (1.0-2.2) L 06/01/21 07:22 Triglycerides 130 mg/dL (-149) 06/03/21 05:05 Amylase 38 U/L (28-100) 05/31/21 13:10 Lipase 49 U/L (22-51) 05/31/21 13:10 Urine Color YELLOW 05/31/21 14:48 Urine Clarity CLEAR (CLEAR) 05/31/21 14:48 Urine pH 6.0 PH (5.0-7.5) 05/31/21 14:48 Ur Specific [place] <=1.005 (1.002-1.030) 05/31/21 14:48 Urine Protein NEGATIVE mg/dL (NEGATIVE) 05/31/21 14:48 Urine Glucose (UA) NEGATIVE mg/dL (NEGATIVE) 05/31/21 14:48 Urine Ketones NEGATIVE mg/dL (NEGATIVE) 05/31/21 14:48 Urine Occult Blood NEGATIVE (NEGATIVE) 05/31/21 14:48 Urine Nitrite NEGATIVE (NEGATIVE) 05/31/21 14:48 Urine Bilirubin NEGATIVE (NEGATIVE) 05/31/21 14:48 Urine Urobilinogen 0.2 (NORMAL) E.U./dL (NORMAL) 05/31/21 14:48 Ur Leukocyte Esterase NEGATIVE (NEGATIVE) 05/31/21 14:48 Ur Microscopic Review NOT INDICATED 05/31/21 14:48 Urine Culture Comments NOT INDICATED 05/31/21 14:48 Nasal Adenovirus (PCR) NOT DETECTED 05/31/21 15:59 Nasal B. parapertussis DNA (PCR) NOT DETECTED 05/31/21 15:59 Nasal Coronavir 229E PCR NOT DETECTED 05/31/21 15:59 Nasal Coronavir HKU1 PCR NOT DETECTED 05/31/21 15:59 Nasal Coronavir NL63 PCR NOT DETECTED 05/31/21 15:59 Nasal Coronavir OC43 PCR NOT DETECTED 05/31/21 15:59 Nasal Enterovir/Rhinovir PCR NOT DETECTED 05/31/21 15:59 Nasal Influenza B PCR NOT DETECTED 05/31/21 15:59 Nasal Influenza A PCR NOT DETECTED 05/31/21 15:59 Nasal Parainfluen 1 PCR NOT DETECTED 05/31/21 15:59 Nasal Parainfluen 2 PCR NOT DETECTED 05/31/21 15:59 Nasal Parainfluen 3 PCR NOT DETECTED 05/31/21 15:59 Nasal Parainfluen 4 PCR NOT DETECTED 05/31/21 15:59 Nasal RSV (PCR) NOT DETECTED 05/31/21 15:59 Nasal B.pertussis DNA PCR NOT DETECTED 05/31/21 15:59 Nasal C.pneumoniae (PCR) NOT DETECTED 05/31/21 15:59 Benjy Human Metapneumo PCR NOT DETECTED 05/31/21 15:59 Nasal M.pneumoniae (PCR) NOT DETECTED 05/31/21 15:59 Nasal SARS-CoV-2 (PCR) NOT DETECTED 05/31/21 15:59 Ethyl Alcohol 200.2 mg/dL 05/31/21 13:10 Blood Type O POSITIVE 05/31/21 13:10 Antibody Screen NEGATIVE 05/31/21 13:10 - Procedures Procedures: Procedures INSERTION OF INFUSION DEV INTO SUP [facility]NA CAVA, PERC APPROACH (05/24/21)
[2021-06-04] MEDS ORDERED: MAGNESIUM SULFATE 1 GM in SODIUM CHLORIDE 0.9% 50 ML IV ONE (18:10)
[2021-06-04] MEDS: PPN (CLINIMIX E 4.25/5) 2,000 ML with MULTIVITAMIN 10 ML, TRACE ELEMENTS 1 ML IV SCH ×3 (19:02)
[2021-06-04] MEDS: FAT EMULSION 20% 250 ML IV SCH (19:02)
[2021-06-04] MEDS: TAMSULOSIN 0.4 MG CAPSULE PO SCH (21:34)
[2021-06-05] MEDS: ACETAMINOPHEN 500 MG TABLET PO PRN ×3 (00:32→13:15)
[2021-06-05] MEDS: oxyCODONE 5 MG TABLET PO PRN ×2 (00:32→13:15)
[2021-06-05] MEDS: SODIUM CHLORIDE FLUSH 0.9% 10 ML SYRINGE IVP SCH ×3 (01:35→16:11)
[2021-06-05] MEDS: MEROPENEM 1 GM in SODIUM CHLORIDE 0.9% MINIBAG 100 ML IV SCH ×3 (05:51→20:49)
[2021-06-05 05:55] LABS: BASOPHILS % (AUTO) 0.5 %; EOSINOPHILS % (AUTO) 0.7 %; LYMPHOCYTES % (AUTO) 17.2 %; MEAN CORPUSCULAR HEMOGLOBIN 38.5 pg (27.0-31.0); MEAN CORPUSCULAR HGB CONC 32.9 g/dL (32.0-36.0); MEAN CORPUSCULAR VOLUME 117.3 fL (80.0-94.0); MEAN PLATELET VOLUME 9.8 fL (7.4-11.4); MONOCYTES % (AUTO) 16.6 %; NEUTROPHILS % (AUTO) 53.3 %; PLT - PLATELET COUNT 354 10^3/uL (130-450); RED BLOOD COUNT 1.79 10^6/uL (4.70-6.10); RED CELL DISTRIBUTION WIDTH 16.3 % (12.0-15.0); WHITE BLOOD COUNT 8.1 x10^3/uL (4.8-10.8)
[2021-06-05 06:21] LABS: CALCIUM 8.3 mg/dL (8.5-10.3); CREATININE 0.6 mg/dL (0.6-1.2); CRP - C-REACTIVE PROTEIN 19.7 mg/dL (0-1.0); HGB - HEMOGLOBIN 6.9 g/dL (14.0-18.0); MAGNESIUM 1.8 mg/dL (1.7-2.8); POTASSIUM 3.7 mmol/L (3.5-5.0)
[2021-06-05 06:22] LABS: ABNORMAL LYMPHS % (MANUAL) 0 %
[2021-06-05 06:33] LABS: BAND NEUTROPHILS % (MANUAL) 1 %; EOSINOPHILS # (MANUAL) 0.1 10^3/uL (0-0.7); LYMPHOCYTES % (MANUAL) 25 %; METAMYELOCYTES % (MANUAL) 1 %; MONOCYTES # (MANUAL) 1.4 10^3/uL (0.0-1.0); NEUTROPHILS # (MANUAL) 4.5 10^3/uL (1.5-6.6)
[2021-06-05 06:36] LABS: DIFFERENTIAL COMMENT MANUAL DIFFERENTIAL; PLATELET ESTIMATE, MANUAL NORMAL (130-450,000) (NORMAL); PLATELET MORPHOLOGY NORMAL APPEARANCE (NORMAL); WBC MORPHOLOGY (MULTIPLE) NORMAL APPEARANCE (NORMAL)
[2021-06-05] MEDS: ENOXAPARIN 40 MG/0.4 ML SYRINGE SUBQ SCH (08:29)
[2021-06-05] MEDS: BISMUTH SUBSALICYLATE 525 MG PO PRN (13:15)
--- NOTE | 2021-06-05 17:37 | PROVIDER PROGRESS NOTE ---
Assessment/Plan - Problem List (1) Necrotizing pancreatitis Assessment/Plan: Alcoholic pancreatitis/necrotizing pancreatitis with pseudocyst, by CT worse since last CT 05/24 . Fever and tachycardia >>started meropenem on 05/31 , afebrile since then CRP 339 and slowly improving His LR and PPN continue Spoke w/ GI on 06/02/21 who recommended -Antibiotics should be 10 - 14 days, currently on iv Meropenem, Doesnt need to be IV,can change to Augmentin plus Flagyl when taking po diet without pain (tolerating PO food, inflammatory markers improving), try low fat diet, but if he gets pain,then needs [place] feeds (delovered beyond Ligament of Treitz). GI did say pt certainly could worsen and pancreas service at would certainly accept such a patient (if beds open). Will continue clear liquids on Sunday, if tolerates w/ no pain, try low fat diet pureed on Sun For pain, will order what patient requests PO; oxycodone 5 mg q8h bhavik, taken with tylenol 500mg q8h bhavik and taken with peptobismol (from home) q8h (2) Pancreatic insufficiency Assessment/Plan: His diet will start with clear liquids and then bland pured foods for many days to see if he can tolerate this. He will be started on pancreatic enzymes as his diet advances (3) Anemia Assessment/Plan: And dropped under 7 today (6.9). It explains his extreme pallor noted yesterday. We will transfuse 1 unit PRBCs. Follow CBC daily (4) Alcohol abuse Assessment/Plan: Patient admitted to me yesterday "I really did myself in by being a heavy drinker since I was young". Social work consult was requested to re-try seeing him today and he again refused to be seen by the social and human services assistant, stated "I know what you're trying to do", he has family in psych depts He is getting thiamine and supplements parenterally There is no encephalopathy or Lactulose ordered. (5) Urinary retention Assessment/Plan: Added on meds for BPH since here (6) Hypomagnesemia Assessment/Plan: Due to his poor p.o. intake and alcohol abuse. Replace Follow Mg labs (7) Severe protein-calorie malnutrition Assessment/Plan: Related to his poor p.o. intake and alcoholism. He is getting supplements (8) Hypokalemia Assessment/Plan: Improved with replacement (9) Thrombocytosis Assessment/Plan: Resolved - Current Meds Current Meds: Current Medications Generic Name Dose Route Start Last Admin Trade Name Freq PRN Reason Stop Dose Admin Acetaminophen 500 mg 05/31/21 23:52 06/05/21 13:15 Acetaminophen 500 Mg Tablet PO 500 mg Q4HR PRN Administration Pain or Fever > 38C (100.4F) Calamine 1 applic 06/02/21 16:21 06/02/21 16:55 Calamine/Zinc Oxide 177 Ml Bottle TOP 1 applic PRN PRN Administration SKIN CARE Carboxymethylcellulose 1 drops 05/31/21 23:24 06/01/21 17:06 Carboxymethylcellulose Ophth Drops EACHEYE 1 drops PRN PRN Administration Dry Eye Diphenhydramine HCl 25 mg 06/03/21 14:58 06/04/21 23:49 Diphenhydramine 25 Mg Capsule PO 25 mg Q6H PRN Administration Allergy Symptoms Enoxaparin Sodium 40 mg 06/01/21 09:00 06/05/21 08:29 Enoxaparin 40 Mg/0.4 Ml Syringe SUBQ 40 mg DAILY BHAVIK Administration Meropenem 1 gm/ Sodium 100 mls @ 200 mls/hr 06/01/21 08:00 06/05/21 13:50 Chloride IV Infused Q8HR BHAVIK Infusion Fat Emulsion Intravenous 250 mls @ 21 mls/hr 06/02/21 19:00 06/05/21 07:52 Intralipid 20% IV Infused 1900 BHAVIK Infusion Multivitamins 10 ml/ TRACE 2,011 mls @ 83 mls/hr 06/02/21 19:00 06/05/21 12:51 ELEMENTS 1 ml/ Amino Acids/ IV 83 mls/hr Electrolytes/Dextrose 1900 BHAVIK Infusion Lactated Ringer's 1,000 mls @ 21 mls/hr 06/03/21 08:30 06/05/21 10:00 Lr IV 0 mls/hr .[id number] BHAVIK Infusion Pt Own Med ( 525 mg 06/02/21 10:48 06/05/21 13:15 Pepto Bismol 525 Mg) PO 525 mg Q4H PRN Administration Diarrhea Oxycodone HCl 5 mg 06/02/21 18:40 06/05/21 13:15 Oxycodone 5 Mg Tablet PO 5 mg Q4HR PRN Administration PAIN Sodium Chloride 10 ml 05/31/21 17:00 06/05/21 16:11 Sodium Chloride Flush 0.9% 10 Ml Syringe IVP Not Given 0100,0900,1700 BHAVIK Tamsulosin HCl 0.4 mg 06/03/21 21:00 06/04/21 21:34 Tamsulosin 0.4 Mg Capsule PO 0.4 mg QPM BHAVIK Administration - Lab Result Fish Bone Diagrams: 06/05/21 05:42 06/05/21 05:42 - Additional Planning My Orders: My Active Orders 06/05/21 08:26 Transfuse RBCs Leukoreduced [RC] .ONCE 06/06/21 05:00 BMP - BASIC METABOLIC PANEL [CHEM] DAILYLAB CBC - COMP BLD CT W/AUTO DIFF [HEME] DAILYLAB 06/07/21 05:00 BMP - BASIC METABOLIC PANEL [CHEM] DAILYLAB CBC - COMP BLD CT W/AUTO DIFF [HEME] DAILYLAB 06/08/21 05:00 BMP - BASIC METABOLIC PANEL [CHEM] DAILYLAB CBC - COMP BLD CT W/AUTO DIFF [HEME] DAILYLAB Subjective - Subjective Patient Reports: Feeling Better, Pain (Gets breakthrough pain and requests that we order scheduled oxycodone with Tylenol with Pepto-Bismol every 8 hours), Other (Clear liquids for the last 3 meals) Objective Vital Signs: Vital Signs - 24 hr 06/04/21 06/05/21 06/05/21 23:52 08:00 10:30 Temperature 37.1 C 37.2 C 36.9 C Heart Rate 105 H Heart Rate [ Brachial] Heart Rate [ 110 H Monitoring electrodes] Heart Rate [ 102 H Radial] Respiratory 18 20 17 Rate Blood Pressure 133/77 H Blood Pressure 139/75 H 124/80 [Left Brachial artery] O2 Saturation 98 95 06/05/21 06/05/21 06/05/21 10:35 10:50 12:55 Temperature 36.8 C 36.9 C 37 C Heart Rate 100 107 H 109 H Heart Rate [ Brachial] Heart Rate [ Monitoring electrodes] Heart Rate [ Radial] Respiratory 18 18 18 Rate Blood Pressure 130/76 142/72 H 129/75 Blood Pressure [Left Brachial artery] O2 Saturation 06/05/21 16:18 Temperature 37.1 C Heart Rate Heart Rate [ 104 H Brachial] Heart Rate [ Monitoring electrodes] Heart Rate [ Radial] Respiratory 19 Rate Blood Pressure Blood Pressure 144/88 H [Left Brachial artery] O2 Saturation 98 Oxygen O2 Source Room air I&O (Last 24 Hrs): Intake and Output Totals x24h 06/03/21 06/04/21 06/05/21 23:59 23:59 23:59 Intake Total 4082.4 4280.333 2350.30 Output Total 1075 625 200 Balance 3007.4 3655.333 2150.30 General: Alert, Oriented x3 HEENT: Mucous membr. moist/pink, Other (No longer pale) Neck: Supple Neuro: Alert, Non Focal Cardiovascular: Regular rate, No murmurs Respiratory: No respiratory distress, Breath sounds nml Abdomen: Soft, Other (Distended, non-tender, diminished bowel sounds) Extremities: No edema - Results Results: Laboratory Results WBC 8.1 x10^3/uL (4.8-10.8) 06/05/21 05:42 RBC 1.79 10^6/uL (4.70-6.10) L 06/05/21 05:42 Hgb 6.9 g/dL (14.0-18.0) L* 06/05/21 05:42 Hct 21.0 % (42.0-52.0) L 06/05/21 05:42 MCV 117.3 fL (80.0-94.0) H 06/05/21 05:42 MCH 38.5 pg (27.0-31.0) H 06/05/21 05:42 MCHC 32.9 g/dL (32.0-36.0) 06/05/21 05:42 RDW 16.3 % (12.0-15.0) H 06/05/21 05:42 Plt Count 354 10^3/uL (130-450) 06/05/21 05:42 MPV 9.8 fL (7.4-11.4) 06/05/21 05:42 Neut # (Auto) Not Reportable 06/05/21 05:42 Lymph # (Auto) Not Reportable 06/05/21 05:42 [place] # (Auto) Not Reportable 06/05/21 05:42 Eos # (Auto) Not Reportable 06/05/21 05:42 Baso # (Auto) Not Reportable 06/05/21 05:42 Absolute Nucleated RBC Not Reportable 06/05/21 05:42 Total Counted 100 06/05/21 05:42 Band Neuts % (Manual) 1 % (0-10) 06/05/21 05:42 Abnorm Lymph % (Manual) 0 % 06/05/21 05:42 Metamyelocytes % 1 % (-0) H 06/05/21 05:42 Myelocytes % 1 % (-0) H 06/03/21 05:34 Nucleated RBC % Not Reportable 06/05/21 05:42 Neutrophils # (Manual) 4.5 10^3/uL (1.5-6.6) 06/05/21 05:42 Lymphocytes # (Manual) 2.0 10^3/uL (1.5-3.5) 06/05/21 05:42 Monocytes # (Manual) 1.4 10^3/uL (0.0-1.0) H 06/05/21 05:42 Eosinophils # (Manual) 0.1 10^3/uL (0-0.7) 06/05/21 05:42 Basophils # (Manual) 0.0 10^3/uL (0-0.1) 06/05/21 05:42 Differential Comment MANUAL DIFFERENTIAL 06/05/21 05:42 Manual Slide Review Indicated 05/31/21 13:10 WBC Morphology NORMAL APPEARANCE (NORMAL) 06/05/21 05:42 Platelet Estimate NORMAL (130-450,000) (NORMAL) 06/05/21 05:42 Platelet Morphology NORMAL APPEARANCE (NORMAL) 06/05/21 05:42 RBC Morph Micro Appear 2+ HYPOCHROMASIA (NORMAL) 1+ POLYCHROMASIA (NORMAL) 1+ MACROCYTOSIS (NORMAL) 1+ ANISOCYTOSIS (NORMAL) 06/05/21 05:42 RBC Morph Micro Appear 2+ HYPOCHROMASIA (NORMAL) 1+ POLYCHROMASIA (NORMAL) 1+ MACROCYTOSIS (NORMAL) 1+ ANISOCYTOSIS (NORMAL) 06/05/21 05:42 RBC Morph Micro Appear 2+ HYPOCHROMASIA (NORMAL) 1+ POLYCHROMASIA (NORMAL) 1+ MACROCYTOSIS (NORMAL) 1+ ANISOCYTOSIS (NORMAL) 06/05/21 05:42 RBC Morph Micro Appear 2+ HYPOCHROMASIA (NORMAL) 1+ POLYCHROMASIA (NORMAL) 1+ MACROCYTOSIS (NORMAL) 1+ ANISOCYTOSIS (NORMAL) 06/05/21 05:42 PT 14.1 secs (9.9-12.6) H 05/31/21 13:55 INR 1.3 (0.8-1.2) H 05/31/21 13:55 APTT 23.7 secs (24.9-33.3) L 05/31/21 13:55 VBG pH 7.424 (7.31-7.41) H 06/01/21 07:22 Ionized Calcium 1.06 mmol/L (1.15-1.33) L 06/01/21 07:22 Sodium 138 mmol/L (135-145) 06/05/21 05:42 Potassium 3.7 mmol/L (3.5-5.0) 06/05/21 05:42 Chloride 102 mmol/L (101-111) 06/05/21 05:42 Carbon Dioxide 26 mmol/L (21-32) 06/05/21 05:42 Anion Gap 10.0 (6-13) 06/05/21 05:42 BUN 8 mg/dL (6-20) 06/05/21 05:42 Creatinine 0.6 mg/dL (0.6-1.2) 06/05/21 05:42 Estimated GFR (MDRD) 137 (>89) 06/05/21 05:42 Glucose 128 mg/dL (70-100) H 06/05/21 05:42 Calcium 8.3 mg/dL (8.5-10.3) L 06/05/21 05:42 Ionized Calcium YES 06/01/21 07:22 Phosphorus 3.6 mg/dL (2.5-4.6) 06/03/21 05:05 Magnesium 1.8 mg/dL (1.7-2.8) 06/05/21 05:42 Total Bilirubin 0.9 mg/dL (0.2-1.0) 06/01/21 07:22 AST 91 IU/L (10-42) H 06/01/21 07:22 ALT 36 IU/L (10-60) 06/01/21 07:22 Alkaline Phosphatase 88 IU/L (42-121) 06/01/21 07:22 C-Reactive Protein 19.7 mg/dL (0-1.0) H 06/05/21 05:42 C-React Prot High Sens 337.0 mg/L 06/03/21 05:34 Total Protein 6.1 g/dL (6.7-8.2) L 06/01/21 07:22 Albumin 2.0 g/dL (3.2-5.5) L 06/01/21 07:22 Globulin 4.1 g/dL (2.1-4.2) 06/01/21 07:22 Albumin/Globulin Ratio 0.5 (1.0-2.2) L 06/01/21 07:22 Triglycerides 130 mg/dL (-149) 06/03/21 05:05 Amylase 38 U/L (28-100) 05/31/21 13:10 Lipase 49 U/L (22-51) 05/31/21 13:10 Urine Color YELLOW 05/31/21 14:48 Urine Clarity CLEAR (CLEAR) 05/31/21 14:48 Urine pH 6.0 PH (5.0-7.5) 05/31/21 14:48 Ur Specific [place] <=1.005 (1.002-1.030) 05/31/21 14:48 Urine Protein NEGATIVE mg/dL (NEGATIVE) 05/31/21 14:48 Urine Glucose (UA) NEGATIVE mg/dL (NEGATIVE) 05/31/21 14:48 Urine Ketones NEGATIVE mg/dL (NEGATIVE) 05/31/21 14:48 Urine Occult Blood NEGATIVE (NEGATIVE) 05/31/21 14:48 Urine Nitrite NEGATIVE (NEGATIVE) 05/31/21 14:48 Urine Bilirubin NEGATIVE (NEGATIVE) 05/31/21 14:48 Urine Urobilinogen 0.2 (NORMAL) E.U./dL (NORMAL) 05/31/21 14:48 Ur Leukocyte Esterase NEGATIVE (NEGATIVE) 05/31/21 14:48 Ur Microscopic Review NOT INDICATED 05/31/21 14:48 Urine Culture Comments NOT INDICATED 05/31/21 14:48 Nasal Adenovirus (PCR) NOT DETECTED 05/31/21 15:59 Nasal B. parapertussis DNA (PCR) NOT DETECTED 05/31/21 15:59 Nasal Coronavir 229E PCR NOT DETECTED 05/31/21 15:59 Nasal Coronavir HKU1 PCR NOT DETECTED 05/31/21 15:59 Nasal Coronavir NL63 PCR NOT DETECTED 05/31/21 15:59 Nasal Coronavir OC43 PCR NOT DETECTED 05/31/21 15:59 Nasal Enterovir/Rhinovir PCR NOT DETECTED 05/31/21 15:59 Nasal Influenza B PCR NOT DETECTED 05/31/21 15:59 Nasal Influenza A PCR NOT DETECTED 05/31/21 15:59 Nasal Parainfluen 1 PCR NOT DETECTED 05/31/21 15:59 Nasal Parainfluen 2 PCR NOT DETECTED 05/31/21 15:59 Nasal Parainfluen 3 PCR NOT DETECTED 05/31/21 15:59 Nasal Parainfluen 4 PCR NOT DETECTED 05/31/21 15:59 Nasal RSV (PCR) NOT DETECTED 05/31/21 15:59 Nasal B.pertussis DNA PCR NOT DETECTED 05/31/21 15:59 Nasal C.pneumoniae (PCR) NOT DETECTED 05/31/21 15:59 Benjy Human Metapneumo PCR NOT DETECTED 05/31/21 15:59 Nasal M.pneumoniae (PCR) NOT DETECTED 05/31/21 15:59 Nasal SARS-CoV-2 (PCR) NOT DETECTED 05/31/21 15:59 Ethyl Alcohol 200.2 mg/dL 05/31/21 13:10 Blood Type O POSITIVE 06/05/21 09:14 Antibody Screen NEGATIVE 06/05/21 09:14 Crossmatch IS Only See Detail 06/05/21 09:14 - Procedures Procedures: Procedures INSERTION OF INFUSION DEV INTO SUP VENA CAVA, PERC APPROACH (05/24/21)
[2021-06-05] MEDS ORDERED: oxyCODONE 5 MG TABLET PO SCH (18:00)
[2021-06-05] MEDS: BISMUTH SUBSALICYLATE 525 MG PO SCH (18:34)
[2021-06-05] MEDS: ACETAMINOPHEN 500 MG TABLET PO SCH (18:35)
[2021-06-05] MEDS: FAT EMULSION 20% 250 ML IV SCH (18:40)
[2021-06-05] MEDS: PPN (CLINIMIX E 4.25/5) 2,000 ML with MULTIVITAMIN 10 ML, TRACE ELEMENTS 1 ML IV SCH ×3 (18:40)
[2021-06-05] MEDS: TAMSULOSIN 0.4 MG CAPSULE PO SCH ×2 (20:33→20:34)
[2021-06-05] MEDS: diphenhydrAMINE 25 MG CAPSULE PO PRN (20:48)
[2021-06-06] MEDS: BISMUTH SUBSALICYLATE 525 MG PO SCH ×2 (01:12→09:46)
[2021-06-06] MEDS: ACETAMINOPHEN 500 MG TABLET PO SCH ×3 (01:18→19:02)
[2021-06-06] MEDS: oxyCODONE 5 MG TABLET PO SCH ×3 (01:18→18:32)
[2021-06-06] MEDS: SODIUM CHLORIDE FLUSH 0.9% 10 ML SYRINGE IVP SCH ×3 (01:19→17:45)
[2021-06-06 05:39] LABS: BASOPHILS % (AUTO) 0.6 %; EOSINOPHILS % (AUTO) 0.9 %; HCT - HEMATOCRIT 24.4 % (42.0-52.0); HGB - HEMOGLOBIN 8.2 g/dL (14.0-18.0); LYMPHOCYTES % (AUTO) 14.5 %; MEAN CORPUSCULAR HEMOGLOBIN 37.1 pg (27.0-31.0); MEAN CORPUSCULAR HGB CONC 33.6 g/dL (32.0-36.0); MEAN CORPUSCULAR VOLUME 110.4 fL (80.0-94.0); MEAN PLATELET VOLUME 9.7 fL (7.4-11.4); MONOCYTES % (AUTO) 15.8 %; NEUTROPHILS % (AUTO) 53.3 %; PLT - PLATELET COUNT 371 10^3/uL (130-450); RED BLOOD COUNT 2.21 10^6/uL (4.70-6.10); WHITE BLOOD COUNT 8.8 x10^3/uL (4.8-10.8)
[2021-06-06] MEDS: MEROPENEM 1 GM in SODIUM CHLORIDE 0.9% MINIBAG 100 ML IV SCH ×2 (05:44→15:00)
[2021-06-06 05:49] LABS: ABNORMAL LYMPHS % (MANUAL) 0 %; CALCIUM 8.4 mg/dL (8.5-10.3); CREATININE 0.6 mg/dL (0.6-1.2); POTASSIUM 3.8 mmol/L (3.5-5.0)
[2021-06-06 06:30] LABS: BAND NEUTROPHILS % (MANUAL) 3 %; LYMPHOCYTES # (MANUAL) 2.5 10^3/uL (1.5-3.5); LYMPHOCYTES % (MANUAL) 28 %; METAMYELOCYTES % (MANUAL) 6 %; MONOCYTES # (MANUAL) 0.6 10^3/uL (0.0-1.0); MYELOCYTES % (MANUAL) 6 %; NEUTROPHILS # (MANUAL) 4.7 10^3/uL (1.5-6.6); PLATELET ESTIMATE, MANUAL NORMAL (130-450,000) (NORMAL); RBC MORPHOLOGY (MULTIPLE) NORMAL APPEARANCE (NORMAL)
[2021-06-06 06:31] LABS: DIFFERENTIAL COMMENT MANUAL DIFFERENTIAL
[2021-06-06] MEDS: ENOXAPARIN 40 MG/0.4 ML SYRINGE SUBQ SCH (09:00)
[2021-06-06] MEDS: ACETAMINOPHEN 500 MG TABLET PO PRN (10:20)
[2021-06-06] MEDS: LIPASE/PROTEASE/AMYLASE CAPSULE PO SCH (17:45)
[2021-06-06] MEDS: PPN (CLINIMIX E 4.25/5) 2,000 ML with MULTIVITAMIN 10 ML, TRACE ELEMENTS 1 ML IV SCH ×3 (18:49)
[2021-06-06] MEDS: FAT EMULSION 20% 250 ML IV SCH (18:49)
--- NOTE | 2021-06-06 20:27 | PROVIDER PROGRESS NOTE ---
Assessment/Plan - Problem List (1) Necrotizing pancreatitis Assessment/Plan: Alcoholic pancreatitis/necrotizing pancreatitis with pseudocyst, by CT worse since last CT 05/24 . Fever and tachycardia >>started meropenem on 05/31 , afebrile since then CRP 339 and slowly improving His LR and PPN continue until he tolerates purred food, which started today (yesterday was clears). Spoke w/ GI on 06/02/21 who recommended -Antibiotics should be 10 - 14 days, currently on iv Meropenem, Doesnt need to be IV,can change to Augmentin plus Flagyl when taking po diet without pain (tolerating PO food, inflammatory markers improving), try low fat diet, but if he gets pain,then needs [place] feeds (delivered beyond Ligament of [place]). GI did say pt certainly could worsen and pancreas service at would certainly accept such a patient (if beds open). Repeat imaging of the pancreas in 4 weeks from the last imaging, PCP needs to arrange. Will switch from meropenem to Augmentin plus Flagyl starting tomorrow For pain, will order what patient requested PO; oxycodone 5 mg q8h bhavik, taken with tylenol 500mg q8h bhavik and taken with peptobismol (from home) q8h (2) Pancreatic insufficiency Assessment/Plan: Pancreatic enzymes will be started now, as he starts a pured diet (3) Anemia Assessment/Plan: His hemoglobin got as low as 6.9 during this hospitalization, very likely from hemodilution. Yesterday he had a transfusion and felt much better and was less pale. Follow CBC daily. Transfuse if hemoglobin again under 7 (4) Alcohol abuse Assessment/Plan: He admitted to me that he "did himself in by drinking so much for so many years". He will not speak to social work regarding his alcohol abuse, has refused their visits twice He is getting thiamine and folate supplements and he is additives There are no signs of hepatic encephalopathy (5) Urinary retention Assessment/Plan: New meds for BPH were started during this hospitalization (6) Hypomagnesemia Assessment/Plan: Replace. Follow Mag intermittently (7) Severe protein-calorie malnutrition Assessment/Plan: As per history. Protein supplements have been ordered (8) Hypokalemia Assessment/Plan: Resolved (9) Thrombocytosis Assessment/Plan: Resolved - Current Meds Current Meds: Current Medications Generic Name Dose Route Start Last Admin Trade Name Freq PRN Reason Stop Dose Admin Acetaminophen 500 mg 06/05/21 18:00 06/06/21 19:02 Acetaminophen 500 Mg Tablet PO 500 mg Q8H BHAVIK Administration Lipase/Protease/Amylase 3 cap 06/06/21 17:00 06/06/21 17:45 Lipase/Protease/Amylase Capsule PO 3 cap TIDWM BHAVIK Administration Calamine 1 applic 06/02/21 16:21 06/02/21 16:55 Calamine/Zinc Oxide 177 Ml Bottle TOP 1 applic PRN PRN Administration SKIN CARE Carboxymethylcellulose 1 drops 05/31/21 23:24 06/01/21 17:06 Carboxymethylcellulose Ophth Drops EACHEYE 1 drops PRN PRN Administration Dry Eye Diphenhydramine HCl 25 mg 06/03/21 14:58 06/05/21 20:48 Diphenhydramine 25 Mg Capsule PO 25 mg Q6H PRN Administration Allergy Symptoms Enoxaparin Sodium 40 mg 06/01/21 09:00 06/06/21 09:00 Enoxaparin 40 Mg/0.4 Ml Syringe SUBQ 40 mg DAILY BHAVIK Administration Meropenem 1 gm/ Sodium 100 mls @ 200 mls/hr 06/01/21 08:00 06/06/21 15:00 Chloride IV 200 mls/hr Q8HR BHAVIK Administration Fat Emulsion Intravenous 250 mls @ 21 mls/hr 06/02/21 19:00 06/06/21 18:49 Intralipid 20% IV 21 mls/hr 1900 BHAVIK Administration Multivitamins 10 ml/ TRACE 2,011 mls @ 83 mls/hr 06/02/21 19:00 06/06/21 18:49 ELEMENTS 1 ml/ Amino Acids/ IV 83 mls/hr Electrolytes/Dextrose 1900 BHAVIK Administration Lactated Ringer's 1,000 mls @ 21 mls/hr 06/03/21 08:30 06/05/21 21:24 Lr IV 21 mls/hr .[id number] BHAVIK Infusion Nf: *Pt Own Med*( 525 mg 06/05/21 18:00 06/06/21 09:46 Pepto Bismol 525 Mg) PO 525 mg Q8H BHAVIK Administration Oxycodone HCl 5 mg 06/06/21 02:00 06/06/21 18:32 Oxycodone 5 Mg Tablet PO 5 mg Q8H BHAVIK Administration Sodium Chloride 10 ml 05/31/21 15:53 06/06/21 05:37 Sodium Chloride Flush 0.9% 10 Ml Syringe IVP 10 ml PRN PRN Administration NEEDED PER PROVIDER ORDERS Sodium Chloride 10 ml 05/31/21 17:00 06/06/21 17:45 Sodium Chloride Flush 0.9% 10 Ml Syringe IVP 10 ml 0100,0900,1700 BHAVIK Administration Tamsulosin HCl 0.4 mg 06/03/21 21:00 06/05/21 20:34 Tamsulosin 0.4 Mg Capsule PO Not Given QPM BHAVIK - Lab Result Fish Bone Diagrams: 06/06/21 05:16 06/06/21 05:16 - Additional Planning My Orders: My Active Orders 06/06/21 02:00 oxyCODONE [Roxicodone] 5 mg PO Q8H 06/06/21 08:55 Echo Transthoracic Complete [ECHO] Routine 06/06/21 Lunch Dysphagia Puree Diet [DIET] 06/06/21 17:00 Lipase/Protease/Amylase [Pancrelipase Dr 5,000/17,000/27,000 Custodial] 3 cap PO TIDWM 06/07/21 05:00 BMP - BASIC METABOLIC PANEL [CHEM] DAILYLAB CBC - COMP BLD CT W/AUTO DIFF [HEME] DAILYLAB MAGNESIUM [CHEM] DAILYLAB PREALBUMIN [CHEM] Routine TRIGLYCERIDES [CHEM] Routine 06/07/21 Lunch DIET [Soft (Low Fiber) Diet] [DIET] 06/08/21 05:00 BMP - BASIC METABOLIC PANEL [CHEM] DAILYLAB CBC - COMP BLD CT W/AUTO DIFF [HEME] DAILYLAB Subjective - Subjective Patient Reports: Feeling Better, Other (No abd pain when clears advanced to puree today.) Objective Vital Signs: Vital Signs - 24 hr 06/06/21 06/06/21 06/06/21 01:13 08:25 16:00 Temperature 37.0 C 36.4 C L 37.2 C Heart Rate [ 110 H 102 H 106 H Brachial] Respiratory 18 18 18 Rate Blood Pressure 155/81 H 145/87 H 154/84 H [Left Brachial artery] O2 Saturation 98 98 96 Oxygen O2 Source Room air I&O (Last 24 Hrs): Intake and Output Totals x24h 06/04/21 06/05/21 06/06/21 23:59 23:59 23:59 Intake Total 4280.333 3376.633 2594.45 Output Total 625 200 125 Balance 3655.333 3176.633 2469.45 General: Alert, Oriented x3 HEENT: Mucous membr. moist/pink, Other (Pale) Neck: Supple Neuro: Alert, Non Focal Cardiovascular: Regular rate Respiratory: No respiratory distress Abdomen: Other (Distended, non-tender) Extremities: Other (Papular itchy rash of legs) - Results Results: Laboratory Results WBC 8.8 x10^3/uL (4.8-10.8) 06/06/21 05:16 RBC 2.21 10^6/uL (4.70-6.10) L 06/06/21 05:16 Hgb 8.2 g/dL (14.0-18.0) L 06/06/21 05:16 Hct 24.4 % (42.0-52.0) L 06/06/21 05:16 MCV 110.4 fL (80.0-94.0) H 06/06/21 05:16 MCH 37.1 pg (27.0-31.0) H 06/06/21 05:16 MCHC 33.6 g/dL (32.0-36.0) 06/06/21 05:16 RDW 20.0 % (12.0-15.0) H 06/06/21 05:16 Plt Count 371 10^3/uL (130-450) 06/06/21 05:16 MPV 9.7 fL (7.4-11.4) 06/06/21 05:16 Neut # (Auto) Not Reportable 06/06/21 05:16 Lymph # (Auto) Not Reportable 06/06/21 05:16 [place] # (Auto) Not Reportable 06/06/21 05:16 Eos # (Auto) Not Reportable 06/06/21 05:16 Baso # (Auto) Not Reportable 06/06/21 05:16 Absolute Nucleated RBC Not Reportable 06/06/21 05:16 Total Counted 100 06/06/21 05:16 Band Neuts % (Manual) 3 % (0-10) 06/06/21 05:16 Abnorm Lymph % (Manual) 0 % 06/06/21 05:16 Metamyelocytes % 6 % (-0) H 06/06/21 05:16 Myelocytes % 6 % (-0) H 06/06/21 05:16 Nucleated RBC % Not Reportable 06/06/21 05:16 Neutrophils # (Manual) 4.7 10^3/uL (1.5-6.6) 06/06/21 05:16 Lymphocytes # (Manual) 2.5 10^3/uL (1.5-3.5) 06/06/21 05:16 Monocytes # (Manual) 0.6 10^3/uL (0.0-1.0) 06/06/21 05:16 Eosinophils # (Manual) 0.0 10^3/uL (0-0.7) 06/06/21 05:16 Basophils # (Manual) 0.0 10^3/uL (0-0.1) 06/06/21 05:16 Differential Comment MANUAL DIFFERENTIAL 06/06/21 05:16 Manual Slide Review Indicated 05/31/21 13:10 WBC Morphology NORMAL APPEARANCE (NORMAL) 06/05/21 05:42 Platelet Estimate NORMAL (130-450,000) (NORMAL) 06/06/21 05:16 Platelet Morphology NORMAL APPEARANCE (NORMAL) 06/05/21 05:42 RBC Morph Micro Appear NORMAL APPEARANCE (NORMAL) 06/06/21 05:16 PT 14.1 secs (9.9-12.6) H 05/31/21 13:55 INR 1.3 (0.8-1.2) H 05/31/21 13:55 APTT 23.7 secs (24.9-33.3) L 05/31/21 13:55 VBG pH 7.424 (7.31-7.41) H 06/01/21 07:22 Ionized Calcium 1.06 mmol/L (1.15-1.33) L 06/01/21 07:22 Sodium 135 mmol/L (135-145) 06/06/21 05:16 Potassium 3.8 mmol/L (3.5-5.0) 06/06/21 05:16 Chloride 102 mmol/L (101-111) 06/06/21 05:16 Carbon Dioxide 25 mmol/L (21-32) 06/06/21 05:16 Anion Gap 8.0 (6-13) 06/06/21 05:16 BUN 10 mg/dL (6-20) 06/06/21 05:16 Creatinine 0.6 mg/dL (0.6-1.2) 06/06/21 05:16 Estimated GFR (MDRD) 137 (>89) 06/06/21 05:16 Glucose 124 mg/dL (70-100) H 06/06/21 05:16 Calcium 8.4 mg/dL (8.5-10.3) L 06/06/21 05:16 Ionized Calcium YES 06/01/21 07:22 Phosphorus 3.6 mg/dL (2.5-4.6) 06/03/21 05:05 Magnesium 2.1 mg/dL (1.7-2.8) 06/06/21 05:16 Total Bilirubin 0.9 mg/dL (0.2-1.0) 06/01/21 07:22 AST 91 IU/L (10-42) H 06/01/21 07:22 ALT 36 IU/L (10-60) 06/01/21 07:22 Alkaline Phosphatase 88 IU/L (42-121) 06/01/21 07:22 C-Reactive Protein 19.7 mg/dL (0-1.0) H 06/05/21 05:42 C-React Prot High Sens 337.0 mg/L 06/03/21 05:34 Total Protein 6.1 g/dL (6.7-8.2) L 06/01/21 07:22 Albumin 2.0 g/dL (3.2-5.5) L 06/01/21 07:22 Globulin 4.1 g/dL (2.1-4.2) 06/01/21 07:22 Albumin/Globulin Ratio 0.5 (1.0-2.2) L 06/01/21 07:22 Triglycerides 130 mg/dL (-149) 06/03/21 05:05 Amylase 38 U/L (28-100) 05/31/21 13:10 Lipase 49 U/L (22-51) 05/31/21 13:10 Urine Color YELLOW 05/31/21 14:48 Urine Clarity CLEAR (CLEAR) 05/31/21 14:48 Urine pH 6.0 PH (5.0-7.5) 05/31/21 14:48 Ur Specific [place] <=1.005 (1.002-1.030) 05/31/21 14:48 Urine Protein NEGATIVE mg/dL (NEGATIVE) 05/31/21 14:48 Urine Glucose (UA) NEGATIVE mg/dL (NEGATIVE) 05/31/21 14:48 Urine Ketones NEGATIVE mg/dL (NEGATIVE) 05/31/21 14:48 Urine Occult Blood NEGATIVE (NEGATIVE) 05/31/21 14:48 Urine Nitrite NEGATIVE (NEGATIVE) 05/31/21 14:48 Urine Bilirubin NEGATIVE (NEGATIVE) 05/31/21 14:48 Urine Urobilinogen 0.2 (NORMAL) E.U./dL (NORMAL) 05/31/21 14:48 Ur Leukocyte Esterase NEGATIVE (NEGATIVE) 05/31/21 14:48 Ur Microscopic Review NOT INDICATED 05/31/21 14:48 Urine Culture Comments NOT INDICATED 05/31/21 14:48 Nasal Adenovirus (PCR) NOT DETECTED 05/31/21 15:59 Nasal B. parapertussis DNA (PCR) NOT DETECTED 05/31/21 15:59 Nasal Coronavir 229E PCR NOT DETECTED 05/31/21 15:59 Nasal Coronavir HKU1 PCR NOT DETECTED 05/31/21 15:59 Nasal Coronavir NL63 PCR NOT DETECTED 05/31/21 15:59 Nasal Coronavir OC43 PCR NOT DETECTED 05/31/21 15:59 Nasal Enterovir/Rhinovir PCR NOT DETECTED 05/31/21 15:59 Nasal Influenza B PCR NOT DETECTED 05/31/21 15:59 Nasal Influenza A PCR NOT DETECTED 05/31/21 15:59 Nasal Parainfluen 1 PCR NOT DETECTED 05/31/21 15:59 Nasal Parainfluen 2 PCR NOT DETECTED 05/31/21 15:59 Nasal Parainfluen 3 PCR NOT DETECTED 05/31/21 15:59 Nasal Parainfluen 4 PCR NOT DETECTED 05/31/21 15:59 Nasal RSV (PCR) NOT DETECTED 05/31/21 15:59 Nasal B.pertussis DNA PCR NOT DETECTED 05/31/21 15:59 Nasal C.pneumoniae (PCR) NOT DETECTED 05/31/21 15:59 Benjy Human Metapneumo PCR NOT DETECTED 05/31/21 15:59 Nasal M.pneumoniae (PCR) NOT DETECTED 05/31/21 15:59 Nasal SARS-CoV-2 (PCR) NOT DETECTED 05/31/21 15:59 Ethyl Alcohol 200.2 mg/dL 05/31/21 13:10 Blood Type O POSITIVE 06/05/21 09:14 Antibody Screen NEGATIVE 06/05/21 09:14 Crossmatch IS Only See Detail 06/05/21 09:14 - Procedures Procedures: Procedures INSERTION OF INFUSION DEV INTO SUP VENA CAVA, PERC APPROACH (05/24/21)
[2021-06-06] MEDS: TAMSULOSIN 0.4 MG CAPSULE PO SCH (21:57)
[2021-06-07] MEDS: ACETAMINOPHEN 500 MG TABLET PO SCH ×4 (02:04→20:42)
[2021-06-07] MEDS: SODIUM CHLORIDE FLUSH 0.9% 10 ML SYRINGE IVP SCH ×3 (02:04→17:43)
[2021-06-07] MEDS: oxyCODONE 5 MG TABLET PO SCH ×4 (02:05→20:43)
[2021-06-07] MEDS: BISMUTH SUBSALICYLATE 525 MG PO SCH ×4 (02:06→17:46)
[2021-06-07 06:06] LABS: BASOPHILS % (AUTO) 0.7 %; EOSINOPHILS % (AUTO) 1.1 %; HCT - HEMATOCRIT 25.8 % (42.0-52.0); HGB - HEMOGLOBIN 8.3 g/dL (14.0-18.0); LYMPHOCYTES % (AUTO) 17.5 %; MEAN CORPUSCULAR HEMOGLOBIN 36.6 pg (27.0-31.0); MEAN CORPUSCULAR HGB CONC 32.2 g/dL (32.0-36.0); MEAN CORPUSCULAR VOLUME 113.7 fL (80.0-94.0); MEAN PLATELET VOLUME 9.7 fL (7.4-11.4); MONOCYTES % (AUTO) 17.1 %; PLT - PLATELET COUNT 469 10^3/uL (130-450); RED BLOOD COUNT 2.27 10^6/uL (4.70-6.10); RED CELL DISTRIBUTION WIDTH 18.6 % (12.0-15.0); WHITE BLOOD COUNT 8.3 x10^3/uL (4.8-10.8)
[2021-06-07 06:22] LABS: CALCIUM 8.8 mg/dL (8.5-10.3); CREATININE 0.5 mg/dL (0.6-1.2)
[2021-06-07 06:31] LABS: ABNORMAL LYMPHS % (MANUAL) 0 %
[2021-06-07 06:44] LABS: BAND NEUTROPHILS % (MANUAL) 5 %; BASOPHILS # (MANUAL) 0.1 10^3/uL (0-0.1); BASOPHILS % (MANUAL) 1 %; DIFFERENTIAL COMMENT MANUAL DIFFERENTIAL; LYMPHOCYTES # (MANUAL) 1.8 10^3/uL (1.5-3.5); LYMPHOCYTES % (MANUAL) 22 %; METAMYELOCYTES % (MANUAL) 3 %; MONOCYTES # (MANUAL) 0.8 10^3/uL (0.0-1.0); MYELOCYTES % (MANUAL) 4 %; NUCLEATED RBC (MANUAL) 1 %; RBC MORPHOLOGY (MULTIPLE) 1+ MACROCYTOSIS (NORMAL)
--- NOTE | 2021-06-07 07:45 | PROVIDER PROGRESS NOTE ---
Subjective - Prog Note Date Prog Note Date: 06/07/21 - Subjective Subjective: Left AMA 05/26 after being admitted for pancreatitis. Came back w diarrhea, worse pain, still drinking. CT was worse w enlarging pseudocysts. WBC 12 on admit. Has had to be transfused this admit for Hgb 6 and is stable at 8 for today and yesterday. He has no fever and WBC is normal. He has been started on clear liquid then puree then mechanical soft and has no increase of pain. Pain 5-7/10 is in the LLQ and hurts when he moves or presses on it. Last BM 06/05 and he is having flatus. He feels like the mix of oxycodone, pepto help control the pain. His main complaint is itching. He shows me numerous small punctate lesions on his legs where he "scratched myself raw". The other place heitches is his back and he uses his back assistance representative for that. Hates Benadryl since it makes him "loopy" Current Medications - Current Medications Current Medications: Active Medications Acetaminophen (Acetaminophen 500 Mg Tablet) 500 mg PO Q8H [facility] Last Admin: 06/07/21 02:04 Dose: 500 mg Documented by: Amoxicillin/Clavulanate Potassium (Amox/Clav 875 Mg/125 Mg Tablet) 1 tab PO BID [facility] Lipase/Protease/Amylase (Lipase/Protease/Amylase Capsule) 3 cap PO TIDWM [facility] Last Admin: 06/06/21 17:45 Dose: 3 cap Documented by: Calamine (Calamine/Zinc Oxide 177 Ml Bottle) 1 applic TOP PRN PRN PRN Reason: SKIN CARE Last Admin: 06/02/21 16:55 Dose: 1 applic Documented by: Carboxymethylcellulose (Carboxymethylcellulose Ophth Drops) 1 drops EACHEYE PRN PRN PRN Reason: Dry Eye Last Admin: 06/01/21 17:06 Dose: 1 drops Documented by: Diphenhydramine HCl (Diphenhydramine 25 Mg Capsule) 25 mg PO Q6H PRN PRN Reason: Allergy Symptoms Last Admin: 06/05/21 20:48 Dose: 25 mg Documented by: Enoxaparin Sodium (Enoxaparin 40 Mg/0.4 Ml Syringe) 40 mg SUBQ DAILY [facility] Last Admin: 06/06/21 09:00 Dose: 40 mg Documented by: Fat Emulsion Intravenous (Intralipid 20%) 250 mls @ 21 mls/hr IV 1900 [facility] Last Infusion: 06/07/21 06:48 Dose: Infused Documented by: Multivitamins 10 ml/ TRACE ELEMENTS 1 ml/ Amino Acids/Electrolytes/Dextrose 2,011 mls @ 83 mls/hr IV 1900 [facility] Last Admin: 06/06/21 18:49 Dose: 83 mls/hr Documented by: Lactated Ringer's (Lr) 1,000 mls @ 21 mls/hr IV .[id number] [facility] Last Infusion: 06/06/21 22:27 Dose: Infused Documented by: Metronidazole (Metronidazole 250 Mg Tablet) 500 mg PO Q8H [facility] Nf: *Pt Own Med*( (Pepto Bismol 525 Mg)) 525 mg PO Q8H [facility] Last Admin: 06/07/21 02:12 Dose: Not Given Documented by: Ondansetron HCl (Ondansetron 4 Mg/2 Ml Vial) 4 mg IVP Q6HR PRN PRN Reason: Nausea / Vomiting Oxycodone HCl (Oxycodone 5 Mg Tablet) 5 mg PO Q8H [facility] Last Admin: 06/07/21 02:05 Dose: 5 mg Documented by: Sodium Chloride (Sodium Chloride Flush 0.9% 10 Ml Syringe) 10 ml IVP PRN PRN PRN Reason: NEEDED PER PROVIDER ORDERS Last Admin: 06/06/21 05:37 Dose: 10 ml Documented by: Sodium Chloride (Sodium Chloride Flush 0.9% 10 Ml Syringe) 10 ml IVP 0100,0900,1700 [facility] Last Admin: 06/07/21 02:04 Dose: 10 ml Documented by: Tamsulosin HCl (Tamsulosin 0.4 Mg Capsule) 0.4 mg PO QPM [facility] Last Admin: 06/06/21 21:57 Dose: 0.4 mg Documented by: Lisinopril [Zestril] 40 mg PO DAILY 05/24/21 allopurinoL [Allopurinol] 400 mg PO DAILY 05/24/21 amLODIPine [Norvasc] 5 mg PO DAILY 05/24/21 Objective - Vital Signs/Intake & Output Reviewed Vital Signs: Yes Intake & Output: Intake & Output 06/04/21 06/05/21 06/06/21 06/07/21 23:59 23:59 23:59 23:59 Intake Total 4280.333 3376.633 3026.10 250 Output Total 625 200 525 400 Balance 3655.333 3176.633 2501.10 -150 - Objective General Appearance: positive: Alert, Other (thin older appearing than state age white male) Eyes Bilateral: positive: PERRL, EOMI ENT: positive: No signs of dehydration Neck: positive: No JVD. negative: Stiff neck Respiratory: positive: No respiratory distress. negative: Wheezes, Rales, Rhonchi Cardiovascular: positive: Regular rate & rhythm, Systolic murmur. negative: Gallop/S4, Friction rub Abdomen: positive: No organomegaly, Nml bowel sounds, No distention, Tenderness (LLQ and L mid flank). negative: Guarding, Rebound Skin: positive: Warm, Dry, Pallor, Other (multiple lesions where is scratched his legs and blood on his finger nails) Extremities: positive: Full ROM, No pedal edema, Other (wasted muscle mass of arms and legs) Neurologic/Psychiatric: positive: Oriented x3, CN's nml (2-12), Motor nml - Lab Results Fish Bones: 06/07/21 05:32 06/07/21 05:32 Other Labs: Lab Results x24hrs 06/07/21 06/07/21 06/06/21 Range/Units 05:32 05:32 05:16 WBC 8.3 (4.8-10.8) x10^3/uL RBC 2.27 L (4.70-6.10) 10^6/uL Hgb 8.3 L (14.0-18.0) g/dL Hct 25.8 L (42.0-52.0) % MCV 113.7 H (80.0-94.0) fL MCH 36.6 H (27.0-31.0) pg MCHC 32.2 (32.0-36.0) g/dL RDW 18.6 H (12.0-15.0) % Plt Count 469 H (130-450) 10^3/uL MPV 9.7 (7.4-11.4) fL Neut # (Auto) Not Reportable Lymph # (Auto) Not Reportable [place] # (Auto) Not Reportable Eos # (Auto) Not Reportable Baso # (Auto) Not Reportable Absolute Nucleated RBC Not Reportable Total Counted 100 Band Neuts % (Manual) 5 (0 - 10) % Abnorm Lymph % (Manual) 0 % Metamyelocytes % 3 H ( - 0) % Myelocytes % 4 H ( - 0) % Nucleated RBC % Not Reportable Neutrophils # (Manual) 5.0 (1.5-6.6) 10^3/uL Lymphocytes # (Manual) 1.8 (1.5-3.5) 10^3/uL Monocytes # (Manual) 0.8 (0.0-1.0) 10^3/uL Eosinophils # (Manual) 0.0 (0-0.7) 10^3/uL Basophils # (Manual) 0.1 (0-0.1) 10^3/uL Nucleated RBCs 1 % Differential Comment MANUAL DIFFERENTIAL RBC Morph Micro Appear 1+ MACROCYTOSIS (NORMAL) Sodium 136 (135-145) mmol/L Potassium 4.0 (3.5-5.0) mmol/L Chloride 101 (101-111) mmol/L Carbon Dioxide 25 (21-32) mmol/L Anion Gap 10.0 (6-13) BUN 12 (6-20) mg/dL Creatinine 0.5 L (0.6-1.2) mg/dL Estimated GFR (MDRD) 168 (>89) Glucose 139 H (70-100) mg/dL Calcium 8.8 (8.5-10.3) mg/dL Magnesium 2.0 2.1 (1.7-2.8) mg/dL Prealbumin 9 L (18-45) mg/dL Triglycerides 170 H ( - 149) mg/dL ABX Reporting Has patient been on IV antibiotics over the past 48 hours?: Yes Assessment/Plan - Problem List (1) Necrotizing pancreatitis Impression: Alcoholic pancreatitis/necrotizing pancreatitis with pseudocyst, by CT, worse with this readmit since last CT 05/24 . Fever and tachycardia >>started meropenem on 05/31 , afebrile since then CRP slowly improving but still 19.7 today He is tolerated liquid>>pureeed>>soft low fiber since yesterday night Spoke w/ [facility] on 06/02/21 who recommended: -Antibiotics should be 10 - 14 days, currently on iv Meropenem, Doesnt need to be IV,can change to Augmentin plus Flagyl when taking po diet without pain (tolerating PO food, inflammatory markers improving), -try low fat diet, but if he gets pain,then needs [place] feeds (delivered beyond Ligament of Treitz). - GI did say pt certainly could worsen and pancreas service at would certainly accept such a patient (if beds open). Repeat imaging of the pancreas in -4 weeks from the last imaging, PCP needs to arrange. Plan: switched from meropenem to Augmentin plus Flagyl starting today For pain, will order what patient requested PO; oxycodone 5 mg q8h bhavik, taken with tylenol 500mg q8h bhavik and taken with peptobismol (from home) q8h If no fever today, no increase pain on oral abx and oral meds, dc in am. I would recommend weekly labs of CMP, CRP, CBC with his PCP for the next 3-4 weeks (2) Pancreatic insufficiency Assessment/Plan: Pancreatic enzymes have been started with pured diet TPN will be stopped today with last bag Plan: e-scribe all his meds to pharmacy today to make sure there will be some waiting for him when dc tomorrow (3) Anemia Assessment/Plan: His hemoglobin got as low as 6.9 during this hospitalization, very likely from hemodilution. 06/05 he had a transfusion and felt much better and was less pale. Follow CBC daily and he is stable at 8.3 today Transfuse if hemoglobin again under 7 (4) Alcohol abuse Assessment/Plan: He admitted to me that he "did himself in by drinking so much for so many years". He will not speak to social work regarding his alcohol abuse, has refused their visits twice He is getting thiamine and folate supplements and he has additives in TPN (which will stop today) There are no signs of hepatic encephalopathy (5) Urinary retention Assessment/Plan: New meds for BPH were started during this hospitalization (6) Hypomagnesemia Assessment/Plan: Replace. Follow Mag intermittently (7) Severe protein-calorie malnutrition Assessment/Plan: As per history. Protein supplements have been ordered To be off TPN today (8) Hypokalemia Assessment/Plan: Resolved (9) Thrombocytosis Assessment/Plan: Resolved (10) Pruritis Assessment/Plan: the highest his bili has been is 1.5 so not a liver failure issue. they seem to be all over his legs and no where else. Intensely pruritis. Plan: I will ask RN to document w photo in case he returns or this worsens. topic cream for now for comfort. If spreads, consider scabies
[2021-06-07] MEDS: metroNIDAZOLE 250 MG TABLET PO SCH ×2 (09:25→17:42)
[2021-06-07] MEDS: ENOXAPARIN 40 MG/0.4 ML SYRINGE SUBQ SCH (09:25)
[2021-06-07] MEDS: LIPASE/PROTEASE/AMYLASE CAPSULE PO SCH ×3 (09:26→17:42)
[2021-06-07] MEDS: AMOX/CLAV 875 MG/125 MG TABLET PO SCH ×2 (09:26→20:43)
[2021-06-07] MEDS: LACTATED RINGERS 1,000 ML IV SCH (13:01)
[2021-06-07] MEDS: TAMSULOSIN 0.4 MG CAPSULE PO SCH (20:43)
[2021-06-08] MEDS: metroNIDAZOLE 250 MG TABLET PO SCH ×2 (01:50→08:11)
[2021-06-08] MEDS: SODIUM CHLORIDE FLUSH 0.9% 10 ML SYRINGE IVP SCH ×2 (01:50→08:12)
[2021-06-08] MEDS: BISMUTH SUBSALICYLATE 525 MG PO SCH ×2 (01:51→08:12)
[2021-06-08] MEDS: ACETAMINOPHEN 500 MG TABLET PO SCH (06:43)
[2021-06-08] MEDS: oxyCODONE 5 MG TABLET PO SCH (06:44)
[2021-06-08 06:47] LABS: BASOPHILS % (AUTO) 0.8 %; EOSINOPHILS % (AUTO) 1.4 %; HCT - HEMATOCRIT 25.7 % (42.0-52.0); HGB - HEMOGLOBIN 8.1 g/dL (14.0-18.0); LYMPHOCYTES % (AUTO) 20.2 %; MEAN CORPUSCULAR HEMOGLOBIN 35.7 pg (27.0-31.0); MEAN CORPUSCULAR HGB CONC 31.5 g/dL (32.0-36.0); MEAN CORPUSCULAR VOLUME 113.2 fL (80.0-94.0); MEAN PLATELET VOLUME 9.3 fL (7.4-11.4); MONOCYTES % (AUTO) 16.8 %; NEUTROPHILS % (AUTO) 50.8 %; PLT - PLATELET COUNT 551 10^3/uL (130-450); RED BLOOD COUNT 2.27 10^6/uL (4.70-6.10); RED CELL DISTRIBUTION WIDTH 17.9 % (12.0-15.0); WHITE BLOOD COUNT 8.5 x10^3/uL (4.8-10.8)
[2021-06-08 06:54] LABS: ABNORMAL LYMPHS % (MANUAL) 0 %
[2021-06-08 07:01] LABS: CALCIUM 8.9 mg/dL (8.5-10.3); CREATININE 0.7 mg/dL (0.6-1.2)
--- NOTE | 2021-06-08 07:15 | Discharge Plan ---
Discharge Plan Problem Reviewed?: Yes Disposition: Home, Self Care Condition: Stable Prescriptions: Amox/Clav 875/125 [Augmentin 875/125 Tab] 1 tablet PO Q12H 10 Days #14 tablet metroNIDAZOLE [Flagyl] 500 mg PO Q8H #42 tablet Tamsulosin [Flomax] 0.4 mg PO QPM #30 cap Lipase/Protease/Amylase [Asael Jefferson 16,800 Unit Cap] 3 each PO TIDWM #270 cap oxyCODONE [Roxicodone] 5 mg PO Q8H PRN #21 tablet PRN Reason: Abdominal Pain Diet: Soft (low fat, small meals) Activity Restrictions: Activity as Tolerated Shower Restrictions: No Driving Restrictions: No Instruction Topics: Pancreatitis Chronic Dc, Pancreatitis, Pancrelipase capsules, Cooking Tips Low Fat Health Concerns: You were admitted for acute pancreatitis due to alcohol abuse. You left AGAINST MEDICAL ADVICE in May 26 but returned because your abdominal pain, diarrhea, and nausea were not improved and getting worse. Your CAT scan confirmed that your pancreas is getting worse. You have an enlarging "pseudocyst" which is a word we used to describe a fluid mass arising out of the pancreas due to inflammation. Some of your pancreas probably became infected and rotted. You were started on antibiotics and have slowly improved. While here you received artificial nutrition through your veins. You were kept without food for a few days. You gradually improved and we have been advancing your diet. You are now eating a soft mechanical diet, low in fat. Plan of Treatment: 1. Please eat small, low-fat, soft meals for the next few weeks and to completely recover. When you eat a meal, please take pancreatic enzymes with each meal. It is 3 capsules before each meal. This may be for the rest of your life. 2. We cannot stress enough that your pancreas is in a very tenuous position. If there is any further damage to it through alcohol, the next episode of pancreatitis could be lethal for you. Please do not drink any alcohol at all including such things as Robitussin. Know that your body is still under stress is your heart rate. It is consistently fast about 100 210. Normal heart rate is in the 70s. 3. Because of the pancreatic cyst that has formed, you will need to repeat a CAT scan of your abdomen by July 08. Your primary care provider will need to review that CAT scan to see if you are on the mend or if you need to be referred to general surgery. You will also need to complete antibiotic therapy for the pancreas infection. We spoke to a gastroenterology specialist and he recommends a total of 2 weeks of antibiotic therapy. You have already received 1 week in the hospital and you will be sent home on Augmentin and Flagyl to complete another 7 days. While you are taking the antibiotic, please buy an [id number] probiotic to take twice a day. This will help reduce the amount of diarrhea antibiotics can cause. We will also reduce the risk of something called C. difficile diarrhea. 4. Please see your primary care provider, Dr. Kentrell Gonzales, in the next 2 weeks. 5. In order to control your pain you are going home on a mixture of Tylenol, Pepto-Bismol, and oxycodone to be taken no more than 3 times a day. If you need further pain medicine you will need to call Dr. Gonzales to get a prescription. He will not be allowed to prescribe it over the phone, and you will need to see him in the office in order to get that medicine. Care Goals: To become clean and sober without any use of alcohol. To have the pseudocyst of your pancreas resolved without any surgery. Assessment: Patient understands care goals and states that he will follow through. No Smoking: If you smoke, Please STOP! Call for help. Follow-up with: Kentrell Gonzales MD [Primary Care Provider] -
[2021-06-08 07:38] LABS: BAND NEUTROPHILS % (MANUAL) 3 %; DIFFERENTIAL COMMENT MANUAL DIFFERENTIAL; LYMPHOCYTES # (MANUAL) 1.7 10^3/uL (1.5-3.5); LYMPHOCYTES % (MANUAL) 17 %; METAMYELOCYTES % (MANUAL) 4 %; MONOCYTES # (MANUAL) 1.2 10^3/uL (0.0-1.0); MYELOCYTES % (MANUAL) 4 %; NEUTROPHILS # (MANUAL) 4.9 10^3/uL (1.5-6.6); NUCLEATED RBC (MANUAL) 1 %; REACTIVE LYMPHS % (MANUAL) 3 %
[2021-06-08 08:11] VITALS: BP 140/82
[2021-06-08] MEDS: AMOX/CLAV 875 MG/125 MG TABLET PO SCH (08:11)
[2021-06-08] MEDS: LIPASE/PROTEASE/AMYLASE CAPSULE PO SCH (08:12)
[2021-06-08] MEDS: ENOXAPARIN 40 MG/0.4 ML SYRINGE SUBQ SCH (08:12)
--- NOTE | 2021-06-08 10:24 | DISCHARGE SUMMARY ---
Discharge Summary Admit Date: 05/31/21 Discharge Date: 06/08/21 Discharging Provider: Loren Alvarado MD Primary Care Provider: Kentrell Gonzales MD Code Status: Do Not Attempt Resuscitation Condition at Discharge: Stable Discharge Disposition: 01 Home, Self Care - DIAGNOSES Discharge Diagnoses with Status of Each Condition: 1. Necrotizing pancreatitis 2. Pancreatic insufficiency 3. Anemia with thrombocytosis (anemia of chronic disease with macrocytic anemia from alcohol abuse) 4. Chronic alcohol abuse 5. Urinary retention 6. Hypomagnesemia, hypokalemia 7. Severe protein calorie malnutrition 8. Pruritus 9. Neoplasm of ureter, uncertain behavior. 10. High anion gap metabolic acidosis - HPI History of Present Illness: Per ED; patient known to service, was just dc/d last week 05/26 for alcoholic pancreatitis, left AMA, continued to drink since discharge with worsening adominal /epigastric pain. BAL 200 today On presentation; VS notable for modestly elevated HR 108, 114, BP 99/62, 107/65, no hypoxia 99-100 % on RA, Afebrile Labs notable for; Modest leukocytosis 12.9 1% bands ( was 19.8 on 05/24 admit; 10.2 on 05/26 discharge); hypokalemia K 3.0 (was 3.3 on discharge ) Anion gap acidosis w/ C02 19, AG 20, BUN/CR normal at 7/0.7. (was 30/1.1 05/25, Cr 5.7 on 05/23 admit) BAL 200 AST ALT 105/42. Lipase and amylase not elevated ( likely chronic pancreatitis; lipase has not been elevated w/ 05/24 admit despite clear pancreatic inflammation on CT ) Ua negative/ unremarkable Corresponding CTAbdomen today worse than last week with increasing pseudocysts and evident necrosis,no gas CT detail; Atrophic pancreas . Interval worsening of previous appearance of pancreatitis w/ enlarging adjacent fluid collections c/w pseudocyst formation enlarged compared w/ prior exam. . Also more heterogeneouslow attenuation appearance of pancreas parenchyma w/ decreased enhancement suspicious for de veloping necrotizing pancreatitis gabriel distal body and tail. Portions of the fluid collection gabriel along pancreatic tail extended to paracolic gutter and deep left pelvic sidewall c/w prior exam late april. Per patient/and review of recent H/P and AMA discharge 60 year old male who was an inpatient from 05/24 - 05/25; presented at that time with primary complaint of ~ 1 month diarrhea,lower abdominal pain that raiated to groin with nausea and voting but no emesis x 2 days prior. No fever, chills or other new symptoms He was hemodynamically stable , but with leukocytosis WBC of 19.8 and a left shift. Abdominal CT w/ pancreatic inflammaton and pseudocysts (though with lower abdominal pain and ? colitis on CT) and DELIO.BUN / Cr 104/4.5 and significant hypokalemia He reported "Diarrhea" x 1 month reported 3-10 BM's / day, unformed, loose floating and foul smelling and had already seen PCP re: the diarrhea. Denies change in diet. . Stool negative for Cdif last week. Managed conservatively w/ IVF but in the ICU due to significatn hypkalemia K 2.1, and required a central line. Renal fxn improved, however, with volume repletion anemia more pronounced. Hgb 8.7 No evident acute bleed, stool negative. Folate, B12 in normal range; FE 13, TIBC 112, % sat 12, transferrin 80 Ferritin 3144 (in setting of acute pancreatitis), Provider; Dr Calabrese recommended stay for further eval of anemia but patient declined to stay for furhter eval of the anemia. He chose to leave [place] on 05/26. In discussing that summary of the 05/24-05/26 admission with Mr Mayes, he states that before that 05/24 admission, he was "celebrating" (with alcohol) the report that the R renal mass was stable and his development technologist Dr Patricio "told me it wasnt going to kill him in the next few years. " Has little insight into the severeity of his pancreatic inflammation r/t ETOH. Denies binging. "I just drink vodka and water , "not even 4/day". On return home; patient continued to drink. His abdominal pain has not improved since d/c 5 days ago on 05/26. He drinks vodka with water, very unclear how much he drinks, but reports he just lives his life which is great bc he's retired, I dont drive and I'm retired so I drink. - CONSULTS | PROCEDURES Procedures: Abdomen pelvis CT with steatosis of the liver. Spleen unremarkable. Gallbladder unremarkable. Punctate nonobstructing left renal stone. Mass in the right lower ureter that is 4.1 x 3.2 cm. Pancreas is atrophic with progression of previous heterogeneous parenchymal attenuation appearing overall more diffusely attenuated and decreased enhancement particularly within the pancreatic distal body and tail. Complex fluid collections identified at the region of the pancreatic tail as well as anterior to the body and head remain present and have enlarged compared to prior exam. Portions of the fluid collection particularly along the pancreatic tail have extended to the paracolic gutter and deep left pelvic sidewall compared to prior exam. - HOSPITAL COURSE Hospital Course: The patient was supported through his pancreatitis with n.p.o. status, IV fluids, and antibiotics. [facility] gastroenterology on-call was consulted for overall management. Once he was started on meropenem, he was afebrile and white cell count came down to normal. He was started on clear liquids then pured food for mechanical soft. It was emphasized that he needs to be in a permanent low-fat diet. Recommendations from gastroenterology included antibiotics for 10 to 14 days. Could be switched over to oral. If his pain recurs on food, he will need [place] tube feeds (delivered beyond the ligament of Treitz). Pain was controlled with a personal cocktail of oxycodone 5 mg every 8 hours, Tylenol 500 mg every 8 hours, and Pepto-Bismol every 8 hours. If he took more than 5 mg of oxycodone diffuse pruritus and nausea was so severe that he hated it. He also did not like Benadryl for the pruritus. Pruritus developed weeks ago. He says is been getting worse. He has been scratching his legs raw. Anemia was as low as 6.9 during his hospitalization and he required transfusion. He had minimal alcohol withdrawal. Urinary retention from BPH was treated with tamsulosin. Electrolyte disorders with low magnesium and low potassium were treated with supplementation. Severe protein calorie malnutrition was noted during his stay and protein supplements were ordered. Thrombocytosis associated with his anemia was noted. He was on low molecular weight heparin throughout his stay. It should be noted that metamyelocytes and myelocytes were seen in his differential. The patient was discharged in stable condition but with guarded prognosis. He has consistent tachycardia in the low 100s that is sinus. Temperature is 36.9. Blood pressure 140/82. Respirations 19. 97% on room air. He is 5 foot 10 inches tall and weighs 71 kg. He is a lean lanky disheveled male that looks older than his stated age. Bad dentition. Neck is supple with shotty adenopathy. Lungs have coarse upper airway sounds but are otherwise clear. No increased respiratory effort. He has a tachycardic regular rate and rhythm. Systolic ejection murmur audible. Abdomen was soft, but he has tenderness along the left midabdomen and left lower quadrant. I explained to him that the acids from his pancreas have drifted down his paracolic gutter to affect the lower quadrant. He does not have Montesinos-Valentin sign. Normal bowel sounds. Extremities thin with muscle wasting of arms and legs. Skin of his legs is riddled with punctate lesions from where he has been scratching. None are infected. He is alert, oriented, lucid speech pattern. No tremulousness. Able to ambulate in his room without assistance. Eating 50 to 100% of his food. Greater than 30 minutes was spent coordinating discharge. I have asked him to please see his primary care provider Dr. Kentrell Gonzales. Instructions to the patient include: #1. Follow-up CT in 1 month #2. Absolutely no alcohol whatsoever including mouthwash or Robitussin. He has been warned that he is in a precipice of disaster if he returns to drinking. His condition could be lethal. He asks if CBD gummy bears are ok? Yes. #3. Small, low-fat meals with pancreatic enzyme capsules (3) before meals. multivitamin once a day is also recommended. #4. Complete Flagyl 500 mg every 8 hours and Augmentin 875/125 twice daily for 7 more days #5. Oxycodone 5 mg, no. 21 called into pharmacy. If he needs refills he will need to call Dr. Gonzales's office. #6. Discussed the renal mass with his primary care provider to see if he wants referral or any work-up. During the stay the patient wanted to be DO NOT RESUSCITATE and stated "I have had a good life". #7. Check blood pressure on lisinopril and amlodipine. He has been consistently 142-149 systolic during these last few days. #8. Consider referral to gastroenterology service. If the CT scan shows an organized fluid collection with a rind, he may be a surgical candidate for treatment. #9. Suggest follow-up CBC, CMP, C-reactive protein on a weekly basis #10. Dermatology referral for his pruritis. The lesions on his legs are from scratching. Could be scabies, opiate induced itching, liver/pancreas induced itching. If this unfortunate gentleman does regress with regards to alcohol abuse, and he returns to our ER with pancreatitis, he would be a candidate for a higher level of care transfer. He would need a specialized NG tube, and general surgery spe cialization in pancreas and biliary disorders with probable need for urgent surgery. - ALLERGIES Allergies/Adverse Reactions: Allergies Allergy/AdvReac Type Severity Reaction Status Date / Time Opioids - Morphine Analogues AdvReac Itching Verified 05/31/21 12:40 - MEDICATIONS Home Medications: Ambulatory Orders Medication Instructions Recorded Confirmed Lisinopril [Zestril] 40 mg PO DAILY 05/24/21 06/01/21 allopurinoL [Allopurinol] 400 mg PO DAILY 05/24/21 06/01/21 amLODIPine [Norvasc] 5 mg PO DAILY 05/24/21 06/01/21 Amox/Clav 875/125 [Augmentin 1 tablet PO Q12H 10 Days #14 tablet 06/07/21 875/125 Tab] Lipase/Protease/Amylase [Pancreaze 3 each PO TIDWM #270 cap 06/07/21 16,800 Unit Cap] metroNIDAZOLE [Flagyl] 500 mg PO Q8H #42 tablet 06/07/21 oxyCODONE [Roxicodone] 5 mg PO Q8H PRN #21 tablet 06/07/21 Tamsulosin [Flomax] 0.4 mg PO QPM #30 cap 06/08/21 - LABS Result Diagrams: 06/08/21 06:36 06/08/21 06:36
== END 2021-06-08 11:13 | disposition home or self-care (01) | DRG 438 ==
LOC: ED 12:25 → MS2 15:53
PROVIDERS: ADMIT Nurse Practitioner; ATTEND Specialist
PROC: 30233N1 Transfusion of Nonautologous Red Blood Cells into Peripheral Vein, Percutaneous Approach (ICD-10-PCS; principal; 2021-06-05)
DX: K85.21 Alcohol induced acute pancreatitis with uninfected necrosis (principal); E43 Unspecified severe protein-calorie malnutrition; E87.2 Acidosis; F10.239 Alcohol dependence with withdrawal, unspecified; K86.3 Pseudocyst of pancreas; K86.89 Other specified diseases of pancreas; Y90.7 Blood alcohol level of 200-239 mg/100 ml; D63.8 Anemia in other chronic diseases classified elsewhere; D47.3 Essential (hemorrhagic) thrombocythemia; Z66 Do not resuscitate; E87.6 Hypokalemia; K76.0 Fatty (change of) liver, not elsewhere classified; N28.89 Other specified disorders of kidney and ureter; D41.20 Neoplasm of uncertain behavior of unspecified ureter; L29.9 Pruritus, unspecified; E83.42 Hypomagnesemia; D64.89 Other specified anemias; Z68.22 Body mass index [BMI] 22.0-22.9, adult; N40.1 Benign prostatic hyperplasia with lower urinary tract symptoms; R33.8 Other retention of urine; R00.0 Tachycardia, unspecified; R01.1 Cardiac murmur, unspecified; M62.59 Muscle wasting and atrophy, not elsewhere classified, multiple sites; Z87.891 Personal history of nicotine dependence; M10.9 Gout, unspecified
CPT/HCPCS: 0202U; 36415; 74177; 80048; 80053; 80320; 81003; 82150; 82330; 83690; 83735; 84100; 84134; 84478; 85025; 85027; 85610; 85730; 86140; 86141; 86850; 86900; 86901; 86920; 87040; 93005; 93306; 96360; 99284; 99285; A9270; J1650; J2185; J3490; J7040; J7120; Q9967; 81001; 87086